=== PATIENT | male | born 1955 | race Two or more races ===

== ENCOUNTER 2016-11-17 23:37 | Inpatient (IN) | payer MEDICAID ==
[~2016-11-17] VITALS: Ht 167.6 cm; Wt 72.6 kg
[~2016-11-17 23:37] MED LIST: ARICEPT23 MG ORAL; ASPIR 8181 MG ORAL; ATORVASTATIN CA20 MG ORAL; ATORVASTATIN CA40 MG ORAL; CALCIUM 600 +1 EAC6 PO; DILANTIN100 MG ORAL; DONEPEZIL HCL5 M2 ORAL; KEPPRA500 M4 ORAL; LEVETIRACETAM500 MG ORAL; Levetiracetam ORAL; MULTIVITAMINS1 EAC2 ORAL; SERTRALINE HCL25 MG ORAL; SERTRALINE20 MG/1 M1 PO
[2016-11-17] MEDS ORDERED: levETIRAcetam 500mg vial IV ONE (23:40)
[2016-11-18] VITALS (10 sets, daily range): BP systolic 109–128; BP diastolic 53–88
[2016-11-18] MEDS ORDERED: levETIRAcetam 500 MG in D5W 110 ML IV ONE ×2
[2016-11-18 00:04] LABS: BASOPHILS % (AUTO) 1.5 % (0.0-2.0); EOSINOPHILS % (AUTO) 3.8 % (0.0-3.0); LYMPHOCYTES % (AUTO) 51.4 % (20.0-45.0); MEAN CORPUSCULAR HEMOGLOBIN 30.7 PG (27.0-31.0); MEAN CORPUSCULAR HGB CONC 34.8 G/DL (32.0-36.0); MEAN CORPUSCULAR VOLUME 88 FL (80-99); MEAN PLATELET VOLUME 6.7 FL (6.5-10.1); MONOCYTES % (AUTO) 11.3 % (1.0-10.0); PLATELET COUNT 286 K/UL (150-450); RED BLOOD COUNT 4.45 M/UL (4.70-6.10); RED CELL DISTRIBUTION WIDTH 12.3 % (11.6-14.8); WHITE BLOOD COUNT 6.2 K/UL (4.8-10.8)
[2016-11-18 00:32] LABS: ANION GAP 19 (5-15); CARBON DIOXIDE 25 mEQ/L (20-30); CHLORIDE 94 mEQ/L (98-107); CREATININE 1.2 mg/dL (0.7-1.2); GLOMERULAR FILTRATION RATE > 60 mL/min (>60); HEMOLYSIS 3; SODIUM 138 mEQ/L (135-145)
[2016-11-18] MEDS ORDERED: Phenytoin 500 MG in NS 110 ML IVPB ONE (00:45)
[2016-11-18] MEDS ORDERED: Phenytoin 250mg/5ml vial ONE (00:50)
--- NOTE | 2016-11-18 02:16 | Emergency Room Report ---
History of Present Illness General Chief Complaint: Seizure Source: Family Member, Medical Record, EMS Present Illness HPI This is a 60-year-old male with a history of seizure, CVA and dementia. Unknown etiology for his CVA. He gets frequent seizure. He is currently taking Dilantin Keppra. Per his son, he is compliant. There is no change in his regimen. No alcohol drugs. No sleep deprivation. He presents with 2 seizure activity tonight. He was tonic-clonic in nature. It lasted about 5 minutes. EMS was called. He had another seizure activity on route. He was given 5 mg of Versed IM. On arrival patient is unresponsive. No other complaint. History is from his son. Allergies: Coded Allergies: No Known Allergies (Unverified , 01/07/16) Patient History Past Medical History: see triage record, old chart reviewed, CVA/TIA, seizures Past Surgical History: other Pertinent Family History: none Social History: Denies: smoking Immunizations: other Reviewed Nursing Documentation: PMH: Agreed, PSxH: Agreed Nursing Documentation-PMH Past Medical History: No History, Except For Hx Cardiac Problems: Yes Hx Hypertension: Yes Hx Diabetes: Yes Hx Cancer: No Hx Gastrointestinal Problems: No Hx Neurological Problems: Yes - Altzhaimers, Dementia Hx Cerebrovascular Accident: Yes Hx Dementia: Yes Hx Alzheimer's Disease: Yes Hx Seizures: Yes Hx Weakness: Yes Review of Systems Eye: Denies: blurred vision, eye pain ENT: Denies: ear pain, nose congestion, throat swelling Respiratory: Denies: cough, shortness of breath Cardiovascular: Denies: chest pain, palpitations Gastrointestinal: Denies: abdominal pain, diarrhea, nausea, vomiting Musculoskeletal: Denies: back pain, joint pain Skin: Denies: rash Neurological: Denies: headache, numbness Endocrine: Denies: increased thirst, increased urine Hematologic/Lymphatic: Denies: easy bruising All Other Systems: negative except mentioned in HPI Physical Exam Vital Signs Date Time Temp Pulse Resp B/P Pulse Ox O2 Delivery O2 Flow Rate FiO2 11/17/16 23:32 100 18 140/78 100 Room Air vitals normal Sp02 EP Interpretation: reviewed, normal General Appearance: well appearing, no apparent distress, Postictal Head: normocephalic, atraumatic Eyes: bilateral eye EOMI, bilateral eye PERRL ENT: hearing grossly normal, normal pharynx Neck: full range of motion, supple, no meningismus Respiratory: chest non-tender, lungs clear, normal breath sounds Cardiovascular #1: regular rate, rhythm, no murmur Gastrointestinal: normal bowel sounds, non tender, no mass, no organomegaly, no bruit, non-distended Musculoskeletal: back normal, normal range of motion Neurologic: grossly normal Skin: warm/dry Medical Decision Making Diagnostic Impression: Primary Impression: Seizure disorder ER Course Patient presents with seizure. No trauma. He becoming more alert but still confused. I gave him extra dose of Keppra and Dilantin. We'll observe him until he is more awake. At that point, we'll discharge home with family. it is now 6:30 AM. On recheck this more awake but still confused. Because of this, I will either place him in telemetry observation versus transfer. No focal deficit to indicate CVA. Lab Results Impression labs normal Last Vital Signs Date Time Temp Pulse Resp B/P Pulse Ox O2 Delivery O2 Flow Rate FiO2 11/18/16 00:01 95 19 114/70 100 Room Air Status: improved Disposition: PLACE IN OBSERVATION Condition: Stable Scripts Diazepam (DIASTAT ACUDIAL) 1 Each Kit 1 EACH RC ONCE, #1 KIT Prov: ENZO DUKE M.D. 11/18/16 Referrals: [facility],REFERRING (PCP) Patient Instructions: Seizure, Adult Additional Instructions: Followup with your DrAlisa in 2-3 days. Return if symptom worsen. ENZO DUKE M.D. Nov 18, 2016 02:16
[2016-11-18] MEDS ORDERED: DIASTAT ACUDIA1 EAC1 RC (02:37)
[2016-11-18] MEDS ORDERED: Miralax 17gm pkt ORAL PRN ×2 (10:00→21:00)
[2016-11-18] MEDS ORDERED: Zolpidem 5mg tab ORAL PRN ×2 (10:00→21:00)
[2016-11-18] MEDS ORDERED: Mylanta II UD 30ml ORAL PRN ×2 (10:00→18:00)
[2016-11-18] MEDS ORDERED: LORazepam Inj 2mg/ml 1ml IV PRN ×2 (10:00→16:00)
[2016-11-18] MEDS ORDERED: Morphine Sulfate 2mg/ml Inj IVP PRN ×2 (10:00→17:00)
--- NOTE | 2016-11-18 12:30 | History and Physical ---
History of Present Illness General Date patient seen: Nov 18, 2016 Reason for Hospitalization: Seizure Present Illness HPI 60-year-old male with a history of seizure, CVA and dementia, compliant with meds, brought in with CC 2 seizure activity within one day. He was tonic- clonic in nature. It lasted about 5 minutes. EMS was called. He had another seizure activity on route. He was given 5 mg of Versed IM. On arrival to ER patient was unresponsive. Pt is admitted to telemetry for further evaluation. Currently pt is awake, looks comfortable but nor responding to any question even in Urdu. Pts underlying mental status is unknown at this time Allergies: Coded Allergies: No Known Allergies (Unverified , 01/07/16) Medication History Scheduled Aspirin* (Aspir 81*), 81 MG ORAL DAILY, (Reported) Atorvastatin Calcium* (Atorvastatin Calcium*), 40 MG ORAL BEDTIME, (Reported) Calcium Carbonate/Vitamin D3 (Calcium 600 + Vit D 400 Tablet), 1 EACH PO DAILY, (Reported) Diazepam (Diastat Acudial), 1 EACH RC ONCE Donepezil Hcl (Aricept), 5 MG ORAL DAILY, (Reported) Levetiracetam (Keppra), 500 MG ORAL EVERY 12 HOURS, (Reported) Levetiracetam* (Levetiracetam*), 500 MG ORAL TWICE A DAY, (Reported) Multivitamins* (Multivitamins*), 1 TAB ORAL DAILY, (Reported) Phenytoin Sodium Extended* (Dilantin*), 300 MG ORAL BEDTIME, (Reported) Sertraline Hcl (Sertraline Hcl), 50 MG PO DAILY, (Reported) [Levetiracetam], 500 MG ORAL Q12HR Patient History Healthcare decision maker Resuscitation status Advanced Directive on File No Past Medical/Surgical History Past Medical/Surgical History: (1) Seizure disorder (2) DM (diabetes mellitus) (3) s/p multiple strokes with dementia, spastic quadriparesis Review of Systems All Other Systems: negative except mentioned in HPI Physical Exam General Appearance: WD/WN Lines, tubes and drains: peripheral, central line HEENT: normocephalic, atraumatic Neck: non-tender, normal alignment Respiratory/Chest: chest wall non-tender, lungs clear Cardiovascular/Chest: normal peripheral pulses, normal rate Abdomen: normal bowel sounds Last 24 Hour Vital Signs Date Time Temp Pulse Resp B/P Pulse Ox O2 Delivery O2 Flow Rate FiO2 11/18/16 11:40 98.1 94 20 123/74 96 Room Air 11/18/16 08:53 98.1 87 20 127/74 97 Room Air 11/18/16 08:24 85 16 109/59 98 Room Air 11/18/16 08:00 85 16 109/59 98 Room Air 11/18/16 05:23 90 18 128/53 97 Room Air 11/18/16 03:54 89 14 126/88 96 Room Air 11/18/16 02:28 87 12 118/68 97 Room Air 11/18/16 00:01 95 19 114/70 100 Room Air 11/18/16 00:01 95 19 Room Air 11/17/16 23:32 100 18 140/78 100 Room Air Intake and Output 11/17/16 11/18/16 19:00 07:00 Intake Total 1235 ml Balance 1235 ml Intake IV Total 1235 ml Laboratory Tests Test 11/17/16 23:50 White Blood Count 6.2 K/UL (4.8-10.8) Red Blood Count 4.45 M/UL (4.70-6.10) L Hemoglobin 13.7 G/DL (14.2-18.0) L Hematocrit 39.2 % (42.0-52.0) L Mean Corpuscular Volume 88 FL (80-99) Mean Corpuscular Hemoglobin 30.7 PG (27.0-31.0) Mean Corpuscular Hemoglobin Concent 34.8 G/DL (32.0-36.0) Red Cell Distribution Width 12.3 % (11.6-14.8) Platelet Count 286 K/UL (150-450) Mean Platelet Volume 6.7 FL (6.5-10.1) Neutrophils (%) (Auto) 32.0 % (45.0-75.0) L Lymphocytes (%) (Auto) 51.4 % (20.0-45.0) H Monocytes (%) (Auto) 11.3 % (1.0-10.0) H Eosinophils (%) (Auto) 3.8 % (0.0-3.0) H Basophils (%) (Auto) 1.5 % (0.0-2.0) Sodium Level 138 mEQ/L (135-145) Potassium Level 4.0 mEQ/L (3.4-4.9) Chloride Level 94 mEQ/L (98-107) L Carbon Dioxide Level 25 mEQ/L (20-30) Anion Gap 19 (5-15) H Blood Urea Nitrogen 16 mg/dL (7-23) Creatinine 1.2 mg/dL (0.7-1.2) Estimat Glomerular Filtration Rate > 60 mL/min (>60) Glucose Level 107 mg/dL (74-106) H Calcium Level 9.0 mg/dL (8.6-10.2) Phenytoin (Dilantin) Level 9.3 ug/mL (10-20) L Height (Feet): 5 Height (Inches): 6.00 Weight (Pounds): 160 Medications Current Medications Medications (Trade) Dose Ordered Sig/Radha Route PRN Reason Start Time Stop Time Status Last Admin Dose Admin Acetaminophen (Tylenol) 650 mg Q4H PRN ORAL fever 11/18/16 10:00 12/18/16 09:59 Al Hydroxide/Mg Hydroxide (Mylanta II) 30 ml Q6H PRN ORAL dyspepsia 11/18/16 10:00 12/18/16 09:59 Aspirin (Ecotrin) 81 mg DAILY ORAL 11/19/16 09:00 12/19/16 08:59 Atorvastatin Calcium (Lipitor) 40 mg BEDTIME ORAL 11/18/16 21:00 12/18/16 20:59 Dextrose (Dextrose 50%) STAT PRN IV Hypoglycemia 11/18/16 10:00 12/18/16 09:59 Heparin Sodium (Porcine) (Heparin 5000 units/ml) 5,000 units EVERY 12 HOURS SUBQ 11/18/16 21:00 12/18/16 20:59 Levetiracetam (Keppra) 500 mg EVERY 12 HOURS ORAL 11/18/16 11:00 12/18/16 10:59 11/18/16 11:08 Lorazepam (Ativan 2mg/ml 1ml) 2 mg EVERY HOUR PRN IV seizures 11/18/16 10:00 11/25/16 09:59 Morphine Sulfate (Morphine Sulfate) 1 mg EVERY 4 HOURS PRN IVP For Pain 11/18/16 10:00 11/25/16 09:59 Ondansetron HCl (Zofran) 4 mg Q6H PRN IVP Nausea & Vomiting 11/18/16 10:00 12/18/16 09:59 Phenytoin (Dilantin) 300 mg BEDTIME ORAL 11/18/16 21:00 12/18/16 20:59 Polyethylene Glycol (Miralax) 17 gm HSPRN PRN ORAL Constipation 11/18/16 10:00 12/18/16 09:59 Zolpidem Tartrate (Ambien) 5 mg HSPRN PRN ORAL Insomnia 11/18/16 10:00 12/18/16 09:59 Assessment/Plan Problem List: (1) Uncontrolled seizures ICD Codes: R56.9 - Unspecified convulsions SNOMED: 86415842 (2) s/p multiple strokes with dementia, spastic quadriparesis (3) Seizure disorder ICD Codes: G40.909 - Epilepsy, unspecified, not intractable, without status epilepticus SNOMED: 944884126 Assessment/Plan neuro evaluation resume seizure meds aspiration precaution pt/ot LUKE ANDINO Nov 18, 2016 12:30
--- NOTE | 2016-11-18 13:08 | Neurology Progress Note ---
Objective Physical Exam Last Vital Signs Date Time Temp Pulse Resp B/P Pulse Ox O2 Delivery O2 Flow Rate FiO2 11/18/16 11:40 98.1 94 20 123/74 96 Room Air Laboratory Tests Test 11/17/16 23:50 White Blood Count 6.2 K/UL (4.8-10.8) Red Blood Count 4.45 M/UL (4.70-6.10) L Hemoglobin 13.7 G/DL (14.2-18.0) L Hematocrit 39.2 % (42.0-52.0) L Mean Corpuscular Volume 88 FL (80-99) Mean Corpuscular Hemoglobin 30.7 PG (27.0-31.0) Mean Corpuscular Hemoglobin Concent 34.8 G/DL (32.0-36.0) Red Cell Distribution Width 12.3 % (11.6-14.8) Platelet Count 286 K/UL (150-450) Mean Platelet Volume 6.7 FL (6.5-10.1) Neutrophils (%) (Auto) 32.0 % (45.0-75.0) L Lymphocytes (%) (Auto) 51.4 % (20.0-45.0) H Monocytes (%) (Auto) 11.3 % (1.0-10.0) H Eosinophils (%) (Auto) 3.8 % (0.0-3.0) H Basophils (%) (Auto) 1.5 % (0.0-2.0) Sodium Level 138 mEQ/L (135-145) Potassium Level 4.0 mEQ/L (3.4-4.9) Chloride Level 94 mEQ/L (98-107) L Carbon Dioxide Level 25 mEQ/L (20-30) Anion Gap 19 (5-15) H Blood Urea Nitrogen 16 mg/dL (7-23) Creatinine 1.2 mg/dL (0.7-1.2) Estimat Glomerular Filtration Rate > 60 mL/min (>60) Glucose Level 107 mg/dL (74-106) H Calcium Level 9.0 mg/dL (8.6-10.2) Phenytoin (Dilantin) Level 9.3 ug/mL (10-20) L Impression/Recommendations Problems: (1) Epileptic seizure, generalized (2) Uncontrolled seizures (3) DM (diabetes mellitus) (4) s/p multiple strokes with dementia, spastic quadriparesis Status: unchanged Recommendations # [id number] RACH IBARRA Nov 18, 2016 13:08
[2016-11-18] MEDS ORDERED: Phenytoin 100mg cap ORAL SCH ×2 (14:00→21:00)
[2016-11-18] MEDS: Phenytoin 100mg cap ORAL SCH (17:44)
--- NOTE | 2016-11-18 19:28 | Consultation ---
DATE OF CONSULTATION: 11/18/2016 NEUROLOGICAL CONSULTATION CONSULTING PHYSICIAN: Nima Mejia M.D. REFERRING PHYSICIAN: Alli Chase M.D. HISTORY OF PRESENT ILLNESS: This is a 60-year-old man, who is seen in neurological consultation to evaluate the exacerbation of seizure activities. The patient has a complex medical history, known to this facility from several admissions in the last year, known for recurrent seizures, maintained on Dilantin and Keppra. Apparently, the patient was admitted after having two generalized seizures at nighttime. Paramedics were called to the scene, and the patient was observed to have another seizure episode en route. This was covered with 5 mg of Versed IM. On arrival, the patient was unresponsive and while on Observation, gradually awakening. His vital signs were stable. Blood pressure 140/78, heart rate of 100. He received extra doses of Keppra and Dilantin. The patient's initial workup included laboratory studies with CBC revealing mild anemia, hemoglobin 13.7 and hematocrit 39.2. His chemistry panel unremarkable. Toxicology panel, phenytoin level 9.3. MEDICATIONS: Treatment list prior to admission included aspirin, atorvastatin, diazepam p.r.n., Aricept, Keppra 500 mg b.i.d., phenytoin 300 mg at bedtime, and sertraline. ALLERGIES: None reported. SOCIAL HISTORY: Lives at home with his and son. No evidence of previous alcohol or drug abuse. PAST MEDICAL HISTORY: The patient has a history of recurrent strokes with initial seizure event in 2011, hypertension, history of depression, and history of hyperlipidemia. Initial assessment in November of last year revealed evidence of multiple strokes with mild right hemiparesis. This had rapidly progressed in January last year, developing quadriparesis more on the right side with recurrent seizures. MRI of the brain revealed the presence of multiple lacunar strokes. The patient was diagnosed with severe dementia. REVIEW OF SYSTEMS: Unable to obtain due to the patient's status. FAMILY HISTORY: Noncontributory with no evidence of multiple strokes. PHYSICAL EXAMINATION: GENERAL: A well-developed, well-nourished man, fully awake, sitting in his bed mumbling. VITAL SIGNS: Now stable. Blood pressure 123/74 and temperature 98.1. HEENT: Head, normocephalic. No evidence of injuries. Eyes, ears, nose, and throat are clear. NECK: Rigid in all directions. MUSCULOSKELETAL: Unremarkable with no deformities. Peripheral pulses 1+ and symmetric. MENTAL STATUS: The patient is awake. He has eye contact. He is mumbling incoherently. He does not follow commands given in his ak[place] language. He does not pronounce any sentences. CRANIAL NERVES: Cranial Nerve II: Pupils both responding to light and accommodation. Extraocular movement full range. CRANIAL NERVE V: Normal corneal responses. CRANIAL NERVE VII: Slight droop of left nasolabial fold. CRANIAL NERVE VIII: Grossly normal hearing. CRANIAL NERVE IX THROUGH XII: Tongue is in midline. The patient is assisted with feeding. Able to swallow. MOTOR EXAMINATION: Spastic right upper and right lower extremity. Increased tone in the left extremities with strength 3/5 in the right upper and right lower extremities. Slightly reduced strength 5-/5 in the left upper and left lower extremities. Deep tendon reflexes very brisk, 4+ on the right and 3+ on the left. Positive Babinski on the right. SENSORY EXAMINATION: Some inconsistent withdrawing to pin in both upper and lower extremities. IMPRESSION: 1. Extensive ischemic cerebrovascular disease with progressive quadriparesis, more on the right, global aphasia, dementia, and chronic seizure activities. 2. Hypertension. 3. Hyperlipidemia. DISCUSSION: 1. The patient has extensive ischemic cerebrovascular disease, multiple strokes of 2, origin which is not clear, although probably contributed by underlying hypertensive angiopathy and hyperlipidemia. 2. In addition, the patient developed breakthrough seizure activities while being covered with two anticonvulsants. 3. We will increase dose of Keppra up to 1500 mg twice a day, maintain on Dilantin 400 mg daily. Hold unessential treatment including. 4. PT/OT for mobility protocol. 5. We will obtain coagulation panel, lipid panel, ZEE, and sedimentation rate. Thank you for allowing me to see this interesting patient in neurological consultation. Nima Mejia M.D. DR: HENRY JOB#: [id number] CC:
[2016-11-18] MEDS: Heparin 5000 units/ml inj SUBQ SCH (20:18)
[2016-11-18] MEDS ORDERED: Heparin 5000 units/ml inj SUBQ SCH (21:00)
[2016-11-19] VITALS: BP 102/64
[2016-11-19 04:00] VITALS: BP 107/61
[2016-11-19 07:19] LABS: BASOPHILS % (AUTO) 1.2 % (0.0-2.0); EOSINOPHILS % (AUTO) 0.1 % (0.0-3.0); MEAN CORPUSCULAR HEMOGLOBIN 29.7 PG (27.0-31.0); MEAN CORPUSCULAR HGB CONC 33.9 G/DL (32.0-36.0); MEAN CORPUSCULAR VOLUME 88 FL (80-99); MEAN PLATELET VOLUME 6.7 FL (6.5-10.1); MONOCYTES % (AUTO) 9.4 % (1.0-10.0); NEUTROPHILS % (AUTO) 61.3 % (45.0-75.0); PLATELET COUNT 294 K/UL (150-450); RED BLOOD COUNT 4.54 M/UL (4.70-6.10); WHITE BLOOD COUNT 7.9 K/UL (4.8-10.8)
[2016-11-19] MEDS: Phenytoin 100mg cap ORAL SCH ×2 (08:26→18:00)
[2016-11-19] MEDS: Aspirin EC 81mg tab ORAL SCH (08:26)
[2016-11-19] MEDS: Heparin 5000 units/ml inj SUBQ SCH ×2 (08:32→21:24)
[2016-11-19 08:34] VITALS: BP 127/67
[2016-11-19] MEDS ORDERED: Aspirin EC 81mg tab ORAL SCH (09:00)
[2016-11-19 09:02] LABS: ALANINE AMINOTRANSFERASE 25 U/L (3-41); ALBUMIN/GLOBULIN RATIO 0.9 (1.0-2.7); ANION GAP 19 (5-15); ASPARTATE AMINO TRANSFERASE 25 U/L (5-40); CALCIUM 8.8 mg/dL (8.6-10.2); CARBON DIOXIDE 23 mEQ/L (20-30); CHLORIDE 93 mEQ/L (98-107); CREATININE 0.8 mg/dL (0.7-1.2); GLOMERULAR FILTRATION RATE > 60 mL/min (>60); HEMOLYSIS 15; POTASSIUM 4.1 mEQ/L (3.4-4.9); SODIUM 135 mEQ/L (135-145); TOTAL PROTEIN 7.3 g/dL (6.6-8.7)
[2016-11-19 11:27] VITALS: BP 127/74
[2016-11-19 16:00] VITALS: BP 123/74
[2016-11-19] MEDS ORDERED: KEPPRA500 M3 ORAL (16:01)
[2016-11-19] MEDS ORDERED: DILANTIN100 MG ORAL (16:01)
[2016-11-19 19:00] VITALS: BP 124/78
--- NOTE | 2016-11-19 23:40 | Pulmonology Progress Note ---
Assessment/Plan Problems: (1) Uncontrolled seizures (2) s/p multiple strokes with dementia, spastic quadriparesis (3) Seizure disorder Assessment/Plan Anti-convulsant therapy Seizure precautions Tight BP BG control Aspiration precautions Tolerating Feeding Shift often to mitigate pressure ulcer PT/OT eval Subjective ROS Limited/Unobtainable: Yes Constitutional: Reports: anorexia, chills, fatigue, fever Respiratory: Reports: dyspnea at rest, productive cough, shortness of breath, sputum Neurologic: Reports: confusion, weakness Skin: Reports: rash, ulcer Allergies: Coded Allergies: No Known Allergies (Unverified , 01/07/16) Objective Last 24 Hour Vital Signs Date Time Temp Pulse Resp B/P Pulse Ox O2 Delivery O2 Flow Rate FiO2 11/19/16 19:00 98.2 100 20 124/78 94 Room Air 11/19/16 16:00 98.2 100 20 123/74 94 Room Air 11/19/16 11:27 99.0 108 20 127/74 95 Room Air 11/19/16 08:34 99.6 109 20 127/67 95 Room Air 11/19/16 04:00 98.4 100 20 107/61 94 Room Air 11/19/16 04:00 98.4 108 107/61 Room Air 11/19/16 00:00 98.6 106 18 102/64 93 Room Air Intake and Output 11/18/16 11/19/16 19:00 07:00 Intake Total 120 ml 400 ml Output Total 200 ml 550 ml Balance -80 ml -150 ml Intake Oral 120 ml 400 ml Output Urine Total 200 ml Other 550 ml # Voids 1 1 General Appearance: no acute distress HEENT: normocephalic, atraumatic, PERRL Respiratory/Chest: chest wall non-tender, decreased breath sounds, accessory muscle use, rhonchi Cardiovascular: normal peripheral pulses, normal rate, regular rhythm Abdomen: normal bowel sounds, soft, non tender, no organomegaly Genitourinary: normal external genitalia Extremities: no cyanosis Skin: rash, lesions, ulcers Neurologic/Psychiatric: unresponsiveness Laboratory Tests 11/19/16 06:20: White Blood Count 7.9, Red Blood Count 4.54L, Hemoglobin 13.5L, Hematocrit 39.8L , Mean Corpuscular Volume 88, Mean Corpuscular Hemoglobin 29.7, Mean Corpuscular Hemoglobin Concent 33.9, Red Cell Distribution Width 12.0, Platelet Count 294, Mean Platelet Volume 6.7, Neutrophils (%) (Auto) 61.3, Lymphocytes (% ) (Auto) 28.0, Monocytes (%) (Auto) 9.4, Eosinophils (%) (Auto) 0.1, Basophils ( %) (Auto) 1.2, Sodium Level 135, Potassium Level 4.1, Chloride Level 93L, Carbon Dioxide Level 23, Anion Gap 19H, Blood Urea Nitrogen 14, Creatinine 0.8, Estimat Glomerular Filtration Rate > 60, Glucose Level 115H, Calcium Level 8.8, Total Bilirubin 0.2, Aspartate Amino Transf (AST/SGOT) 25, Alanine Aminotransferase (ALT/SGPT) 25, Alkaline Phosphatase 169H, Total Protein 7.3, Albumin 3.6, Globulin 3.7, Albumin/Globulin Ratio 0.9L Current Medications Medications (Trade) Dose Ordered Sig/Radha Route PRN Reason Start Time Stop Time Status Last Admin Dose Admin Acetaminophen (Tylenol) 650 mg Q4H PRN ORAL fever 11/18/16 18:00 12/18/16 17:59 Al Hydroxide/Mg Hydroxide (Mylanta II) 30 ml Q6H PRN ORAL dyspepsia 11/18/16 18:00 12/18/16 17:59 Aspirin (Ecotrin) 81 mg DAILY ORAL 11/19/16 09:00 12/19/16 08:59 11/19/16 08:26 Atorvastatin Calcium (Lipitor) 40 mg BEDTIME ORAL 11/18/16 21:00 12/18/16 20:59 11/19/16 21:23 Dextrose (Dextrose 50%) STAT PRN IV Hypoglycemia 11/18/16 16:00 12/18/16 15:59 Heparin Sodium (Porcine) (Heparin 5000 units/ml) 5,000 units EVERY 12 HOURS SUBQ 11/18/16 21:00 12/18/16 20:59 11/19/16 21:24 Levetiracetam (Keppra) 1,000 mg EVERY 12 HOURS ORAL 11/18/16 21:00 12/18/16 20:59 11/19/16 21:22 Lorazepam (Ativan 2mg/ml 1ml) 2 mg EVERY HOUR PRN IV seizures 11/18/16 16:00 11/25/16 15:59 Morphine Sulfate (Morphine Sulfate) 1 mg EVERY 4 HOURS PRN IVP For Pain 11/18/16 17:00 11/25/16 16:59 Ondansetron HCl (Zofran) 4 mg Q6H PRN IVP Nausea & Vomiting 11/18/16 16:00 12/18/16 15:59 Phenytoin (Dilantin) 200 mg BID ORAL 11/18/16 18:00 12/18/16 17:59 11/19/16 18:00 Polyethylene Glycol (Miralax) 17 gm HSPRN PRN ORAL Constipation 11/18/16 21:00 12/18/16 20:59 Zolpidem Tartrate (Ambien) 5 mg HSPRN PRN ORAL Insomnia 11/18/16 21:00 12/18/16 20:59 LUKE ANDINO Nov 19, 2016 23:40
[2016-11-20] VITALS: BP 130/76
[2016-11-20 04:00] VITALS: BP 126/73
[2016-11-20 08:15] VITALS: BP 96/77
[2016-11-20] MEDS: Aspirin EC 81mg tab ORAL SCH (08:39)
[2016-11-20] MEDS: Phenytoin 100mg cap ORAL SCH ×2 (08:39→17:56)
[2016-11-20] MEDS: Heparin 5000 units/ml inj SUBQ SCH (08:40)
[2016-11-20 12:01] VITALS: BP 120/64
--- NOTE | 2016-11-20 15:13 | Neurology Progress Note ---
Interim History Interim History ROS Limited/Unobtainable: Yes Complaints: nonverbal Events: no sz noted Objective Physical Exam Last Vital Signs Date Time Temp Pulse Resp B/P Pulse Ox O2 Delivery O2 Flow Rate FiO2 11/20/16 12:01 98.3 77 21 120/64 95 Room Air General: well developed, well nourished, no acute distress Head: normocophalic, atraumatic Neck: no rigidity Neurologic Exam Mental Status: awake, other - eye contact no comprehension nonverbal Speech: other - mumbling Language: other Cranial Nerve II: fundus normal, visual lambert Cranial Nerves III, IV, : PERRLA Cranial Nerve V: normal facial sensations Cranial Nerve VII: no facial asymmetry Cranial Nerve VIII: normal hearing Cranial Nerve IX: normal palate elevation, gag response Cranial Nerve X: no voice hoarseness Cranial Nerve XI: SCM symmetric, trapezii function normal Cranial Nerve XII: tongue midline, no tongue atrophy/fasciculations Motor System: no involuntary movement, no muscle wasting, other - diffuse rigidity R>L Sensory: other Coordination: other Deep Tendon Reflexes: 0 ankle (L), 0 ankle (R), 0 bicep (L), 0 bicep (R), 0 brachioradialis (L), 0 brachioradialis (R), 0 knee (L), 0 knee (R), 0 tricep (L) , 0 tricep (R) Reflexes: mute plantar (L), mute plantar (R) Impression/Recommendations Problems: (1) Epileptic seizure, generalized (2) Uncontrolled seizures (3) DM (diabetes mellitus) (4) s/p multiple strokes with dementia, spastic quadriparesis Status: stable Recommendations # [id number] cont present rx neuro RACH Barroso Nov 20, 2016 15:13
[2016-11-20 16:00] VITALS: BP 124/68
--- NOTE | 2016-11-20 18:56 | Cardiology Report ---
APPROVED REPORT EKG Measurement Heart [id number] Normal sinus rhythm Cannot rule out Anterior infarct, age undetermined Abnormal ECG
--- NOTE | 2016-11-22 10:07 | Discharge Summary ---
Discharge Summary Hospital Course Date of Admission Nov 18, 2016 at 06:43 Date of Discharge Nov 20, 2016 at 19:40 Admitting Diagnosis Seizure HPI Gavin Kenyon is a 60 year old male who was admitted on Nov 18, 2016 at 06:43 for Seizure Hospital Course [id number] Discharge Discharge Disposition Patient was discharged to Home (01) Discharge Diagnoses: Molly Polo NP Nov 22, 2016 10:07
--- NOTE | 2016-11-22 21:30 | Discharge Summary 2 SIG ---
DATE OF ADMISSION: 11/18/2016 DATE OF DISCHARGE: 11/20/2016 CONSULTANTS: Nima Mejia M.D. BRIEF HOSPITAL COURSE: The patient is a 60-year-old male with history of seizures, CVA, and dementia. He is compliant with medications and was brought in secondary to seizure activity. He was noted to have tonic clonic seizures that lasted about 5 minutes. Paramedics were called in. He had another seizure episode while en route and was given 5 mg of Versed IM. On arrival to ED, the patient was unresponsive, postictal, and was admitted to telemetry for further evaluation. Dr. Mejia was consulted. The patient has a known recurrent seizures, maintained on Dilantin and Keppra. He received extra doses of Keppra and Dilantin at ED. On initial assessment of November of in the last year, revealed evidence of multiple strokes with mild right hemiparesis, which rapidly progressed as quadriparesis more on the right. Keppra was increased to 1500 mg twice a day and maintained on Dilantin 400 mg daily. No breakthrough seizures were noted during the hospital stay. The patient was eventually discharged home. FINAL DIAGNOSES: 1. Uncontrolled seizures with underlying seizure disorder. 2. Multiple strokes with dementia and spastic quadriparesis. 3. Diabetes mellitus. Alli Chase M.D. I have been assigned to dictate discharge summary on this account and I was not involved in the patient's management. Molly Polo N.P. DR: MYNOR JOB#: [id number] CC: REJI
== END 2016-11-20 19:40 | disposition home or self-care (01) | DRG 100 ==
LOC: EDBD 23:37 → EMR 23:40 → 2E 11-18 06:43 → EDBEDREQ 11-18 08:04 → 4E 11-18 14:35
DX: G40.409 Other generalized epilepsy and epileptic syndromes, not intractable, without status epilepticus (principal); G82.50 Quadriplegia, unspecified; I69.351 Hemiplegia and hemiparesis following cerebral infarction affecting right dominant side; E11.9 Type 2 diabetes mellitus without complications; F03.90 Unspecified dementia, unspecified severity, without behavioral disturbance, psychotic disturbance, mood disturbance, and anxiety; I69.365 Other paralytic syndrome following cerebral infarction, bilateral; Z79.82 Long term (current) use of aspirin; Z79.899 Other long term (current) drug therapy; I69.398 Other sequelae of cerebral infarction; I69.320 Aphasia following cerebral infarction
CPT/HCPCS: 36415; 80048; 80053; 80185; 80299; 82962; 85025; 93005; 96360; 96361; J1165

== ENCOUNTER 2016-12-16 03:13 | Inpatient (IN) | payer MEDICAID ==
[2016-12-16] VITALS (7 sets, daily range): BP systolic 16–135; BP diastolic 60–82
[~2016-12-16] VITALS: Ht 165.1 cm; Wt 68.0 kg
[~2016-12-16 03:13] MED LIST changes: +DIASTAT ACUDIA1 EAC1 RC; +KEPPRA500 M3 ORAL
[2016-12-16] MEDS ORDERED: levETIRAcetam 500mg vial IV ONE (03:23)
[2016-12-16 03:28] LABS: BASOPHILS % (AUTO) 1.3 % (0.0-2.0); EOSINOPHILS % (AUTO) 2.2 % (0.0-3.0); LYMPHOCYTES % (AUTO) 36.8 % (20.0-45.0); MEAN CORPUSCULAR HEMOGLOBIN 30.2 PG (27.0-31.0); MEAN CORPUSCULAR HGB CONC 33.5 G/DL (32.0-36.0); MEAN CORPUSCULAR VOLUME 90 FL (80-99); MONOCYTES % (AUTO) 8.3 % (1.0-10.0); NEUTROPHILS % (AUTO) 51.5 % (45.0-75.0); PLATELET COUNT 271 K/UL (150-450); RED BLOOD COUNT 4.67 M/UL (4.70-6.10); RED CELL DISTRIBUTION WIDTH 12.9 % (11.6-14.8); WHITE BLOOD COUNT 10.1 K/UL (4.8-10.8)
[2016-12-16] MEDS ORDERED: levETIRAcetam 500 MG in D5W 110 ML IVPB ONE (03:30)
[2016-12-16 03:47] LABS: ANION GAP 20 (5-15); CALCIUM 9.1 mg/dL (8.6-10.2); CARBON DIOXIDE 23 mEQ/L (20-30); CHLORIDE 95 mEQ/L (98-107); CREATININE 0.8 mg/dL (0.7-1.2); GLOMERULAR FILTRATION RATE > 60 mL/min (>60); HEMOLYSIS 3; POTASSIUM 3.3 mEQ/L (3.4-4.9); SODIUM 138 mEQ/L (135-145)
--- NOTE | 2016-12-16 05:09 | Emergency Room Report ---
History of Present Illness General Chief Complaint: Seizure Source: Family Member, Medical Record, EMS Present Illness HPI This is a 61-year-old gentleman well-known to me. He has a history of early- onset CVA and had resultant seizure from it. He is taking Keppra and Dilantin. He is compliant with his medication. He had a tonic-clonic seizure activity lasting about 5 minutes. EMS witness another one and gave him Versed IM. Right now he is not responsive and is sleeping. He usually get a very a prolonged postictal period. no trauma. Denies any other complaint. No fever or chills but no nausea no vomiting. Allergies: Coded Allergies: No Known Allergies (Unverified , 01/07/16) Patient History Past Medical History: see triage record, old chart reviewed, CVA/TIA, seizures Past Surgical History: other Pertinent Family History: none Social History: Denies: smoking Immunizations: other Reviewed Nursing Documentation: PMH: Agreed, PSxH: Agreed Nursing Documentation-PMH Hx Cardiac Problems: Yes Hx Hypertension: Yes Hx Diabetes: No - patient does NOT have DM Hx Cancer: No Hx Gastrointestinal Problems: No Hx Neurological Problems: Yes - [place]aimers, Dementia Hx Cerebrovascular Accident: Yes Hx Dementia: Yes Hx Alzheimer's Disease: Yes Hx Seizures: Yes Hx Weakness: Yes Review of Systems Eye: Denies: blurred vision, eye pain ENT: Denies: ear pain, nose congestion, throat swelling Respiratory: Denies: cough, shortness of breath Cardiovascular: Denies: chest pain, palpitations Gastrointestinal: Denies: abdominal pain, diarrhea, nausea, vomiting Musculoskeletal: Denies: back pain, joint pain Skin: Denies: rash Neurological: Denies: headache, numbness Endocrine: Denies: increased thirst, increased urine Hematologic/Lymphatic: Denies: easy bruising All Other Systems: negative except mentioned in HPI Physical Exam Vital Signs Date Time Temp Pulse Resp B/P Pulse Ox O2 Delivery O2 Flow Rate FiO2 12/16/16 03:10 97.3 106 20 120/71 98 Non-Rebreather 15.0 vitals normal Sp02 EP Interpretation: reviewed, normal General Appearance: well appearing, no apparent distress, other - Somnolent Head: normocephalic, atraumatic Eyes: bilateral eye EOMI, bilateral eye PERRL ENT: hearing grossly normal, normal pharynx Neck: full range of motion, supple, no meningismus Respiratory: chest non-tender, lungs clear, normal breath sounds Cardiovascular #1: regular rate, rhythm, no murmur Gastrointestinal: normal bowel sounds, non tender, no mass, no organomegaly, no bruit, non-distended Musculoskeletal: back normal, normal range of motion Neurologic: grossly normal Psychiatric: mood/affect normal Skin: warm/dry Medical Decision Making Diagnostic Impression: Primary Impression: Epileptic seizure, generalized Additional Impression: Encephalopathy acute ER Course Patient presents with seizure and has a prolonged postictal period usually take a day or 2. Will make for monitoring. No trauma. See no need for CT scan. Rhythm Strip Diag. Results EP Interpretation: yes Rate: 88 Rhythm: NSR, no PVC's, no ectopy Last Vital Signs Date Time Temp Pulse Resp B/P Pulse Ox O2 Delivery O2 Flow Rate FiO2 12/16/16 03:10 97.3 106 20 120/71 98 Non-Rebreather 15.0 Status: improved Disposition: ADMITTED INPATIENT Condition: Serious ENZO DUKE M.D. Dec 16, 2016 05:09
[2016-12-16] MEDS ORDERED: Miralax 17gm pkt ORAL PRN (08:00)
[2016-12-16] MEDS ORDERED: Morphine Sulfate 2mg/ml Inj IVP PRN (08:00)
[2016-12-16] MEDS ORDERED: LORazepam Inj 2mg/ml 1ml IV PRN (08:00)
[2016-12-16] MEDS ORDERED: Zolpidem 5mg tab ORAL PRN (08:00)
[2016-12-16] MEDS ORDERED: Mylanta II UD 30ml ORAL PRN (08:00)
[2016-12-16] MEDS: Phenytoin 100mg cap ORAL SCH ×2 (08:54→18:14)
[2016-12-16] MEDS: Heparin 5000 units/ml inj SUBQ SCH ×2 (08:55→21:19)
--- NOTE | 2016-12-16 12:24 | History and Physical ---
History of Present Illness General Reason for Hospitalization: Seizure Present Illness HPI 61-year-old male with history of early-onset CVA and seizure from presented to [place] ER with tonic-clonic seizure activity lasting about 5 minutes. He received Versed IM from paramedics. He was obtundent in ER and admitted to [facility] for further evaluation. Allergies: Coded Allergies: No Known Allergies (Unverified , 01/07/16) Medication History Scheduled Aspirin* (Aspir 81*), 81 MG ORAL DAILY, (Reported) Atorvastatin Calcium* (Atorvastatin Calcium*), 40 MG ORAL BEDTIME, (Reported) Calcium Carbonate/Vitamin D3 (Calcium 600 + Vit D 400 Tablet), 1 EACH PO DAILY, (Reported) Diazepam (Diastat Acudial), 1 EACH RC ONCE Donepezil Hcl (Aricept), 5 MG ORAL DAILY, (Reported) Levetiracetam (Keppra), 500 MG ORAL EVERY 12 HOURS, (Reported) Levetiracetam (Levetiracetam), 1,000 MG ORAL EVERY 12 HOURS Levetiracetam* (Levetiracetam*), 500 MG ORAL TWICE A DAY, (Reported) Multivitamins* (Multivitamins*), 1 TAB ORAL DAILY, (Reported) Phenytoin Sodium Extended* (Dilantin*), 300 MG ORAL BEDTIME, (Reported) Phenytoin Sodium Extended* (Dilantin*), 200 MG ORAL BID Sertraline Hcl (Sertraline Hcl), 50 MG PO DAILY, (Reported) [Levetiracetam], 500 MG ORAL Q12HR Patient History Healthcare decision maker Resuscitation status Full Code Advanced Directive on File No Past Medical/Surgical History Past Medical/Surgical History: (1) Epileptic seizure, generalized (2) DM (diabetes mellitus) (3) Syncope due to orthostatic hypotension Review of Systems All Other Systems: negative except mentioned in HPI Physical Exam General Appearance: WD/WN, no apparent distress Lines, tubes and drains: peripheral, central line HEENT: normocephalic, atraumatic Neck: non-tender, normal alignment Respiratory/Chest: chest wall non-tender, lungs clear Breasts: no masses Cardiovascular/Chest: normal peripheral pulses, normal rate Abdomen: normal bowel sounds, non tender Genitourinary/Rectal: normal genital exam Last 24 Hour Vital Signs Date Time Temp Pulse Resp B/P Pulse Ox O2 Delivery O2 Flow Rate FiO2 12/16/16 08:00 97.3 93 22 115/66 95 Room Air 12/16/16 06:19 91 12/16/16 06:15 97.7 95 20 135/82 95 Room Air 12/16/16 05:39 97.3 74 18 104/60 99 Room Air 15.0 12/16/16 05:22 97.3 74 18 104/60 99 Room Air 12/16/16 03:30 97.3 91 20 16/67 99 Room Air 12/16/16 03:30 91 20 Room Air 12/16/16 03:10 97.3 106 20 120/71 98 Non-Rebreather 15.0 Intake and Output 12/15/16 12/16/16 19:00 07:00 Intake Total 0 ml Balance 0 ml Intake Oral 0 ml Laboratory Tests Test 12/16/16 03:10 White Blood Count 10.1 K/UL (4.8-10.8) Red Blood Count 4.67 M/UL (4.70-6.10) L Hemoglobin 14.1 G/DL (14.2-18.0) L Hematocrit 42.2 % (42.0-52.0) Mean Corpuscular Volume 90 FL (80-99) Mean Corpuscular Hemoglobin 30.2 PG (27.0-31.0) Mean Corpuscular Hemoglobin Concent 33.5 G/DL (32.0-36.0) Red Cell Distribution Width 12.9 % (11.6-14.8) Platelet Count 271 K/UL (150-450) Mean Platelet Volume 7.0 FL (6.5-10.1) Neutrophils (%) (Auto) 51.5 % (45.0-75.0) Lymphocytes (%) (Auto) 36.8 % (20.0-45.0) Monocytes (%) (Auto) 8.3 % (1.0-10.0) Eosinophils (%) (Auto) 2.2 % (0.0-3.0) Basophils (%) (Auto) 1.3 % (0.0-2.0) Sodium Level 138 mEQ/L (135-145) Potassium Level 3.3 mEQ/L (3.4-4.9) L Chloride Level 95 mEQ/L (98-107) L Carbon Dioxide Level 23 mEQ/L (20-30) Anion Gap 20 (5-15) H Blood Urea Nitrogen 17 mg/dL (7-23) Creatinine 0.8 mg/dL (0.7-1.2) Estimat Glomerular Filtration Rate > 60 mL/min (>60) Glucose Level 235 mg/dL (74-106) H Calcium Level 9.1 mg/dL (8.6-10.2) Phenytoin (Dilantin) Level 12.9 ug/mL (10-20) Height (Feet): 5 Height (Inches): 5.00 Weight (Pounds): 150 Medications Current Medications Medications (Trade) Dose Ordered Sig/Radha Route PRN Reason Start Time Stop Time Status Last Admin Dose Admin Acetaminophen (Tylenol) 650 mg Q4H PRN ORAL fever 12/16/16 08:00 01/15/17 07:59 Al Hydroxide/Mg Hydroxide (Mylanta II) 30 ml Q6H PRN ORAL dyspepsia 12/16/16 08:00 01/15/17 07:59 Atorvastatin Calcium (Lipitor) 40 mg BEDTIME ORAL 12/16/16 21:00 01/15/17 20:59 Dextrose (Dextrose 50%) STAT PRN IV Hypoglycemia 12/16/16 08:00 01/15/17 07:59 Heparin Sodium (Porcine) (Heparin 5000 units/ml) 5,000 units EVERY 12 HOURS SUBQ 12/16/16 09:00 01/15/17 08:59 12/16/16 08:55 Levetiracetam (Keppra) 1,000 mg EVERY 12 HOURS ORAL 12/16/16 09:00 01/15/17 08:59 12/16/16 08:54 Lorazepam (Ativan 2mg/ml 1ml) 2 mg Q1H PRN IV seizures 12/16/16 08:00 12/23/16 07:59 Morphine Sulfate (Morphine Sulfate) 1 mg Q4H PRN IVP For Pain 12/16/16 08:00 12/23/16 07:59 Ondansetron HCl (Zofran) 4 mg Q6H PRN IVP Nausea & Vomiting 12/16/16 08:00 01/15/17 07:59 Phenytoin (Dilantin) 200 mg BID ORAL 12/16/16 09:00 01/15/17 08:59 12/16/16 08:54 Polyethylene Glycol (Miralax) 17 gm HSPRN PRN ORAL Constipation 12/16/16 08:00 01/15/17 07:59 Zolpidem Tartrate (Ambien) 5 mg HSPRN PRN ORAL Insomnia 12/16/16 08:00 01/15/17 07:59 Assessment/Plan Problem List: (1) Uncontrolled seizures ICD Codes: R56.9 - Unspecified convulsions SNOMED: 70424861 (2) Encephalopathy acute ICD Codes: G93.40 - Encephalopathy, unspecified SNOMED: 4920278 (3) Status post stroke ICD Codes: Z86.73 - Personal history of transient ischemic attack (TIA), and cerebral infarction without residual deficits SNOMED: 874281591 (4) DM (diabetes mellitus) ICD Codes: E11.9 - Type 2 diabetes mellitus without complications SNOMED: 66028427 Assessment/Plan telemetry monitoring Neuro evaluation prn LUKE Arnold Dec 16, 2016 12:24
--- NOTE | 2016-12-16 18:44 | Cardiology Report ---
APPROVED REPORT EKG Measurement Heart [id number] ID [id number] Normal sinus rhythm with sinus arrhythmia Cannot rule out Anterior infarct, age undetermined Abnormal ECG
[2016-12-17] VITALS: BP 120/75
[2016-12-17 04:00] VITALS: BP 118/75
[2016-12-17 04:51] LABS: BASOPHILS % (AUTO) 1.2 % (0.0-2.0); EOSINOPHILS % (AUTO) 7.4 % (0.0-3.0); LYMPHOCYTES % (AUTO) 40.1 % (20.0-45.0); MEAN CORPUSCULAR HEMOGLOBIN 30.4 PG (27.0-31.0); MEAN CORPUSCULAR VOLUME 89 FL (80-99); MEAN PLATELET VOLUME 6.9 FL (6.5-10.1); MONOCYTES % (AUTO) 9.6 % (1.0-10.0); NEUTROPHILS % (AUTO) 41.7 % (45.0-75.0); PLATELET COUNT 243 K/UL (150-450); RED BLOOD COUNT 4.32 M/UL (4.70-6.10); RED CELL DISTRIBUTION WIDTH 12.2 % (11.6-14.8); WHITE BLOOD COUNT 5.9 K/UL (4.8-10.8)
[2016-12-17 05:35] LABS: ALANINE AMINOTRANSFERASE 21 U/L (3-41); ALBUMIN/GLOBULIN RATIO 0.8 (1.0-2.7); ANION GAP 14 (5-15); ASPARTATE AMINO TRANSFERASE 17 U/L (5-40); CALCIUM 9.1 mg/dL (8.6-10.2); CARBON DIOXIDE 26 mEQ/L (20-30); CHLORIDE 99 mEQ/L (98-107); CREATININE 0.7 mg/dL (0.7-1.2); GLOMERULAR FILTRATION RATE > 60 mL/min (>60); HEMOLYSIS 3; SODIUM 139 mEQ/L (135-145)
[2016-12-17 08:00] VITALS: BP 106/73
[2016-12-17] MEDS: Phenytoin 100mg cap ORAL SCH ×2 (09:03→17:51)
[2016-12-17] MEDS: Heparin 5000 units/ml inj SUBQ SCH ×2 (09:07→21:02)
[2016-12-17 12:00] VITALS: BP 119/77
--- NOTE | 2016-12-17 12:07 | Neurology Progress Note ---
Objective Physical Exam Last Vital Signs Date Time Temp Pulse Resp B/P Pulse Ox O2 Delivery O2 Flow Rate FiO2 12/17/16 08:00 80 12/17/16 08:00 97.0 20 106/73 94 Room Air 12/16/16 05:39 15.0 Laboratory Tests Test 12/17/16 03:20 White Blood Count 5.9 K/UL (4.8-10.8) Red Blood Count 4.32 M/UL (4.70-6.10) L Hemoglobin 13.1 G/DL (14.2-18.0) L Hematocrit 38.7 % (42.0-52.0) L Mean Corpuscular Volume 89 FL (80-99) Mean Corpuscular Hemoglobin 30.4 PG (27.0-31.0) Mean Corpuscular Hemoglobin Concent 34.0 G/DL (32.0-36.0) Red Cell Distribution Width 12.2 % (11.6-14.8) Platelet Count 243 K/UL (150-450) Mean Platelet Volume 6.9 FL (6.5-10.1) Neutrophils (%) (Auto) 41.7 % (45.0-75.0) L Lymphocytes (%) (Auto) 40.1 % (20.0-45.0) Monocytes (%) (Auto) 9.6 % (1.0-10.0) Eosinophils (%) (Auto) 7.4 % (0.0-3.0) H Basophils (%) (Auto) 1.2 % (0.0-2.0) Sodium Level 139 mEQ/L (135-145) Potassium Level 4.0 mEQ/L (3.4-4.9) Chloride Level 99 mEQ/L (98-107) Carbon Dioxide Level 26 mEQ/L (20-30) Anion Gap 14 (5-15) Blood Urea Nitrogen 12 mg/dL (7-23) Creatinine 0.7 mg/dL (0.7-1.2) Estimat Glomerular Filtration Rate > 60 mL/min (>60) Glucose Level 95 mg/dL (74-106) # Calcium Level 9.1 mg/dL (8.6-10.2) Total Bilirubin < 0.2 mg/dL (0.0-1.2) Aspartate Amino Transf (AST/SGOT) 17 U/L (5-40) Alanine Aminotransferase (ALT/SGPT) 21 U/L (3-41) Alkaline Phosphatase 168 U/L (40-129) H Total Protein 7.0 g/dL (6.6-8.7) Albumin 3.2 g/dL (3.5-5.2) L Globulin 3.8 g/dL Albumin/Globulin Ratio 0.8 (1.0-2.7) L Impression/Recommendations Problems: (1) chronic seizure disorder. breakthru activity (2) Uncontrolled seizures (3) s/p multiple strokes with dementia, spastic quadriparesis Recommendations #[id number] RACH IBARRA Dec 17, 2016 12:07
--- NOTE | 2016-12-17 12:50 | Pulmonology Progress Note ---
Assessment/Plan Problems: (1) Uncontrolled seizures (2) Encephalopathy acute (3) Status post stroke (4) DM (diabetes mellitus) Assessment/Plan neuro f/u adjust meds med/surg will dc home when pt doens't have seizures for 24 hours. Subjective ROS Limited/Unobtainable: No Constitutional: Reports: no symptoms HEENT: Repors: no symptoms Respiratory: Reports: no symptoms Allergies: Coded Allergies: No Known Allergies (Unverified , 01/07/16) Objective Last 24 Hour Vital Signs Date Time Temp Pulse Resp B/P Pulse Ox O2 Delivery O2 Flow Rate FiO2 12/17/16 08:00 80 12/17/16 08:00 97.0 80 20 106/73 94 Room Air 12/17/16 04:00 98.2 83 18 118/75 98 Room Air 12/17/16 03:48 83 12/17/16 00:00 98.0 95 18 120/75 97 Room Air 12/17/16 00:00 97 12/16/16 20:10 98.0 97 18 124/79 97 Room Air 12/16/16 20:00 100 12/16/16 16:38 100 12/16/16 16:00 98.2 98 18 115/75 95 Room Air Intake and Output 12/16/16 12/17/16 19:00 07:00 Intake Total 120 ml 300 ml Output Total 250 ml 1400 ml Balance -130 ml -1100 ml Intake Oral 120 ml 300 ml Output Urine Total 250 ml 1400 ml # Voids 1 General Appearance: WD/WN HEENT: normocephalic, atraumatic Respiratory/Chest: chest wall non-tender, lungs clear Cardiovascular: normal peripheral pulses, normal rate Abdomen: normal bowel sounds, soft, non tender Extremities: no cyanosis Skin: no lesions Laboratory Tests 12/17/16 03:20: White Blood Count 5.9, Red Blood Count 4.32L, Hemoglobin 13.1L, Hematocrit 38.7L , Mean Corpuscular Volume 89, Mean Corpuscular Hemoglobin 30.4, Mean Corpuscular Hemoglobin Concent 34.0, Red Cell Distribution Width 12.2, Platelet Count 243, Mean Platelet Volume 6.9, Neutrophils (%) (Auto) 41.7L, Lymphocytes ( %) (Auto) 40.1, Monocytes (%) (Auto) 9.6, Eosinophils (%) (Auto) 7.4H, Basophils (%) (Auto) 1.2, Sodium Level 139, Potassium Level 4.0, Chloride Level 99, Carbon Dioxide Level 26, Anion Gap 14, Blood Urea Nitrogen 12, Creatinine 0.7, Estimat Glomerular Filtration Rate > 60, Glucose Level 95#, Calcium Level 9.1, Total Bilirubin < 0.2, Aspartate Amino Transf (AST/SGOT) 17, Alanine Aminotransferase (ALT/SGPT) 21, Alkaline Phosphatase 168H, Total Protein 7.0, Albumin 3.2L, Globulin 3.8, Albumin/Globulin Ratio 0.8L Current Medications Medications (Trade) Dose Ordered Sig/Radha Route PRN Reason Start Time Stop Time Status Last Admin Dose Admin Acetaminophen (Tylenol) 650 mg Q4H PRN ORAL fever 12/16/16 08:00 01/15/17 07:59 Al Hydroxide/Mg Hydroxide (Mylanta II) 30 ml Q6H PRN ORAL dyspepsia 12/16/16 08:00 01/15/17 07:59 Atorvastatin Calcium (Lipitor) 40 mg BEDTIME ORAL 12/16/16 21:00 01/15/17 20:59 12/16/16 21:14 Clopidogrel Bisulfate (Plavix) 75 mg DAILY ORAL 12/17/16 13:00 01/16/17 12:59 12/17/16 12:34 Dextrose (Dextrose 50%) STAT PRN IV Hypoglycemia 12/16/16 08:00 01/15/17 07:59 Divalproex Sodium (Depakote ER) 500 mg EVERY 12 HOURS ORAL 12/17/16 13:00 01/16/17 12:59 12/17/16 12:34 Heparin Sodium (Porcine) (Heparin 5000 units/ml) 5,000 units EVERY 12 HOURS SUBQ 12/16/16 09:00 01/15/17 08:59 12/17/16 09:07 Levetiracetam (Keppra) 1,500 mg EVERY 12 HOURS ORAL 12/17/16 21:00 01/16/17 20:59 Lorazepam (Ativan 2mg/ml 1ml) 2 mg Q1H PRN IV seizures 12/16/16 08:00 12/23/16 07:59 Morphine Sulfate (Morphine Sulfate) 1 mg Q4H PRN IVP For Pain 12/16/16 08:00 12/23/16 07:59 Ondansetron HCl (Zofran) 4 mg Q6H PRN IVP Nausea & Vomiting 12/16/16 08:00 01/15/17 07:59 Phenytoin (Dilantin) 200 mg BID ORAL 12/16/16 09:00 01/15/17 08:59 12/17/16 09:03 Polyethylene Glycol (Miralax) 17 gm HSPRN PRN ORAL Constipation 12/16/16 08:00 01/15/17 07:59 Zolpidem Tartrate (Ambien) 5 mg HSPRN PRN ORAL Insomnia 12/16/16 08:00 01/15/17 07:59 LUKE ANDINO Dec 17, 2016 12:50
[2016-12-17] MEDS ORDERED: Depakote ER 500mg tab ORAL SCH (13:00)
[2016-12-17 16:00] VITALS: BP 111/65
--- NOTE | 2016-12-17 19:59 | Consultation ---
DATE OF CONSULTATION: 12/17/2016 NEUROLOGICAL CONSULTATION REQUESTING PHYSICIAN: Alli Chase M.D. HISTORY OF PRESENT ILLNESS: This is a 61-year-old man with a history of chronic seizure disorder, maintained on Keppra and Dilantin who presented with breakthrough episodes of generalized clonic-tonic seizures initially witnessed at home and then witnessed by paramedics. The patient was treated with Versed and brought to the emergency room. He was obtunded and felt to be in postictal state. His initial vital signs were stable, although pulse was 106 and respiration 20. Laboratory work was obtained revealing normal CBC studies. Chemistry panel unremarkable except potassium 3.3, anion gap of 20 and blood sugar 245. Toxicology panel included phenytoin level at 12.9. The patient had a EKG normal with normal sinus arrhythmia. Following admission until present, there was no further seizure or paroxysmal activities noted. PAST MEDICAL HISTORY: The patient is well known to me from previous assessment, most recently in October 2016. The patient initially presented in November with evidence of multiple strokes and right hemiparesis. In the following, he continued to progress, developed a quadriparesis, continued seizure activities and MRI of the brain was obtained. This revealed the extensive ischemic cerebrovascular disease with multiple old lacunar strokes. The patient presented with evidence of progressive dementia. Difficulty ambulation. The patient's diagnostic studies included coagulation panel, lipid panel, ZEE, and sedimentation rate was reported as unremarkable. The patient has a long history of history of hypertension and history of hyperlipidemia. The patient has no evidence of diabetes. MEDICATIONS: His treatment prior to admission included aspirin, atorvastatin, diazepam, omeprazole, Keppra 1500 mg b.i.d. and phenytoin 200 mg at bedtime. ALLERGIES: No allergies reported. SOCIAL HISTORY: lives with his and children. No evidence of alcohol drug abuse. Nonsmoker. Ambulation with use of walker. PHYSICAL EXAMINATION: GENERAL: The patient is a well-developed and well-nourished man, not in acute distress, lying comfortably in bed. VITAL SIGNS: Stable. Blood pressure 106/73 and temperature 97.0 degrees. HEENT: Head, normocephalic. No evidence of trauma. Eyes, ears, and throat are clear. NECK: Supple. No meningeal signs. MUSCULOSKELETAL: Unremarkable except diffuse rigidity. Peripheral pulses 1+ symmetric. MENTAL STATUS: The patient is alert, has a good eye contact. Very limited verbal output in [place], able to follow few simple commands, unable to give his age, place and time. CRANIAL NERVES II: Pupils, both responding to light and accommodation. Extraocular movement intact. No nystagmus. CRANIAL NERVES V: Normal corneal responses. CRANIAL NERVES VII: Droop right nasolabial fold. CRANIAL NERVES VIII: Grossly normal hearing. CRANIAL NERVES IX THROUGH XII: Tongue is in midline. Symmetric palate elevation. MOTOR EXAMINATION: Revealed a diffuse rigidity to both upper and lower extremities, somewhat more pronounced on the right. Deep tendon reflexes 4+ bilaterally on the right. Positive Babinski on the right. SENSORY EXAMINATION: Withdrawing to pin stimulation both upper and lower extremities. Gait not tested, but reported able to ambulate with a walker. IMPRESSION: 1. Chronic seizure disorder, with breakthrough seizure episode. 2. Extensive ischemic cerebrovascular disease presenting with a spastic quadriparesis, expressive aphasia, abnormal gait, and had vascular dementia. 3. Hypertension. 4. Hyperlipidemia. RECOMMENDATION: The patient continue with aspirin and Plavix. Continue with atorvastatin. Continue with Keppra increased to 1500 mg and phenytoin 200 mg b.i.d. Additional anticonvulsant may be needed for better control of seizure activities. We will start on Depakote 500 mg b.i.d., recheck blood level and liver function. Thank you for allowing me to see this interesting patient in neurological consultation. Nima Mejia M.D. DR: TANG JOB#: [id number] CC:
[2016-12-17 20:00] VITALS: BP 114/71
[2016-12-17] MEDS ORDERED: Mylanta II UD 30ml ORAL PRN (20:00)
[2016-12-17] MEDS ORDERED: Morphine Sulfate 2mg/ml Inj IVP PRN (20:00)
[2016-12-17] MEDS ORDERED: LORazepam Inj 2mg/ml 1ml IV PRN (20:00)
[2016-12-17] MEDS ORDERED: Miralax 17gm pkt ORAL PRN (21:00)
[2016-12-17] MEDS ORDERED: Zolpidem 5mg tab ORAL PRN (21:00)
[2016-12-17] MEDS: Depakote ER 500mg tab ORAL SCH (21:01)
[2016-12-18] VITALS: BP 104/69
[2016-12-18 04:00] VITALS: BP 138/77
[2016-12-18] MEDS: Depakote ER 500mg tab ORAL SCH (07:55)
[2016-12-18] MEDS: Heparin 5000 units/ml inj SUBQ SCH (08:00)
[2016-12-18 08:15] VITALS: BP 124/74
[2016-12-18 11:38] VITALS: BP 112/61
--- NOTE | 2016-12-18 12:09 | Neurology Progress Note ---
Interim History Interim History ROS Limited/Unobtainable: Yes Complaints: none denies sz, CAMERON dizziness. Events: no sz noted more coherent Objective Physical Exam Last Vital Signs Date Time Temp Pulse Resp B/P Pulse Ox O2 Delivery O2 Flow Rate FiO2 12/18/16 11:38 97.9 98 18 112/61 97 Room Air 12/16/16 05:39 15.0 Laboratory Tests Test 12/18/16 06:50 Phenytoin (Dilantin) Level 10.8 ug/mL (10-20) General: well developed, well nourished, no acute distress Head: normocophalic, atraumatic Neck: no rigidity Neurologic Exam Mental Status: awake, alert, other - ox2 limited verbal output Speech: no dysarthia Language: other - expr aphasia Cranial Nerve II: fundus normal, no papilledema Cranial Nerves III, IV, : PERRLA, EOMI, pupils Cranial Nerve V: normal facial sensations, temporales function normal, masseters function normal, pterygoids function normal Cranial Nerve VII: other - mild asymmetry Cranial Nerve VIII: normal hearing, no nystagmus Cranial Nerve IX: normal palate elevation, gag response Cranial Nerve X: no voice hoarseness Cranial Nerve XI: SCM symmetric, trapezii function normal Cranial Nerve XII: tongue midline, no tongue atrophy/fasciculations Motor System: no involuntary movement, no muscle wasting, other - generalised rigidity R>L Sensory: normal pinprick Coordination: other Deep Tendon Reflexes: 0 ankle (L), 0 ankle (R), 0 bicep (L), 0 bicep (R), 0 brachioradialis (L), 0 brachioradialis (R), 0 knee (L), 0 knee (R), 0 tricep (L) , 0 tricep (R) Reflexes: extensor plantar (R), mute plantar (L) Impression/Recommendations Problems: (1) chronic seizure disorder. breakthru activity (2) Uncontrolled seizures (3) s/p multiple strokes with dementia, spastic quadriparesis Status: stable Recommendations #[id number] bid dilantin 200mg bid neuro stable d/w staff RACH IBARRA Dec 18, 2016 12:09
[2016-12-18 16:00] VITALS: BP 107/68
[2016-12-18] MEDS ORDERED: KEPPRA500 M3 ORAL (17:03)
[2016-12-18] MEDS ORDERED: DILANTIN100 MG ORAL (17:03)
[2016-12-18] MEDS ORDERED: DIVALPROEX SOD500 M2 ORAL (17:03)
[2016-12-18] MEDS ORDERED: NS 275ml ONE (18:49)
[2016-12-18] MEDS ORDERED: Phenytoin 100mg cap ORAL SCH (21:00)
--- NOTE | 2016-12-19 20:18 | Discharge Summary ---
Discharge Summary Hospital Course Date of Admission Dec 16, 2016 at 05:07 Date of Discharge Dec 18, 2016 at 20:30 Admitting Diagnosis Seizure HPI Gavin Kenyon is a 61 year old male who was admitted on Dec 16, 2016 at 05:07 for seizure Hospital Course [id number] Discharge Discharge Disposition Patient was discharged to Home (01) Discharge Diagnoses: Molly Polo NP Dec 19, 2016 20:18
--- NOTE | 2016-12-20 02:28 | Discharge Summary 2 SIG ---
DATE OF ADMISSION: 12/16/2016 DATE OF DISCHARGE: 12/18/2016 MSW: Nima Mejia M.D. BRIEF HOSPITAL COURSE: The patient is a 61-year-old male with history of CVA and seizure, presented to ED with tonic-clonic seizure activity lasting for five minutes. He received Versed IM by paramedics. On arrival to ED, he was obtunded and was admitted to [facility] for neurologic monitoring and evaluation. Dr. Mejia was consulted. Toxicology panel showed phenytoin level at 12.9. He was given aspirin and Plavix with atorvastatin. Keppra was increased to 1500 mg, phenytoin 200 mg b.i.d., and Depakote 500 mg twice a day. There has been no seizure activity noted during inpatient stay. He underwent physical therapy and occupational therapy evaluation, and he was eventually discharged home. FINAL DIAGNOSES: 1. Acute metabolic encephalopathy. 2. Chronic seizure disorder with breakthrough activity. 3. Diabetes mellitus. 4. Spastic quadriparesis. 5. Old cerebrovascular accident. 6. Uncontrolled seizures. Alli Chase M.D. I have been assigned to dictate discharge summary on this account and I was not involved in the patient's management. Molly Polo N.P. DR: PETER JOB#: [id number] CC: REJI
== END 2016-12-18 20:30 | disposition home or self-care (01) | DRG 53 ==
LOC: EDBD 03:13 → EMR 05:06 → 2W 05:07 → EDBEDREQ 05:32 → 2W 06:09 → 4E 12-17 17:10
DX: G40.909 Epilepsy, unspecified, not intractable, without status epilepticus (principal); G93.41 Metabolic encephalopathy; G82.50 Quadriplegia, unspecified; E11.8 Type 2 diabetes mellitus with unspecified complications; I10 Essential (primary) hypertension; E78.5 Hyperlipidemia, unspecified; F03.90 Unspecified dementia, unspecified severity, without behavioral disturbance, psychotic disturbance, mood disturbance, and anxiety; I69.361 Other paralytic syndrome following cerebral infarction affecting right dominant side
CPT/HCPCS: 36415; 80048; 80053; 80185; 80299; 85025; 93005

== ENCOUNTER 2016-12-27 19:53 | Inpatient (IN) | payer MEDICAID ==
[~2016-12-27] VITALS: Ht 160 cm; Wt 64.4 kg
[~2016-12-27 19:53] MED LIST changes: +DIVALPROEX SOD500 M2 ORAL
[2016-12-27] MEDS ORDERED: LORazepam Inj 2mg/ml 1ml IV ONE (20:00)
[2016-12-27 20:06] VITALS: BP 138/89
[2016-12-27 21:02] LABS: BASOPHILS % (AUTO) 1.4 % (0.0-2.0); EOSINOPHILS % (AUTO) 3.1 % (0.0-3.0); LYMPHOCYTES % (AUTO) 31.6 % (20.0-45.0); MEAN CORPUSCULAR HEMOGLOBIN 31.3 PG (27.0-31.0); MEAN CORPUSCULAR HGB CONC 34.7 G/DL (32.0-36.0); MEAN CORPUSCULAR VOLUME 90 FL (80-99); MEAN PLATELET VOLUME 6.6 FL (6.5-10.1); MONOCYTES % (AUTO) 11.1 % (1.0-10.0); NEUTROPHILS % (AUTO) 52.7 % (45.0-75.0); PLATELET COUNT 249 K/UL (150-450); RED BLOOD COUNT 4.31 M/UL (4.70-6.10); RED CELL DISTRIBUTION WIDTH 12.6 % (11.6-14.8); WHITE BLOOD COUNT 8.5 K/UL (4.8-10.8)
[2016-12-27 21:22] LABS: ALANINE AMINOTRANSFERASE 31 U/L (3-41); ALBUMIN/GLOBULIN RATIO 0.9 (1.0-2.7); ANION GAP 15 (5-15); ASPARTATE AMINO TRANSFERASE 17 U/L (5-40); CALCIUM 9.3 mg/dL (8.6-10.2); CARBON DIOXIDE 26 mEQ/L (20-30); CHLORIDE 94 mEQ/L (98-107); CREATININE 0.9 mg/dL (0.7-1.2); GLOMERULAR FILTRATION RATE > 60 mL/min (>60); HEMOLYSIS 3; SODIUM 135 mEQ/L (135-145); TOTAL PROTEIN 7.9 g/dL (6.6-8.7)
[2016-12-27] MEDS ORDERED: Phenytoin 500 MG in NS 110 ML IVPB ONE (22:00)
[2016-12-27] MEDS ORDERED: levETIRAcetam 500 MG in D5W 110 ML IVPB ONE (22:00)
[2016-12-27] MEDS ORDERED: levETIRAcetam 500mg vial IV ONE (22:09)
[2016-12-27 22:20] VITALS: BP 116/69
[2016-12-27] MEDS ORDERED: Phenytoin 250mg/5ml vial ONE (22:36)
[2016-12-27] MEDS ORDERED: NAPROXEN375 M2 ORAL (23:18)
[2016-12-27] MEDS ORDERED: LIPITOR40 MG ORAL (23:18)
--- NOTE | 2016-12-27 23:29 | Emergency Room Report ---
History of Present Illness General Chief Complaint: Seizure Source: EMS Present Illness HPI 61-year-old male presents ED for evaluation. Son at bedside states that patient had a seizure today at home. Patient has history of seizures-takes Keppra and Dilantin. States he is compliant with his medications. Questionable fall and head trauma. Upon arrival patient has dementia and is unable to provide any additional history at this time. No reported fevers or chills. No signs of distress. Patient son at bedside states that patient has been admitted recently for uncontrollable seizures. No other aggravating relieving factors. Denies any other associated symptoms Allergies: Coded Allergies: No Known Allergies (Unverified , 01/07/16) Patient History Past Medical History: HTN, dementia, seizures Past Surgical History: none Pertinent Family History: none Social History: Denies: alcohol use, drug use, smoking Immunizations: UTD Reviewed Nursing Documentation: PMH: Agreed, PSxH: Agreed Nursing Documentation-PMH Past Medical History: No History, Except For Hx Cardiac Problems: Yes Hx Hypertension: Yes Hx Diabetes: No - patient does NOT have DM Hx Cancer: No Hx Gastrointestinal Problems: No Hx Neurological Problems: Yes - Altzhaimers, Dementia Hx Cerebrovascular Accident: Yes Hx Dementia: Yes Hx Alzheimer's Disease: Yes Hx Seizures: Yes Hx Weakness: Yes Review of Systems All Other Systems: negative except mentioned in HPI Physical Exam Vital Signs Date Time Temp Pulse Resp B/P Pulse Ox O2 Delivery O2 Flow Rate FiO2 12/27/16 19:53 98.1 112 18 138/89 98 Room Air Sp02 EP Interpretation: reviewed, normal General Appearance: no apparent distress, non-toxic, other - dementia Head: normocephalic, atraumatic Eyes: bilateral eye PERRL, bilateral eye normal inspection ENT: hearing grossly normal, normal pharynx, no angioedema, normal voice Neck: full range of motion, supple/symm/no masses Respiratory: chest non-tender, lungs clear, normal breath sounds, speaking full sentences Cardiovascular #1: regular rate, rhythm, no edema Cardiovascular #2: 2+ carotid (R), 2+ carotid (L), 2+ radial (R), 2+ radial (L) , 2+ dorsalis pedis (R), 2+ dorsalis pedis (L) Gastrointestinal: normal bowel sounds, non tender, soft, non-distended, no guarding, no rebound Rectal: deferred Genitourinary: normal inspection, no CVA tenderness Musculoskeletal: back normal, gait/station normal, normal range of motion, non- tender Neurologic: other - dementia Psychiatric: other - dementiia Reflexes: 3+ bicep (R), 3+ bicep (L), 3+ tricep (R), 3+ tricep (L), 3+ knee (R) , 3+ knee (L) Skin: normal color, no rash, warm/dry, well hydrated Lymphatic: no adenopathy Medical Decision Making Diagnostic Impression: Primary Impression: chronic seizure disorder. breakthru activity ER Course Hospital Course 61-year-old M presents to ED status post seizure. Differential diagnosis includes- breakthrough seizure, alcohol abuse, noncompliance with medication Clinical course Patient placed on stretcher. Patient having seizure in ED. Given Ativan IV. Initial history and physical I ordered labs, IV fluids, CT brain Labs-electrolytes okay, leukocytosis noted, hemoglobin/hematocrit stable. dilantin level slightly low EKG - NSR CT Brain ok Given loading dose of Dilantin. given keppra IV. Given that patient is still altered I believe she should be admitted. Case discussed with Dr. Chase and he agreed to accept the patient to his service for further care and support. i. I feel this is a highly complex case requiring extensive working including EKG/Rhythm strip, Xray/CT/US, Blood/urine lab work, repeat exams while in ED, and administration of strong opiates/narcotics for pain control, admission to hospital or close patient follow up. Diagnosis - chronic seizure disorder, breakthrough activity admitted to telemetry in serious condition Labs Test 12/27/16 20:48 White Blood Count 8.5 K/UL (4.8-10.8) Red Blood Count 4.31 M/UL (4.70-6.10) Hemoglobin 13.5 G/DL (14.2-18.0) Hematocrit 38.9 % (42.0-52.0) Mean Corpuscular Volume 90 FL (80-99) Mean Corpuscular Hemoglobin 31.3 PG (27.0-31.0) Mean Corpuscular Hemoglobin Concent 34.7 G/DL (32.0-36.0) Red Cell Distribution Width 12.6 % (11.6-14.8) Platelet Count 249 K/UL (150-450) Mean Platelet Volume 6.6 FL (6.5-10.1) Neutrophils (%) (Auto) 52.7 % (45.0-75.0) Lymphocytes (%) (Auto) 31.6 % (20.0-45.0) Monocytes (%) (Auto) 11.1 % (1.0-10.0) Eosinophils (%) (Auto) 3.1 % (0.0-3.0) Basophils (%) (Auto) 1.4 % (0.0-2.0) Sodium Level 135 mEQ/L (135-145) Potassium Level 4.0 mEQ/L (3.4-4.9) Chloride Level 94 mEQ/L (98-107) Carbon Dioxide Level 26 mEQ/L (20-30) Anion Gap 15 (5-15) Blood Urea Nitrogen 17 mg/dL (7-23) Creatinine 0.9 mg/dL (0.7-1.2) Estimat Glomerular Filtration Rate > 60 mL/min (>60) Glucose Level 121 mg/dL (74-106) Calcium Level 9.3 mg/dL (8.6-10.2) Total Bilirubin < 0.2 mg/dL (0.0-1.2) Aspartate Amino Transf (AST/SGOT) 17 U/L (5-40) Alanine Aminotransferase (ALT/SGPT) 31 U/L (3-41) Alkaline Phosphatase 190 U/L (40-129) Total Protein 7.9 g/dL (6.6-8.7) Albumin 3.9 g/dL (3.5-5.2) Globulin 4.0 g/dL Albumin/Globulin Ratio 0.9 (1.0-2.7) Phenytoin (Dilantin) Level 7.9 ug/mL (10-20) EKG Diagnostic Results Rate: normal Rhythm: NSR ST Segments: no acute changes ASA given to the pt in ED: No Rhythm Strip Diag. Results EP Interpretation: yes Rhythm: NSR, no PVC's, no ectopy CT/MRI/US Diagnostic Results CT/MRI/US Diagnostic Results : Imaging Test Ordered: CT head Impression no acute process Last Vital Signs Date Time Temp Pulse Resp B/P Pulse Ox O2 Delivery O2 Flow Rate FiO2 12/27/16 22:20 98.1 86 18 116/69 98 Room Air Status: improved Disposition: ADMITTED INPATIENT Condition: Serious Referrals: [facility],REFERRING (PCP) OZ DOMINGUEZ M.D. Dec 27, 2016 23:29
[2016-12-27] MEDS ORDERED: Mylanta II UD 30ml ORAL PRN (23:30)
[2016-12-27] MEDS ORDERED: Morphine Sulfate 2mg/ml Inj IVP PRN (23:30)
[2016-12-27] MEDS ORDERED: Zolpidem 5mg tab ORAL PRN (23:30)
[2016-12-27] MEDS ORDERED: Miralax 17gm pkt ORAL PRN (23:30)
[2016-12-27] MEDS ORDERED: LORazepam Inj 2mg/ml 1ml IV PRN (23:30)
[2016-12-28] VITALS (7 sets, daily range): BP systolic 105–121; BP diastolic 63–84
--- NOTE | 2016-12-28 08:47 | Diagnostic Imaging Report ---
Indications: Seizure Technique: Spiral acquisitions obtained through the brain. Angled axial and coronal 5 x 5 mm slices were reconstructed. Total dose length product 1376 mGycm. CTDI vol(s) 7 mGy Comparison: 03/20/2016 Findings: Again demonstrated is age-related enlargement of ventricles and extra-axial CSF spaces and fairly extensive periventricular deep white matter chronic ischemic change. There is a calcification in the right parietal cortex. Old lacunar infarcts are seen in the left basal ganglia as well as within the allyn to the right of midline. Previously demonstrated right maxillary sinus opacification is not are evident, there is residual periosteal thickening. The calvarium is intact. There is minimal ethmoid sinus disease currently evident. No acute hemorrhage or edema. No mass effect or midline shift Impression: Chronic and age-related changes, as described Old lacunar infarcts Evidence of old neurocysticercosis Negative for acute intracranial bleed, mass effect, or significant or change since 03/20/2016 Minimal sinus disease, improved since 03/20/2016 This agrees with the preliminary interpretation provided overnight by Dr. Sanchez The CT scanner at [facility] is accredited by the [employer] and the scans are performed using protocols designed to limit radiation exposure to as low as reasonably achievable to attain images of sufficient resolution adequate for diagnostic evaluation.
[2016-12-28] MEDS ORDERED: Phenytoin 100mg cap ORAL SCH ×2 (09:00→18:00)
[2016-12-28] MEDS ORDERED: Aspirin EC 81mg tab ORAL SCH (09:00)
[2016-12-28] MEDS ORDERED: Heparin 5000 units/ml inj SUBQ SCH (09:00)
[2016-12-28] MEDS ORDERED: Depakote ER 500mg tab ORAL SCH ×3 (09:00→21:00)
[2016-12-28 09:53] LABS: BASOPHILS % (AUTO) 1.4 % (0.0-2.0); EOSINOPHILS % (AUTO) 1.6 % (0.0-3.0); MEAN CORPUSCULAR HEMOGLOBIN 30.3 PG (27.0-31.0); MEAN CORPUSCULAR HGB CONC 33.7 G/DL (32.0-36.0); MEAN CORPUSCULAR VOLUME 90 FL (80-99); MEAN PLATELET VOLUME 6.9 FL (6.5-10.1); MONOCYTES % (AUTO) 7.6 % (1.0-10.0); NEUTROPHILS % (AUTO) 67.3 % (45.0-75.0); PLATELET COUNT 267 K/UL (150-450); RED BLOOD COUNT 4.56 M/UL (4.70-6.10); RED CELL DISTRIBUTION WIDTH 12.5 % (11.6-14.8); WHITE BLOOD COUNT 7.2 K/UL (4.8-10.8)
[2016-12-28 12:00] LABS: ALANINE AMINOTRANSFERASE 29 U/L (3-41); ALBUMIN/GLOBULIN RATIO 1.1 (1.0-2.7); ANION GAP 19 (5-15); ASPARTATE AMINO TRANSFERASE 22 U/L (5-40); CALCIUM 9.2 mg/dL (8.6-10.2); CARBON DIOXIDE 24 mEQ/L (20-30); CHLORIDE 95 mEQ/L (98-107); CREATININE 0.7 mg/dL (0.7-1.2); GLOMERULAR FILTRATION RATE > 60 mL/min (>60); HEMOLYSIS 153; POTASSIUM 4.8 mEQ/L (3.4-4.9); SODIUM 138 mEQ/L (135-145); TOTAL PROTEIN 7.6 g/dL (6.6-8.7)
--- NOTE | 2016-12-28 12:34 | Diagnostic Imaging Report ---
Indication: Status post nasogastric tube placement Technique: Supine view of the abdomen Comparison: none Findings: Bowel gas pattern is unremarkable. No unusual masses or calcifications. Is a nasogastric tube, tip projected at the level gastric antrum. Impression: Satisfactory nasogastric intubation No acute process
--- NOTE | 2016-12-28 12:58 | History and Physical ---
History of Present Illness General Date patient seen: Dec 28, 2016 Reason for Hospitalization: Seizure Present Illness HPI 61-year-old male with PMHx of seizures multi-infarct CVA,presented to [facility] with CC of seizures today at home. Pt is unable to provide any additional history. He has multiple admissions in the past for the same reason. Allergies: Coded Allergies: No Known Allergies (Unverified , 01/07/16) Medication History Scheduled Aspirin* (Aspir 81*), 81 MG ORAL DAILY, (Reported) Atorvastatin Calcium* (Atorvastatin Calcium*), 40 MG ORAL BEDTIME, (Reported) Atorvastatin Calcium* (Lipitor*), 40 MG ORAL BEDTIME, (Reported) Calcium Carbonate/Vitamin D3 (Calcium 600 + Vit D 400 Tablet), 1 EACH PO DAILY, (Reported) Diazepam (Diastat Acudial), 1 EACH RC ONCE Divalproex Sodium (Divalproex Sodium Er), 500 MG ORAL EVERY 12 HOURS Donepezil Hcl (Aricept), 5 MG ORAL DAILY, (Reported) Levetiracetam (Keppra), 500 MG ORAL EVERY 12 HOURS, (Reported) Levetiracetam (Levetiracetam), 1,000 MG ORAL EVERY 12 HOURS Levetiracetam (Levetiracetam), 1,500 MG ORAL EVERY 12 HOURS Levetiracetam* (Levetiracetam*), 500 MG ORAL TWICE A DAY, (Reported) Multivitamins* (Multivitamins*), 1 TAB ORAL DAILY, (Reported) Naproxen* (Naproxen*), 220 MG ORAL TWICE A DAY, (Reported) Phenytoin Sodium Extended* (Dilantin*), 300 MG ORAL BEDTIME, (Reported) Phenytoin Sodium Extended* (Dilantin*), 200 MG ORAL BID Phenytoin Sodium Extended* (Dilantin*), 200 MG ORAL Q12H Sertraline Hcl (Sertraline Hcl), 50 MG PO DAILY, (Reported) [Levetiracetam], 500 MG ORAL Q12HR Patient History Healthcare decision maker Resuscitation status Full Code Advanced Directive on File No Past Medical/Surgical History Past Medical/Surgical History: (1) Uncontrolled seizures (2) s/p multiple strokes with dementia, spastic quadriparesis (3) Status post stroke Review of Systems All Other Systems: negative except mentioned in HPI Physical Exam General Appearance: WD/WN Lines, tubes and drains: peripheral, central line HEENT: normocephalic, atraumatic Neck: non-tender, normal alignment Respiratory/Chest: chest wall non-tender, lungs clear Cardiovascular/Chest: normal peripheral pulses, normal rate Last 24 Hour Vital Signs Date Time Temp Pulse Resp B/P Pulse Ox O2 Delivery O2 Flow Rate FiO2 12/28/16 08:00 97.7 94 20 119/63 Room Air 12/28/16 04:00 97.0 85 18 121/75 97 Room Air 12/28/16 04:00 90 12/28/16 02:15 96.8 87 18 119/77 97 Room Air 12/28/16 02:13 98.1 81 16 118/67 95 Room Air 12/28/16 01:46 81 16 118/67 95 Room Air 12/28/16 00:03 88 18 105/73 98 Room Air 12/27/16 22:20 98.1 86 18 116/69 98 Room Air 12/27/16 20:06 112 18 Room Air 12/27/16 20:06 98.1 100 18 138/89 98 Room Air 12/27/16 19:53 98.1 112 18 138/89 98 Room Air Intake and Output 12/27/16 12/28/16 19:00 07:00 Intake Total 735 ml Balance 735 ml Intake IV Total 735 ml # Voids 1 Laboratory Tests Test 12/27/16 20:48 12/28/16 08:55 12/28/16 11:00 White Blood Count 8.5 K/UL (4.8-10.8) 7.2 K/UL (4.8-10.8) Red Blood Count 4.31 M/UL (4.70-6.10) L 4.56 M/UL (4.70-6.10) L Hemoglobin 13.5 G/DL (14.2-18.0) L 13.8 G/DL (14.2-18.0) L Hematocrit 38.9 % (42.0-52.0) L 41.0 % (42.0-52.0) L Mean Corpuscular Volume 90 FL (80-99) 90 FL (80-99) Mean Corpuscular Hemoglobin 31.3 PG (27.0-31.0) H 30.3 PG (27.0-31.0) Mean Corpuscular Hemoglobin Concent 34.7 G/DL (32.0-36.0) 33.7 G/DL (32.0-36.0) Red Cell Distribution Width 12.6 % (11.6-14.8) 12.5 % (11.6-14.8) Platelet Count 249 K/UL (150-450) 267 K/UL (150-450) Mean Platelet Volume 6.6 FL (6.5-10.1) 6.9 FL (6.5-10.1) Neutrophils (%) (Auto) 52.7 % (45.0-75.0) 67.3 % (45.0-75.0) Lymphocytes (%) (Auto) 31.6 % (20.0-45.0) 22.0 % (20.0-45.0) Monocytes (%) (Auto) 11.1 % (1.0-10.0) H 7.6 % (1.0-10.0) Eosinophils (%) (Auto) 3.1 % (0.0-3.0) H 1.6 % (0.0-3.0) Basophils (%) (Auto) 1.4 % (0.0-2.0) 1.4 % (0.0-2.0) Sodium Level 135 mEQ/L (135-145) 138 mEQ/L (135-145) Potassium Level 4.0 mEQ/L (3.4-4.9) 4.8 mEQ/L (3.4-4.9) Chloride Level 94 mEQ/L (98-107) L 95 mEQ/L (98-107) L Carbon Dioxide Level 26 mEQ/L (20-30) 24 mEQ/L (20-30) Anion Gap 15 (5-15) 19 (5-15) H Blood Urea Nitrogen 17 mg/dL (7-23) 12 mg/dL (7-23) Creatinine 0.9 mg/dL (0.7-1.2) 0.7 mg/dL (0.7-1.2) Estimat Glomerular Filtration Rate > 60 mL/min (>60) > 60 mL/min (>60) Glucose Level 121 mg/dL (74-106) H 101 mg/dL (74-106) Calcium Level 9.3 mg/dL (8.6-10.2) 9.2 mg/dL (8.6-10.2) Total Bilirubin < 0.2 mg/dL (0.0-1.2) < 0.2 mg/dL (0.0-1.2) Aspartate Amino Transf (AST/SGOT) 17 U/L (5-40) 22 U/L (5-40) Alanine Aminotransferase (ALT/SGPT) 31 U/L (3-41) 29 U/L (3-41) Alkaline Phosphatase 190 U/L (40-129) H 196 U/L (40-129) H Total Protein 7.9 g/dL (6.6-8.7) 7.6 g/dL (6.6-8.7) Albumin 3.9 g/dL (3.5-5.2) 4.0 g/dL (3.5-5.2) Globulin 4.0 g/dL 3.6 g/dL Albumin/Globulin Ratio 0.9 (1.0-2.7) L 1.1 (1.0-2.7) Phenytoin (Dilantin) Level 7.9 ug/mL (10-20) L Pending Height (Feet): 5 Height (Inches): 4.00 Weight (Pounds): 142 Medications Current Medications Medications (Trade) Dose Ordered Sig/Radha Route PRN Reason Start Time Stop Time Status Last Admin Dose Admin Acetaminophen (Tylenol) 650 mg Q4H PRN ORAL fever 12/27/16 23:30 01/26/17 23:29 Al Hydroxide/Mg Hydroxide (Mylanta II) 30 ml Q6H PRN ORAL dyspepsia 12/27/16 23:30 01/26/17 23:29 Aspirin (Ecotrin) 81 mg DAILY ORAL 12/28/16 09:00 01/27/17 08:59 12/28/16 09:18 Atorvastatin Calcium (Lipitor) 40 mg BEDTIME ORAL 12/28/16 21:00 01/27/17 20:59 Dextrose (Dextrose 50%) STAT PRN IV Hypoglycemia 12/27/16 23:30 01/26/17 23:29 Divalproex Sodium (Depakote ER) 1,000 mg EVERY 12 HOURS ORAL 12/28/16 21:00 01/27/17 20:59 Heparin Sodium (Porcine) (Heparin 5000 units/ml) 5,000 units EVERY 12 HOURS SUBQ 12/28/16 09:00 01/27/17 08:59 12/28/16 09:22 Levetiracetam (Keppra) 1,500 mg EVERY 12 HOURS ORAL 12/28/16 21:00 01/27/17 20:59 Lorazepam (Ativan 2mg/ml 1ml) 2 mg EVERY HOUR PRN IV seizures 12/27/16 23:30 01/03/17 23:29 Morphine Sulfate (Morphine Sulfate) 1 mg Q4H PRN IVP For Pain 12/27/16 23:30 01/03/17 23:29 Ondansetron HCl (Zofran) 4 mg Q6H PRN IVP Nausea & Vomiting 12/27/16 23:30 01/26/17 23:29 Phenytoin (Dilantin) 200 mg BID ORAL 12/28/16 09:00 01/27/17 08:59 12/28/16 09:18 Polyethylene Glycol (Miralax) 17 gm HSPRN PRN ORAL Constipation 12/27/16 23:30 01/26/17 23:29 Zolpidem Tartrate (Ambien) 5 mg HSPRN PRN ORAL Insomnia 12/27/16 23:30 01/26/17 23:29 Assessment/Plan Problem List: (1) Uncontrolled seizures ICD Codes: R56.9 - Unspecified convulsions SNOMED: 61653508 (2) Status post stroke ICD Codes: Z86.73 - Personal history of transient ischemic attack (TIA), and cerebral infarction without residual deficits SNOMED: 674660275 (3) DM (diabetes mellitus) ICD Codes: E11.9 - Type 2 diabetes mellitus without complications SNOMED: 33021907 Assessment/Plan neuro evaluation Ativan prn dvt prophylaxis sliding scale LUKE ANDINO Dec 28, 2016 12:58
[2016-12-28] MEDS ORDERED: Mylanta II UD 30ml ORAL PRN (14:30)
[2016-12-28] MEDS ORDERED: LORazepam Inj 2mg/ml 1ml IV PRN (15:00)
[2016-12-28] MEDS ORDERED: Morphine Sulfate 2mg/ml Inj IVP PRN (15:30)
[2016-12-28] MEDS: D5 1/2NS 1,000 ML IV SCH (17:09)
[2016-12-28] MEDS ORDERED: Zolpidem 5mg tab ORAL PRN (21:00)
[2016-12-28] MEDS ORDERED: Miralax 17gm pkt ORAL PRN (21:00)
[2016-12-28] MEDS ORDERED: Depakote 500mg tab ORAL SCH (21:00)
[2016-12-28] MEDS: Valproic Acid 250mg/5ml Liquid ORAL SCH (21:29)
[2016-12-28] MEDS: levETIRAcetam 500mg/5ml Liquid ORAL SCH (21:31)
[2016-12-28] MEDS: Phenytoin Susp 100mg/4ml ORAL SCH (21:32)
[2016-12-28] MEDS: Heparin 5000 units/ml inj SUBQ SCH (21:33)
--- NOTE | 2016-12-28 21:48 | Consultation ---
DATE OF CONSULTATION: 12/28/2016 NEUROLOGICAL CONSULTATION CONSULTING PHYSICIAN: Nima Mejia M.D. REQUESTING PHYSICIAN: Alli Chase M.D. HISTORY OF PRESENT ILLNESS: The patient is a 61-year-old gentleman, well known to this facility for multiple admissions related to chronic seizure disorder, poorly controlled. Currently admitted after having a generalized seizure witnessed at home. The patient is reportedly compliant with his medication. The patient's vital signs on admission were stable, blood pressure 138/89 and temperature 98.1 degrees. While in the emergency department, the patient had another generalized seizure for which he was given Ativan. EKG, normal sinus rhythm. Got a CT scan of the brain, this revealed no change from previous study from 03/12/2016, with age-related enlargement of ventricles, extensive periventricular deep white matter chronic ischemic changes, calcification of right parietal cortex, old lacunar infarct, left basal ganglia and allyn. There was no evidence of acute abnormalities. No midline shift. Since admission to present, remained stable Laboratory work included mild anemia, hemoglobin 13.5, and hematocrit 38.9. His chemistry panel with blood sugar 121 and alkaline phosphatase 190. Toxicology panel with phenytoin level 7.9. The patient is known to have history of multiple strokes, chronic seizure disorder, and developing an upper motor neuron deficit bilaterally. His previous diagnostic studies included coagulation panel, lipid panel, ZEE, and sedimentation rate, which were reportedly negative. MRI of the brain confirmed presence of old lacunar strokes. He has a history of hypertension and hyperlipidemia. During previous hospitalization, 12/17/2016, his medications were adjusted, Keppra up to 1500 b.i.d., phenytoin 200 mg b.i.d., and additional Depakote 500 mg twice a day was initiated. During current admission, apparently, the patient had the reduced doses of Dilantin and Keppra. SOCIAL HISTORY: Lives with his family. No evidence of alcohol or drug abuse. FAMILY HISTORY: Noncontributory. REVIEW OF SYSTEM: Unable to obtain due to the patient's status. PHYSICAL EXAMINATION: GENERAL: He is a well-developed and well-nourished man, found to be asleep. VITAL SIGNS: Stable. Blood pressure 119/63 and afebrile. HEENT: Head, normocephalic. There is no evidence of trauma. On stimulation, open eyes. He has a left gaze preference. MUSCULOSKELETAL EXAMINATION: Unremarkable. MENTAL STATUS: The patient is arousable. He has no eye contact. He does not follow commands. Nonverbal, at times appears mumbling. CRANIAL NERVE II: Pupils both responding to light and accommodation. There is a left gaze preference, but has a full range of motion. Fundi poorly visualized. CRANIAL NERVE V: Normal corneal responses. CRANIAL NERVE VII: Minor facial asymmetry. CRANIAL NERVE VIII: Normal hearing. CRANIAL NERVES IX THROUGH XII: Reduced gag response. Now, NG-tube in place. MOTOR EXAMINATION: There is a generalized rigidity predominantly on the left side. He has spontaneous movements in all extremities, but does maintain against the gravity Right arm, more active, 4/5. Deep tendon reflexes, brisk, 3+, higher on the right. Plantar response is mute bilaterally. SENSORY EXAMINATION: Withdrawing to pin stimulation in all limbs. GAIT: Not tested. IMPRESSION: 1. Chronic generalized seizure disorder, poorly controlled refractory breakthrough episode. 2. Extensive ischemic cerebrovascular disease with multiple lacunar strokes 3. Hypertension. 4. Hyperlipidemia. RECOMMENDATIONS: Upgrade doses of Dilantin up mg b.i.d., Keppra 1500 mg b.i.d., and start Depakote 1000 b.i.d. Blood levels to be obtained to readjust the doses further. We will recheck EEG, to rule out ongoing seizure event. Continue with supportive care including statins and aspirin. Maintain fall precautions. Thank you for allowing me to see this interesting patient in neurological consultation. Nima Mejia M.D. DR: TRACY JOB#: [id number] CC:
[2016-12-29] VITALS: BP 116/74
[2016-12-29 04:38] VITALS: BP 133/48
[2016-12-29] MEDS: D5 1/2NS 1,000 ML IV SCH ×2 (06:29→18:27)
[2016-12-29 08:24] VITALS: BP 125/72
[2016-12-29] MEDS: Aspirin EC 81mg tab ORAL SCH (09:39)
[2016-12-29] MEDS: Phenytoin Susp 100mg/4ml ORAL SCH ×2 (09:39→20:51)
[2016-12-29] MEDS: levETIRAcetam 500mg/5ml Liquid ORAL SCH ×2 (09:39→20:50)
[2016-12-29] MEDS: Valproic Acid 250mg/5ml Liquid ORAL SCH ×2 (09:39→20:51)
[2016-12-29] MEDS: Heparin 5000 units/ml inj SUBQ SCH ×2 (09:45→21:00)
[2016-12-29 12:26] VITALS: BP 123/77
[2016-12-29 16:00] VITALS: BP 135/56
[2016-12-29 20:00] VITALS: BP_SYST 141; BP_SYST 90; BP_DIAS 56; BP_DIAS 75
--- NOTE | 2016-12-29 23:28 | Pulmonology Progress Note ---
Assessment/Plan Problems: (1) Uncontrolled seizures (2) Status post stroke (3) DM (diabetes mellitus) Assessment/Plan Neuro f/u adjust seizure meds pt/ot swallow study Subjective ROS Limited/Unobtainable: Yes Allergies: Coded Allergies: No Known Allergies (Unverified , 01/07/16) Objective Last 24 Hour Vital Signs Date Time Temp Pulse Resp B/P Pulse Ox O2 Delivery O2 Flow Rate FiO2 12/29/16 20:00 97.9 85 22 141/75 97 Room Air 12/29/16 18:58 98.1 12/29/16 16:00 98.1 91 20 135/56 96 Room Air 12/29/16 12:26 98.1 95 20 123/77 96 Room Air 12/29/16 08:24 98.2 95 20 125/72 96 Room Air 12/29/16 04:38 97.8 96 22 133/48 92 Room Air Intake and Output 12/28/16 12/29/16 19:00 07:00 Intake Total 75 ml 975 ml Balance 75 ml 975 ml Intake IV Total 75 ml 975 ml # Voids 1 4 Objective General Appearance: WD/WN Lines, tubes and drains: peripheral, HEENT: normocephalic, atraumatic Neck: non-tender, normal alignment Respiratory/Chest: chest wall non-tender, lungs clear Heart: regular Ext: nos C/C/E Laboratory Tests 12/29/16 04:35: Valproic Acid (Depakene) Level 11L Current Medications Medications (Trade) Dose Ordered Sig/Radha Route PRN Reason Start Time Stop Time Status Last Admin Dose Admin Acetaminophen (Tylenol) 650 mg Q4H PRN ORAL fever 12/28/16 14:30 01/27/17 14:29 Al Hydroxide/Mg Hydroxide (Mylanta II) 30 ml Q6H PRN ORAL dyspepsia 12/28/16 14:30 01/27/17 14:29 Aspirin (Ecotrin) 81 mg DAILY ORAL 12/29/16 09:00 01/28/17 08:59 12/29/16 09:39 Atorvastatin Calcium (Lipitor) 40 mg BEDTIME ORAL 12/28/16 21:00 01/27/17 20:59 12/29/16 21:01 Dextrose (Dextrose 50%) STAT PRN IV Hypoglycemia 12/28/16 14:45 01/27/17 14:44 Dextrose/Sodium Chloride (D5 0.45% NS) 1,000 ml @ 75 mls/hr [id number] IV 12/28/16 17:00 01/27/17 16:59 12/29/16 18:27 Heparin Sodium (Porcine) (Heparin 5000 units/ml) 5,000 units EVERY 12 HOURS SUBQ 12/28/16 21:00 01/27/17 20:59 12/29/16 21:00 Levetiracetam 1500 mg 1,500 mg Q12HR ORAL 12/28/16 21:00 01/27/17 20:59 12/29/16 20:50 Lorazepam (Ativan 2mg/ml 1ml) 2 mg Q1H PRN IV seizures 12/28/16 15:00 01/04/17 14:59 Morphine Sulfate (Morphine Sulfate) 1 mg Q4H PRN IVP For Pain 4-12/28/16 15:30 01/04/17 15:29 12/29/16 18:28 Ondansetron HCl (Zofran) 4 mg Q6H PRN IVP Nausea & Vomiting 12/28/16 15:30 01/27/17 15:29 Phenytoin (Dilantin) 200 mg EVERY 12 HOURS ORAL 12/28/16 21:00 01/27/17 20:59 12/29/16 20:51 Polyethylene Glycol (Miralax) 17 gm HSPRN PRN ORAL Constipation 12/28/16 21:00 01/27/17 20:59 Valproic Acid (Depakene) 1,000 mg EVERY 12 HOURS ORAL 12/28/16 21:30 01/27/17 21:29 12/29/16 20:51 Zolpidem Tartrate (Ambien) 5 mg HSPRN PRN ORAL Insomnia 12/28/16 21:00 01/27/17 20:59 LUKE ANDINO Dec 29, 2016 23:28
[2016-12-30] VITALS: BP 116/74
[2016-12-30 04:00] VITALS: BP 129/70
[2016-12-30] MEDS: D5 1/2NS 1,000 ML IV SCH ×2 (07:00→17:47)
[2016-12-30 07:49] VITALS: BP 100/60
[2016-12-30] MEDS: Phenytoin Susp 100mg/4ml ORAL SCH ×2 (08:27→20:40)
[2016-12-30] MEDS: levETIRAcetam 500mg/5ml Liquid ORAL SCH ×2 (08:27→20:41)
[2016-12-30] MEDS: Heparin 5000 units/ml inj SUBQ SCH ×2 (08:28→20:46)
[2016-12-30] MEDS: Aspirin EC 81mg tab ORAL SCH (08:28)
[2016-12-30] MEDS: Valproic Acid 250mg/5ml Liquid ORAL SCH ×2 (08:28→20:40)
[2016-12-30] MEDS ORDERED: D5 1/2NS 1000ml IV ONE ×2 (08:38)
[2016-12-30 12:00] VITALS: BP 107/67
[2016-12-30 16:11] VITALS: BP 112/84
--- NOTE | 2016-12-30 19:15 | Pulmonology Progress Note ---
Assessment/Plan Problems: (1) Uncontrolled seizures (2) Status post stroke (3) DM (diabetes mellitus) Assessment/Plan d/w window caser of the [place] pt needs placement swallow study f/u by neuro seizures are controlled Subjective ROS Limited/Unobtainable: Yes Allergies: Coded Allergies: No Known Allergies (Unverified , 01/07/16) Objective Last 24 Hour Vital Signs Date Time Temp Pulse Resp B/P Pulse Ox O2 Delivery O2 Flow Rate FiO2 12/30/16 16:11 98.4 85 18 112/84 97 Room Air 12/30/16 12:00 97.2 77 18 107/67 98 Room Air 12/30/16 07:49 98.2 83 20 100/60 97 12/30/16 04:00 98.4 85 22 129/70 91 Room Air 12/30/16 00:00 98.8 90 20 116/74 95 Room Air 12/29/16 20:00 97.9 85 22 141/75 97 Room Air Intake and Output 12/29/16 12/30/16 19:00 07:00 Intake Total 900 ml 825 ml Balance 900 ml 825 ml Intake IV Total 900 ml 825 ml # Voids 6 Objective General Appearance: WD/WN Lines, tubes and drains: peripheral, HEENT: normocephalic, atraumatic Neck: non-tender, normal alignment Respiratory/Chest: chest wall non-tender, lungs clear Heart: regular Ext: nos C/C/E Current Medications Medications (Trade) Dose Ordered Sig/Radha Route PRN Reason Start Time Stop Time Status Last Admin Dose Admin Acetaminophen (Tylenol) 650 mg Q4H PRN ORAL fever 12/28/16 14:30 01/27/17 14:29 Al Hydroxide/Mg Hydroxide (Mylanta II) 30 ml Q6H PRN ORAL dyspepsia 12/28/16 14:30 01/27/17 14:29 Aspirin (Ecotrin) 81 mg DAILY ORAL 12/29/16 09:00 01/28/17 08:59 12/30/16 08:28 Atorvastatin Calcium (Lipitor) 40 mg BEDTIME ORAL 12/28/16 21:00 01/27/17 20:59 12/29/16 21:01 Dextrose (Dextrose 50%) STAT PRN IV Hypoglycemia 12/28/16 14:45 01/27/17 14:44 Dextrose/Sodium Chloride (D5 0.45% NS) 1,000 ml @ 75 mls/hr [id number] IV 12/28/16 17:00 01/27/17 16:59 12/30/16 17:47 Heparin Sodium (Porcine) (Heparin 5000 units/ml) 5,000 units EVERY 12 HOURS SUBQ 12/28/16 21:00 01/27/17 20:59 12/30/16 08:28 Levetiracetam 1500 mg 1,500 mg Q12HR ORAL 12/28/16 21:00 01/27/17 20:59 12/30/16 08:27 Lorazepam (Ativan 2mg/ml 1ml) 2 mg Q1H PRN IV seizures 12/28/16 15:00 01/04/17 14:59 Morphine Sulfate (Morphine Sulfate) 1 mg Q4H PRN IVP For Pain 4-12/28/16 15:30 01/04/17 15:29 12/29/16 18:28 Ondansetron HCl (Zofran) 4 mg Q6H PRN IVP Nausea & Vomiting 12/28/16 15:30 01/27/17 15:29 Phenytoin (Dilantin) 200 mg EVERY 12 HOURS ORAL 12/28/16 21:00 01/27/17 20:59 12/30/16 08:27 Polyethylene Glycol (Miralax) 17 gm HSPRN PRN ORAL Constipation 12/28/16 21:00 01/27/17 20:59 Valproic Acid (Depakene) 1,000 mg EVERY 12 HOURS ORAL 12/28/16 21:30 01/27/17 21:29 12/30/16 08:28 Zolpidem Tartrate (Ambien) 5 mg HSPRN PRN ORAL Insomnia 12/28/16 21:00 01/27/17 20:59 LUKE ANDINO Dec 30, 2016 19:15
[2016-12-30 20:00] VITALS: BP 122/69
[2016-12-31] VITALS: BP 124/71
[2016-12-31 03:39] VITALS: BP 123/76
[2016-12-31 08:00] VITALS: BP 104/64
[2016-12-31] MEDS: Valproic Acid 250mg/5ml Liquid ORAL SCH ×2 (09:26→21:02)
[2016-12-31] MEDS: Phenytoin Susp 100mg/4ml ORAL SCH ×2 (09:26→21:03)
[2016-12-31] MEDS: Heparin 5000 units/ml inj SUBQ SCH ×2 (09:31→21:39)
[2016-12-31] MEDS: Aspirin EC 81mg tab ORAL SCH (09:32)
[2016-12-31] MEDS: levETIRAcetam 500mg/5ml Liquid ORAL SCH ×2 (09:32→21:04)
[2016-12-31] MEDS: D5 1/2NS 1,000 ML IV SCH ×2 (09:46→21:56)
[2016-12-31 12:00] VITALS: BP 118/75
--- NOTE | 2016-12-31 12:38 | Neurology Progress Note ---
Interim History Interim History ROS Limited/Unobtainable: Yes Complaints: mute Events: no sz noted Objective Physical Exam Last Vital Signs Date Time Temp Pulse Resp B/P Pulse Ox O2 Delivery O2 Flow Rate FiO2 12/31/16 08:00 97.8 79 18 104/64 97 Room Air General: well developed, well nourished, no acute distress Head: normocophalic, atraumatic Neurologic Exam Mental Status: awake, alert, other - mute not following command Speech: other Language: other Cranial Nerve II: fundus normal, visual lambert, no papilledema Cranial Nerves III, IV, : PERRLA, EOMI, pupils Cranial Nerve V: normal facial sensations, temporales function normal, masseters function normal, pterygoids function normal Cranial Nerve VII: normal facial expressions Cranial Nerve VIII: normal hearing, no nystagmus Cranial Nerve IX: normal palate elevation, gag response Cranial Nerve X: no voice hoarseness Cranial Nerve XI: SCM symmetric, trapezii function normal Cranial Nerve XII: tongue midline, no tongue atrophy/fasciculations Motor System: no involuntary movement, no muscle wasting, other - diffuse rigidity R>L Sensory: other Coordination: other Deep Tendon Reflexes: 0 ankle (L), 0 ankle (R), 0 bicep (L), 0 bicep (R), 0 brachioradialis (L), 0 brachioradialis (R), 0 knee (L), 0 knee (R), 0 tricep (L) , 0 tricep (R) Reflexes: mute plantar (L), mute plantar (R) Impression/Recommendations Problems: (1) chronic seizure disorder. breakthru activity (2) s/p multiple strokes with dementia, spastic quadriparesis (3) DM (diabetes mellitus) Status: stable Recommendations cont present rx speech eval pt/ot RACH IBARRA Dec 31, 2016 12:38
[2016-12-31] MEDS ORDERED: D5 1/2NS 1000ml IV ONE (15:11)
[2016-12-31 16:00] VITALS: BP 116/65
--- NOTE | 2016-12-31 16:59 | Cardiology Report ---
APPROVED REPORT EKG Measurement Heart [id number] Sinus tachycardia Otherwise normal ECG
--- NOTE | 2016-12-31 19:46 | Pulmonology Progress Note ---
Assessment/Plan Problems: (1) Uncontrolled seizures (2) Status post stroke (3) DM (diabetes mellitus) Assessment/Plan d/w [employer] of the [employer] pt needs placement swallow study no more seizures Subjective ROS Limited/Unobtainable: Yes Allergies: Coded Allergies: No Known Allergies (Unverified , 01/07/16) Objective Last 24 Hour Vital Signs Date Time Temp Pulse Resp B/P Pulse Ox O2 Delivery O2 Flow Rate FiO2 12/31/16 16:00 97.7 84 20 116/65 96 Room Air 12/31/16 12:00 97.7 88 20 118/75 Room Air 12/31/16 08:00 97.8 79 18 104/64 97 Room Air 12/31/16 03:39 97.7 88 18 123/76 95 Room Air 12/31/16 00:00 97.2 94 19 124/71 98 Room Air 12/30/16 20:00 97.9 89 19 122/69 98 Room Air Intake and Output 12/30/16 12/31/16 19:00 07:00 Intake Total 900 ml 825 ml Balance 900 ml 825 ml Intake IV Total 900 ml 825 ml # Voids 1 3 Objective General Appearance: WD/WN Lines, tubes and drains: peripheral, HEENT: normocephalic, atraumatic Neck: non-tender, normal alignment Respiratory/Chest: chest wall non-tender, lungs clear Heart: regular Ext: nos C/C/E Current Medications Medications (Trade) Dose Ordered Sig/Radha Route PRN Reason Start Time Stop Time Status Last Admin Dose Admin Acetaminophen (Tylenol) 650 mg Q4H PRN ORAL fever 12/28/16 14:30 01/27/17 14:29 Al Hydroxide/Mg Hydroxide (Mylanta II) 30 ml Q6H PRN ORAL dyspepsia 12/28/16 14:30 01/27/17 14:29 Aspirin (Ecotrin) 81 mg DAILY ORAL 12/29/16 09:00 01/28/17 08:59 12/31/16 09:32 Atorvastatin Calcium (Lipitor) 40 mg BEDTIME ORAL 12/28/16 21:00 01/27/17 20:59 12/30/16 20:39 Dextrose (Dextrose 50%) STAT PRN IV Hypoglycemia 12/28/16 14:45 01/27/17 14:44 Dextrose/Sodium Chloride (D5 0.45% NS) 1,000 ml @ 75 mls/hr [id number] IV 12/28/16 17:00 01/27/17 16:59 12/31/16 09:46 Heparin Sodium (Porcine) (Heparin 5000 units/ml) 5,000 units EVERY 12 HOURS SUBQ 12/28/16 21:00 01/27/17 20:59 12/31/16 09:31 Levetiracetam 1500 mg 1,500 mg Q12HR ORAL 12/28/16 21:00 01/27/17 20:59 12/31/16 09:32 Lorazepam (Ativan 2mg/ml 1ml) 2 mg Q1H PRN IV seizures 12/28/16 15:00 01/04/17 14:59 Morphine Sulfate (Morphine Sulfate) 1 mg Q4H PRN IVP For Pain 12-3112/28/16 15:30 01/04/17 15:29 12/29/16 18:28 Ondansetron HCl (Zofran) 4 mg Q6H PRN IVP Nausea & Vomiting 12/28/16 15:30 01/27/17 15:29 Phenytoin (Dilantin) 200 mg EVERY 12 HOURS ORAL 12/28/16 21:00 01/27/17 20:59 12/31/16 09:26 Polyethylene Glycol (Miralax) 17 gm HSPRN PRN ORAL Constipation 12/28/16 21:00 01/27/17 20:59 Valproic Acid (Depakene) 1,000 mg EVERY 12 HOURS ORAL 12/28/16 21:30 01/27/17 21:29 12/31/16 09:26 Zolpidem Tartrate (Ambien) 5 mg HSPRN PRN ORAL Insomnia 12/28/16 21:00 01/27/17 20:59 LUKE ANDINO Dec 31, 2016 19:46
[2016-12-31 20:00] VITALS: BP 110/67
[2017-01-01] VITALS: BP 127/76
[2017-01-01 04:00] VITALS: BP 113/76
[2017-01-01 08:00] VITALS: BP 119/78
[2017-01-01] MEDS: Heparin 5000 units/ml inj SUBQ SCH ×2 (09:13→23:07)
[2017-01-01] MEDS: Valproic Acid 250mg/5ml Liquid ORAL SCH ×2 (09:14→23:03)
[2017-01-01] MEDS: Aspirin EC 81mg tab ORAL SCH (09:15)
[2017-01-01] MEDS: levETIRAcetam 500mg/5ml Liquid ORAL SCH ×2 (09:15→23:04)
[2017-01-01] MEDS: Phenytoin Susp 100mg/4ml ORAL SCH ×2 (09:15→23:04)
[2017-01-01] MEDS: D5 1/2NS 1,000 ML IV SCH (11:00)
[2017-01-01 12:00] VITALS: BP 109/76
[2017-01-01 16:00] VITALS: BP 116/74
[2017-01-01 20:00] VITALS: BP 111/68
--- NOTE | 2017-01-01 22:29 | Pulmonology Progress Note ---
Assessment/Plan Problems: (1) Uncontrolled seizures (2) Status post stroke (3) DM (diabetes mellitus) Assessment/Plan d/w disability case manager of the [employer] pt needs placement swallow study Subjective Allergies: Coded Allergies: No Known Allergies (Unverified , 01/07/16) Objective Last 24 Hour Vital Signs Date Time Temp Pulse Resp B/P Pulse Ox O2 Delivery O2 Flow Rate FiO2 01/01/17 20:00 97.9 83 20 111/68 98 Room Air 01/01/17 16:00 97.7 82 18 116/74 98 01/01/17 12:00 97.7 75 18 109/76 97 Room Air 01/01/17 08:00 98.6 77 18 119/78 97 Room Air 01/01/17 04:00 99.0 88 18 113/76 96 Room Air 01/01/17 00:00 98.2 87 18 127/76 96 Room Air Intake and Output 12/31/16 01/01/17 19:00 07:00 Intake Total 675 ml 750 ml Balance 675 ml 750 ml Intake IV Total 675 ml 750 ml # Voids 5 Objective General Appearance: WD/WN Lines, tubes and drains: peripheral, HEENT: normocephalic, atraumatic Neck: non-tender, normal alignment Respiratory/Chest: chest wall non-tender, lungs clear Heart: regular Ext: nos C/C/E Laboratory Tests 01/01/17 04:50: Phenytoin (Dilantin) Level 6.8L, Valproic Acid (Depakene) Level 54 Current Medications Medications (Trade) Dose Ordered Sig/Radha Route PRN Reason Start Time Stop Time Status Last Admin Dose Admin Acetaminophen (Tylenol) 650 mg Q4H PRN ORAL fever 12/28/16 14:30 01/27/17 14:29 Al Hydroxide/Mg Hydroxide (Mylanta II) 30 ml Q6H PRN ORAL dyspepsia 12/28/16 14:30 01/27/17 14:29 Aspirin (Ecotrin) 81 mg DAILY ORAL 12/29/16 09:00 01/28/17 08:59 01/01/17 09:15 Atorvastatin Calcium (Lipitor) 40 mg BEDTIME ORAL 12/28/16 21:00 01/27/17 20:59 12/31/16 21:03 Dextrose (Dextrose 50%) STAT PRN IV Hypoglycemia 12/28/16 14:45 01/27/17 14:44 Dextrose/Sodium Chloride (D5 0.45% NS) 1,000 ml @ 75 mls/hr [id number] IV 12/28/16 17:00 01/27/17 16:59 01/01/17 11:00 Heparin Sodium (Porcine) (Heparin 5000 units/ml) 5,000 units EVERY 12 HOURS SUBQ 12/28/16 21:00 01/27/17 20:59 01/01/17 09:13 Levetiracetam 1500 mg 1,500 mg Q12HR ORAL 12/28/16 21:00 01/27/17 20:59 01/01/17 09:15 Lorazepam (Ativan 2mg/ml 1ml) 2 mg Q1H PRN IV seizures 12/28/16 15:00 01/04/17 14:59 Morphine Sulfate (Morphine Sulfate) 1 mg Q4H PRN IVP For Pain 4-12/28/16 15:30 01/04/17 15:29 12/29/16 18:28 Ondansetron HCl (Zofran) 4 mg Q6H PRN IVP Nausea & Vomiting 12/28/16 15:30 01/27/17 15:29 01/01/17 03:38 Phenytoin (Dilantin) 200 mg EVERY 12 HOURS ORAL 12/28/16 21:00 01/27/17 20:59 01/01/17 09:15 Polyethylene Glycol (Miralax) 17 gm HSPRN PRN ORAL Constipation 12/28/16 21:00 01/27/17 20:59 Valproic Acid (Depakene) 1,000 mg EVERY 12 HOURS ORAL 12/28/16 21:30 01/27/17 21:29 01/01/17 09:14 Zolpidem Tartrate (Ambien) 5 mg HSPRN PRN ORAL Insomnia 12/28/16 21:00 01/27/17 20:59 LUKE ANDINO Jan 01, 2017 22:29
[2017-01-02 00:15] VITALS: BP 126/75
[2017-01-02] MEDS: D5 1/2NS 1,000 ML IV SCH ×2 (03:40→17:00)
[2017-01-02 04:00] VITALS: BP 129/66
[2017-01-02 08:35] VITALS: BP 110/70
[2017-01-02] MEDS: Valproic Acid 250mg/5ml Liquid ORAL SCH ×2 (08:40→20:56)
[2017-01-02] MEDS: Phenytoin Susp 100mg/4ml ORAL SCH ×2 (08:40→20:55)
[2017-01-02] MEDS: Aspirin EC 81mg tab ORAL SCH (08:41)
[2017-01-02] MEDS: levETIRAcetam 500mg/5ml Liquid ORAL SCH ×2 (08:41→20:56)
[2017-01-02] MEDS: Heparin 5000 units/ml inj SUBQ SCH ×2 (08:43→20:59)
[2017-01-02 12:20] VITALS: BP 115/66
--- NOTE | 2017-01-02 14:35 | Diagnostic Imaging Report ---
Indication: Altered mental status, uncontrolled seizures, recent CVA Technique: spiral acquisitions obtained through the brain. Angled axial and coronal 5 x 5 mm slices were reconstructed. No IV contrast utilized. Radiation dose was minimized using automated exposure control Total dose length product 1357 mGycm. CTDIvol(s) 70 mGy Comparison: 12/27/2016 FINDINGS: No acute hemorrhage or edema. No mass effect or midline shift. There is age-related enlargement of the ventricles and extra axial CSF spaces. There is periventricular deep white matter ischemic change. Normal vaughn-white differentiation. There is a cortical calcification in the right parietal region again demonstrated. There are old lacunar infarcts in the bilateral basal ganglia, more numerous on the left. There is also a lacunar infarct in the allyn to the right of midline. Visualized orbits are unremarkable. There is minimal ethmoid sinus disease. Intact calvarium. IMPRESSION: Chronic and age-related changes. Negative for acute intracranial bleed or mass effect Multiple old infarcts, unchanged Minimal ethmoid sinus disease The CT scanner at [facility] is accredited by the [employer] and the scans are performed using protocols designed to limit radiation exposure to as low as reasonably achievable to attain images of sufficient resolution adequate for diagnostic evaluation
[2017-01-02] MEDS ORDERED: D5 1/2NS 1000ml IV ONE (15:43)
[2017-01-02 16:20] VITALS: BP 116/66
[2017-01-02 20:00] VITALS: BP 119/76
--- NOTE | 2017-01-02 21:36 | Pulmonology Progress Note ---
Assessment/Plan Problems: (1) Multi-infarct dementia (2) Uncontrolled seizures (3) Status post stroke (4) DM (diabetes mellitus) Assessment/Plan CT head ordered swallow study check electrolytes family meeting Subjective Interval Events: no new complains Allergies: Coded Allergies: No Known Allergies (Unverified , 01/07/16) Objective Last 24 Hour Vital Signs Date Time Temp Pulse Resp B/P Pulse Ox O2 Delivery O2 Flow Rate FiO2 01/02/17 16:20 97.7 92 19 116/66 95 Room Air 01/02/17 12:20 98.2 82 17 115/66 93 Room Air 01/02/17 08:35 97.8 76 24 110/70 94 Room Air 01/02/17 04:00 98.1 83 20 129/66 95 Room Air 01/02/17 00:15 97.9 94 20 126/75 93 Room Air Intake and Output 01/01/17 01/02/17 19:00 07:00 Intake Total 450 ml 75 ml Balance 450 ml 75 ml Intake IV Total 450 ml 75 ml # Voids 2 3 Objective General Appearance: WD/WN Lines, tubes and drains: peripheral, HEENT: normocephalic, atraumatic Neck: non-tender, normal alignment Respiratory/Chest: chest wall non-tender, lungs clear Heart: regular Ext: nos C/C/E Current Medications Medications (Trade) Dose Ordered Sig/Radha Route PRN Reason Start Time Stop Time Status Last Admin Dose Admin Acetaminophen (Tylenol) 650 mg Q4H PRN ORAL fever 12/28/16 14:30 01/27/17 14:29 Al Hydroxide/Mg Hydroxide (Mylanta II) 30 ml Q6H PRN ORAL dyspepsia 12/28/16 14:30 01/27/17 14:29 Aspirin (Ecotrin) 81 mg DAILY ORAL 12/29/16 09:00 01/28/17 08:59 01/02/17 08:41 Atorvastatin Calcium (Lipitor) 40 mg BEDTIME ORAL 12/28/16 21:00 01/27/17 20:59 01/02/17 20:57 Dextrose (Dextrose 50%) STAT PRN IV Hypoglycemia 12/28/16 14:45 01/27/17 14:44 Dextrose/Sodium Chloride (D5 0.45% NS) 1,000 ml @ 75 mls/hr [id number] IV 12/28/16:00 01/27/17 16:59 01/02/17 17:00 Heparin Sodium (Porcine) (Heparin 5000 units/ml) 5,000 units EVERY 12 HOURS SUBQ 12/28/16 21:00 01/27/17 20:59 01/02/17 20:59 Levetiracetam 1500 mg 1,500 mg Q12HR ORAL 12/28/16 21:00 01/27/17 20:59 01/02/17 20:56 Lorazepam (Ativan 2mg/ml 1ml) 2 mg Q1H PRN IV seizures 12/28/16 15:00 01/04/17 14:59 Morphine Sulfate (Morphine Sulfate) 1 mg Q4H PRN IVP For Pain 12-3112/28/16 15:30 01/04/17 15:29 12/29/16 18:28 Ondansetron HCl (Zofran) 4 mg Q6H PRN IVP Nausea & Vomiting 12/28/16 15:30 01/27/17 15:29 01/01/17 03:38 Phenytoin (Dilantin) 200 mg EVERY 12 HOURS ORAL 12/28/16 21:00 01/27/17 20:59 01/02/17 20:55 Polyethylene Glycol (Miralax) 17 gm HSPRN PRN ORAL Constipation 12/28/16 21:00 01/27/17 20:59 Valproic Acid (Depakene) 1,000 mg EVERY 12 HOURS ORAL 12/28/16 21:30 01/27/17 21:29 01/02/17 20:56 Zolpidem Tartrate (Ambien) 5 mg HSPRN PRN ORAL Insomnia 12/28/16 21:00 01/27/17 20:59 LUKE ANDINO Jan 02, 2017 21:36
[2017-01-03] VITALS: BP 126/73
[2017-01-03 04:00] VITALS: BP 116/71
[2017-01-03] MEDS: D5 1/2NS 1,000 ML IV SCH ×2 (06:42→21:50)
[2017-01-03 08:00] VITALS: BP 116/69
[2017-01-03] MEDS: levETIRAcetam 500mg/5ml Liquid ORAL SCH ×2 (09:24→21:48)
[2017-01-03] MEDS: Valproic Acid 250mg/5ml Liquid ORAL SCH ×2 (09:24→21:49)
[2017-01-03] MEDS: Phenytoin Susp 100mg/4ml ORAL SCH ×2 (09:24→21:48)
[2017-01-03] MEDS: Aspirin EC 81mg tab ORAL SCH (09:24)
[2017-01-03] MEDS: Heparin 5000 units/ml inj SUBQ SCH ×2 (09:26→21:50)
[2017-01-03] MEDS ORDERED: D5 1/2NS 1000ml IV ONE (09:41)
[2017-01-03 12:00] VITALS: BP 127/75
[2017-01-03 16:00] VITALS: BP 133/69
--- NOTE | 2017-01-03 16:20 | Pulmonology Progress Note ---
Assessment/Plan Problems: (1) Uncontrolled seizures (2) Multi-infarct dementia (3) Status post stroke (4) DM (diabetes mellitus) Assessment/Plan family meeting to discuss plan of care might need PEG seizures are controlled Subjective ROS Limited/Unobtainable: No Allergies: Coded Allergies: No Known Allergies (Unverified , 01/07/16) Objective Last 24 Hour Vital Signs Date Time Temp Pulse Resp B/P Pulse Ox O2 Delivery O2 Flow Rate FiO2 01/03/17 12:00 98.2 94 18 127/75 96 Room Air 01/03/17 08:00 97.2 75 18 116/69 97 Room Air 01/03/17 04:00 97.9 89 20 116/71 96 Room Air 01/03/17 00:00 98.1 81 20 126/73 94 Room Air 01/02/17 20:00 98.1 79 20 119/76 95 Room Air 01/02/17 16:20 97.7 92 19 116/66 95 Room Air Intake and Output 01/02/17 01/03/17 19:00 07:00 Intake Total 825 ml 735 ml Balance 825 ml 735 ml Intake Oral 60 ml IV Total 825 ml 675 ml # Voids 6 Objective General Appearance: WD/WN Lines, tubes and drains: peripheral, HEENT: normocephalic, atraumatic Neck: non-tender, normal alignment Respiratory/Chest: chest wall non-tender, lungs clear Heart: regular Ext: nos C/C/E Current Medications Medications (Trade) Dose Ordered Sig/Radha Route PRN Reason Start Time Stop Time Status Last Admin Dose Admin Acetaminophen (Tylenol) 650 mg Q4H PRN ORAL fever 12/28/16 14:30 01/27/17 14:29 Al Hydroxide/Mg Hydroxide (Mylanta II) 30 ml Q6H PRN ORAL dyspepsia 12/28/16 14:30 01/27/17 14:29 Aspirin (Ecotrin) 81 mg DAILY ORAL 12/29/16 09:00 01/28/17 08:59 01/03/17 09:24 Atorvastatin Calcium (Lipitor) 40 mg BEDTIME ORAL 12/28/16 21:00 01/27/17 20:59 01/02/17 20:57 Dextrose (Dextrose 50%) STAT PRN IV Hypoglycemia 12/28/16 14:45 01/27/17 14:44 Dextrose/Sodium Chloride (D5 0.45% NS) 1,000 ml @ 75 mls/hr [id number] IV 12/28/16 17:00 01/27/17 16:59 01/03/17 06:42 Heparin Sodium (Porcine) (Heparin 5000 units/ml) 5,000 units EVERY 12 HOURS SUBQ 12/28/16 21:00 01/27/17 20:59 01/03/17 09:26 Levetiracetam 1500 mg 1,500 mg Q12HR ORAL 12/28/16 21:00 01/27/17 20:59 01/03/17 09:24 Lorazepam (Ativan 2mg/ml 1ml) 2 mg Q1H PRN IV seizures 12/28/16 15:00 01/04/17 14:59 Morphine Sulfate (Morphine Sulfate) 1 mg Q4H PRN IVP For Pain 4-12/28/16 15:30 01/04/17 15:29 12/29/16 18:28 Ondansetron HCl (Zofran) 4 mg Q6H PRN IVP Nausea & Vomiting 12/28/16 15:30 01/27/17 15:29 01/01/17 03:38 Phenytoin (Dilantin) 200 mg EVERY 12 HOURS ORAL 12/28/16 21:00 01/27/17 20:59 01/03/17 09:24 Polyethylene Glycol (Miralax) 17 gm HSPRN PRN ORAL Constipation 12/28/16 21:00 01/27/17 20:59 Valproic Acid (Depakene) 1,000 mg EVERY 12 HOURS ORAL 12/28/16 21:30 01/27/17 21:29 01/03/17 09:24 Zolpidem Tartrate (Ambien) 5 mg HSPRN PRN ORAL Insomnia 12/28/16 21:00 01/27/17 20:59 LUKE ANDINO Jan 03, 2017 16:20
[2017-01-03 20:00] VITALS: BP 127/76
--- NOTE | 2017-01-03 22:22 | General Progress Note ---
Assessment/Plan Assessment/Plan GI consult full note to follow. Family decline PEG at this time Will follow. Galen Oden MD Subjective Allergies: Coded Allergies: No Known Allergies (Unverified , 01/07/16) Objective Last 24 Hour Vital Signs Date Time Temp Pulse Resp B/P Pulse Ox O2 Delivery O2 Flow Rate FiO2 01/03/17 20:00 98.1 98 22 127/76 95 Room Air 01/03/17 16:00 97.2 85 18 133/69 96 Room Air 01/03/17 12:00 98.2 94 18 127/75 96 Room Air 01/03/17 08:00 97.2 75 18 116/69 97 Room Air 01/03/17 04:00 97.9 89 20 116/71 96 Room Air 01/03/17 00:00 98.1 81 20 126/73 94 Room Air Intake and Output 01/02/17 01/03/17 19:00 07:00 Intake Total 825 ml 735 ml Balance 825 ml 735 ml Intake Oral 60 ml IV Total 825 ml 675 ml # Voids 6 Height (Feet): 5 Height (Inches): 4.00 Weight (Pounds): 142 GALEN ODEN Jan 03, 2017 22:22
[2017-01-04] VITALS: BP 125/70
[2017-01-04 04:45] VITALS: BP 120/70
[2017-01-04 07:08] LABS: BASOPHILS % (AUTO) 0.8 % (0.0-2.0); EOSINOPHILS % (AUTO) 1.6 % (0.0-3.0); MEAN CORPUSCULAR HEMOGLOBIN 29.9 PG (27.0-31.0); MEAN CORPUSCULAR HGB CONC 32.8 G/DL (32.0-36.0); MEAN CORPUSCULAR VOLUME 91 FL (80-99); MEAN PLATELET VOLUME 6.7 FL (6.5-10.1); MONOCYTES % (AUTO) 9.6 % (1.0-10.0); NEUTROPHILS % (AUTO) 59.1 % (45.0-75.0); PLATELET COUNT 277 K/UL (150-450); RED BLOOD COUNT 4.32 M/UL (4.70-6.10); RED CELL DISTRIBUTION WIDTH 12.5 % (11.6-14.8); WHITE BLOOD COUNT 7.5 K/UL (4.8-10.8)
[2017-01-04 07:17] LABS: INR 1.1 (0.9-1.1); PROTHROMBIN TIME 11.4 SEC (9.30-11.50)
[2017-01-04 08:00] VITALS: BP 120/79
--- NOTE | 2017-01-04 08:27 | Diagnostic Imaging Report ---
Indications: Nasogastric tube placement. Technique: AP view of the abdomen Findings: Comparison: 12/28/2016. Nasogastric tube remains in place, tip in proximal port overlying and presumably within the proximal aspect of the stomach. Bowel gas pattern remains unremarkable. Pelvic vascular versus as reference calcifications again noted.. Degenerative changes again suggested in lower lumbar spine.. IMPRESSION: Nasogastric tube in stomach No evidence of acute abdominopelvic disease, unchanged.
--- NOTE | 2017-01-04 08:58 | Consultation ---
DATE OF CONSULTATION: 01/03/2017 NOTE: "VERY POOR AUDIO QUALITY" GASTROENTEROLOGY CONSULTATION CONSULTING PHYSICIAN: Galen Oden M.D. ATTENDING PHYSICIAN: Alli Chase M.D. REFERRING PHYSICIAN: Alli Chase M.D. CHIEF COMPLAINT: I was asked to see this patient by Dr. Alli Chase for evaluation of gastrostomy tube placement. HISTORY OF PRESENT ILLNESS: The patient is a debilitated 61-year-old man who was brought in due to seizure disorder. The patient also has poor oral intake and after failing swallow test, the patient has been evaluated for gastrostomy tube. The patient is also complaining of possible complications of to his family, but at this point, family wants to wait for a few days to see how the patient making decision of gastrostomy tube. The patient also has seizure disorder and has been seen separately by neurologist for this condition. PAST MEDICAL HISTORY: History of seizure disorder, history of hypertension, history of hyperlipidemia, history of multiple strokes. FAMILY HISTORY: Noncontributory. SOCIAL HISTORY: The patient lives with family. No recent history of smoking or drinking. REVIEW OF SYSTEMS: Otherwise unobtainable. PHYSICAL EXAMINATION: GENERAL: A debilitated man, seen in his room. HEENT: Normocephalic and atraumatic. NECK: Supple. CHEST: Clear to auscultation. CARDIOVASCULAR: Regular rate. ABDOMEN: Soft with good bowel sounds. EXTREMITIES: No edema. NEUROLOGIC: Noted for hemiparesis. LABORATORY DATA: Noted. ASSESSMENT: This patient presents with multiple strokes on imaging studies and also inability to eat p.o. The patient will require permanent gastrostomy tube for long-term enteral feeding, but the family at this time are not ready to accept this and want to wait for a few more days. I will therefore put in a nasogastric tube to see the patient gets fed in the interim until the family makes decision regarding the feeding. RECOMMENDATIONS: 1. Keep the head of bed elevated. 2. Nasogastric tube feeding. 3. Await family decision regarding PEG. Thank you for asking me to participate in the care of this patient. Galen Oden M.D. DR: JOCE JOB#: [id number] CC:
[2017-01-04] MEDS: Valproic Acid 250mg/5ml Liquid ORAL SCH ×2 (09:16→21:34)
[2017-01-04] MEDS: Aspirin EC 81mg tab ORAL SCH (09:16)
[2017-01-04] MEDS: Phenytoin Susp 100mg/4ml ORAL SCH ×2 (09:16→21:33)
[2017-01-04] MEDS: levETIRAcetam 500mg/5ml Liquid ORAL SCH ×2 (09:17→21:34)
[2017-01-04] MEDS: D5 1/2NS 1,000 ML IV SCH ×2 (09:18→21:37)
[2017-01-04] MEDS: Heparin 5000 units/ml inj SUBQ SCH ×2 (09:20→21:36)
[2017-01-04] MEDS ORDERED: D5 1/2NS 1000ml IV ONE (09:58)
[2017-01-04 10:20] LABS: ALANINE AMINOTRANSFERASE 18 U/L (3-41); ALBUMIN/GLOBULIN RATIO 0.6 (1.0-2.7); ANION GAP 14 (5-15); ASPARTATE AMINO TRANSFERASE 17 U/L (5-40); CALCIUM 8.5 mg/dL (8.6-10.2); CARBON DIOXIDE 27 mEQ/L (20-30); CHLORIDE 98 mEQ/L (98-107); CHOLESTEROL 132 mg/dL (< 200); CHOLESTEROL/HDL RATIO 3.8 (3.3-4.4); CREATININE 0.6 mg/dL (0.7-1.2); GLOMERULAR FILTRATION RATE > 60 mL/min (>60); HEMOLYSIS 3; LDL CHOLESTEROL (CALC.) 76 mg/dL (60-99); POTASSIUM 3.3 mEQ/L (3.4-4.9); SODIUM 139 mEQ/L (135-145); TOTAL PROTEIN 7.7 g/dL (6.6-8.7)
--- NOTE | 2017-01-04 10:49 | Pulmonology Progress Note ---
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 HTN prediabetes hyperlipidemia multiinfarct dementia/vascular dementia dysphagia protein calorie malnutrition hypokalemia PLAN OF CARE [place] floor neuro follows CT head on 12/27 with evidence of old lacunar infarcts, but no evidence of acute intracranial pathology repeated CT head 01/02 - again rafy cute intracranial pathology seizure precautions, increased doses of Dilantin and Keppra, started on Depakote hyperglycemia, [id number] qualified for prediabetes, close monitoring, TF formula recommended diabetic fall precautions PT/OT/ST - not able to participate in PT/OT/ST activities swallow eval failed recommended NPO and non-oral feeding, on NGT feeding strict aspiration precautions IVF ASA statin GI consult re GT placement appreciated family declined GT placement DVT prophylaxis replace K check prealbumin case discussed and evaluated by supervising physician Subjective Allergies: Coded Allergies: No Known Allergies (Unverified , 01/07/16) Subjective afebrile, no leukocytosis no signs of respiratory distress family declined GT placement Objective Last 24 Hour Vital Signs Date Time Temp Pulse Resp B/P Pulse Ox O2 Delivery O2 Flow Rate FiO2 01/04/17 08:00 98.1 78 20 120/79 100 01/04/17 04:45 98.1 80 22 120/70 96 Room Air 01/04/17 00:00 98.0 95 22 125/70 95 Room Air 01/03/17 20:00 98.1 98 22 127/76 95 Room Air 01/03/17 16:00 97.2 85 18 133/69 96 Room Air 01/03/17 12:00 98.2 94 18 127/75 96 Room Air Intake and Output 01/03/17 01/04/17 19:00 07:00 Intake Total 900 ml 810 ml Balance 900 ml 810 ml Intake Oral 60 ml IV Total 900 ml 750 ml # Voids 2 General Appearance: no acute distress, other - arousable, poorly responsive HEENT: normocephalic, atraumatic, anicteric, other - NGT Respiratory/Chest: lungs clear, no accessory muscle use Cardiovascular: normal peripheral pulses, normal rate, regular rhythm Abdomen: soft, non tender, non distended Extremities: no edema Neurologic/Psychiatric: abnormal gait, other - poorly responsive, bedridden, Musculoskeletal: atrophy - BLE Laboratory Tests 01/04/17 05:00: White Blood Count 7.5, Red Blood Count 4.32L, Hemoglobin 12.9L, Hematocrit 39.4L , Mean Corpuscular Volume 91, Mean Corpuscular Hemoglobin 29.9, Mean Corpuscular Hemoglobin Concent 32.8, Red Cell Distribution Width 12.5, Platelet Count 277, Mean Platelet Volume 6.7, Neutrophils (%) (Auto) 59.1, Lymphocytes (% ) (Auto) 29.0, Monocytes (%) (Auto) 9.6, Eosinophils (%) (Auto) 1.6, Basophils ( %) (Auto) 0.8, Prothrombin Time 11.4, Prothromb Time International Ratio 1.1, Activated Partial Thromboplast Time 28, Sodium Level 139, Potassium Level 3.3L, Chloride Level 98, Carbon Dioxide Level 27, Anion Gap 14, Blood Urea Nitrogen 11 , Creatinine 0.6L, Estimat Glomerular Filtration Rate > 60, Glucose Level 111H, Calcium Level 8.5L, Phosphorus Level 3.0, Magnesium Level 2.0, Total Bilirubin < 0.2, Aspartate Amino Transf (AST/SGOT) 17, Alanine Aminotransferase (ALT/SGPT ) 18, Alkaline Phosphatase 144H, Total Protein 7.7, Albumin 2.9L, Globulin 4.8, Albumin/Globulin Ratio 0.6L, Triglycerides Level 107, Cholesterol Level 132, LDL Cholesterol 76, HDL Cholesterol 35, Cholesterol/HDL Ratio 3.8 Current Medications Medications (Trade) Dose Ordered Sig/Radha Route PRN Reason Start Time Stop Time Status Last Admin Dose Admin Acetaminophen (Tylenol) 650 mg Q4H PRN ORAL fever 12/28/16 14:30 01/27/17 14:29 Al Hydroxide/Mg Hydroxide (Mylanta II) 30 ml Q6H PRN ORAL dyspepsia 12/28/16 14:30 01/27/17 14:29 Aspirin (Ecotrin) 81 mg DAILY ORAL 12/29/16 09:00 01/28/17 08:59 01/04/17 09:16 Atorvastatin Calcium (Lipitor) 40 mg BEDTIME ORAL 12/28/16 21:00 01/27/17 20:59 01/03/17 21:49 Dextrose (Dextrose 50%) STAT PRN IV Hypoglycemia 12/28/16 14:45 01/27/17 14:44 Dextrose/Sodium Chloride (D5 0.45% NS) 1,000 ml @ 75 mls/hr [id number] IV 12/28/16 17:00 01/27/17 16:59 01/04/17 09:18 Heparin Sodium (Porcine) (Heparin 5000 units/ml) 5,000 units EVERY 12 HOURS SUBQ 12/28/16 21:00 01/27/17 20:59 01/04/17 09:20 Levetiracetam 1500 mg 1,500 mg Q12HR ORAL 12/28/16 21:00 01/27/17 20:59 01/04/17 09:17 Lorazepam (Ativan 2mg/ml 1ml) 2 mg Q1H PRN IV seizures 12/28/16 15:00 01/04/17 14:59 Morphine Sulfate (Morphine Sulfate) 1 mg Q4H PRN IVP For Pain 4-12/28/16 15:30 01/04/17 15:29 12/29/16 18:28 Ondansetron HCl (Zofran) 4 mg Q6H PRN IVP Nausea & Vomiting 12/28/16 15:30 01/27/17 15:29 01/01/17 03:38 Phenytoin (Dilantin) 200 mg EVERY 12 HOURS ORAL 12/28/16 21:00 01/27/17 20:59 01/04/17 09:16 Polyethylene Glycol (Miralax) 17 gm HSPRN PRN ORAL Constipation 12/28/16 21:00 01/27/17 20:59 Valproic Acid (Depakene) 1,000 mg EVERY 12 HOURS ORAL 12/28/16 21:30 01/27/17 21:29 01/04/17 09:16 Zolpidem Tartrate (Ambien) 5 mg HSPRN PRN ORAL Insomnia 12/28/16 21:00 01/27/17 20:59 Edel Uriarte NP ([facility]anchtein) Jan 04, 2017 10:49
[2017-01-04] MEDS ORDERED: LORazepam Inj 2mg/ml 1ml IV PRN (11:00)
[2017-01-04] MEDS ORDERED: KCl 10% 40mEq/30ml liquid NG ONE (11:30)
[2017-01-04] MEDS ORDERED: Morphine Sulfate 2mg/ml Inj IVP PRN (11:30)
[2017-01-04 12:00] VITALS: BP 112/72
[2017-01-04 16:00] VITALS: BP 117/76
--- NOTE | 2017-01-04 19:56 | General Progress Note ---
Assessment/Plan Assessment/Plan Assessment - CVA - Dysphagia - Family declined PEG yesterday Recommendations - Continue TF - Await family decision re PEG Subjective Allergies: Coded Allergies: No Known Allergies (Unverified , 01/07/16) Subjective non verbal (+) NGT tolerating TF Objective Last 24 Hour Vital Signs Date Time Temp Pulse Resp B/P Pulse Ox O2 Delivery O2 Flow Rate FiO2 01/04/17 16:00 98.1 90 20 117/76 95 Room Air 01/04/17 12:00 97.4 72 19 112/72 94 Room Air 01/04/17 08:00 98.1 78 20 120/79 100 01/04/17 04:45 98.1 80 22 120/70 96 Room Air 01/04/17 00:00 98.0 95 22 125/70 95 Room Air 01/03/17 20:00 98.1 98 22 127/76 95 Room Air Intake and Output 01/03/17 01/04/17 19:00 07:00 Intake Total 900 ml 810 ml Balance 900 ml 810 ml Intake Oral 60 ml IV Total 900 ml 750 ml # Voids 2 Laboratory Tests 01/04/17 05:00: White Blood Count 7.5, Red Blood Count 4.32L, Hemoglobin 12.9L, Hematocrit 39.4L , Mean Corpuscular Volume 91, Mean Corpuscular Hemoglobin 29.9, Mean Corpuscular Hemoglobin Concent 32.8, Red Cell Distribution Width 12.5, Platelet Count 277, Mean Platelet Volume 6.7, Neutrophils (%) (Auto) 59.1, Lymphocytes (% ) (Auto) 29.0, Monocytes (%) (Auto) 9.6, Eosinophils (%) (Auto) 1.6, Basophils ( %) (Auto) 0.8, Prothrombin Time 11.4, Prothromb Time International Ratio 1.1, Activated Partial Thromboplast Time 28, Sodium Level 139, Potassium Level 3.3L, Chloride Level 98, Carbon Dioxide Level 27, Anion Gap 14, Blood Urea Nitrogen 11 , Creatinine 0.6L, Estimat Glomerular Filtration Rate > 60, Glucose Level 111H, Calcium Level 8.5L, Phosphorus Level 3.0, Magnesium Level 2.0, Total Bilirubin < 0.2, Aspartate Amino Transf (AST/SGOT) 17, Alanine Aminotransferase (ALT/SGPT ) 18, Alkaline Phosphatase 144H, Total Protein 7.7, Albumin 2.9L, Globulin 4.8, Albumin/Globulin Ratio 0.6L, Triglycerides Level 107, Cholesterol Level 132, LDL Cholesterol 76, HDL Cholesterol 35, Cholesterol/HDL Ratio 3.8 Height (Feet): 5 Height (Inches): 4.00 Weight (Pounds): 142 Objective Debilitated NCAT supple CTA RRR Soft ND NT no edema CVA NINA VASQUEZ Jan 04, 2017 19:56
[2017-01-04 20:35] VITALS: BP 128/77
[2017-01-05 00:11] VITALS: BP 113/78
[2017-01-05 04:25] VITALS: BP 139/67
[2017-01-05 07:18] LABS: EOSINOPHILS % (AUTO) 2.2 % (0.0-3.0); LYMPHOCYTES % (AUTO) 22.7 % (20.0-45.0); MEAN CORPUSCULAR HEMOGLOBIN 30.7 PG (27.0-31.0); MEAN CORPUSCULAR VOLUME 90 FL (80-99); MEAN PLATELET VOLUME 6.8 FL (6.5-10.1); MONOCYTES % (AUTO) 9.3 % (1.0-10.0); NEUTROPHILS % (AUTO) 64.8 % (45.0-75.0); PLATELET COUNT 268 K/UL (150-450); RED CELL DISTRIBUTION WIDTH 12.5 % (11.6-14.8); WHITE BLOOD COUNT 7.9 K/UL (4.8-10.8)
[2017-01-05 07:22] LABS: ANION GAP 13 (5-15); CALCIUM 8.4 mg/dL (8.6-10.2); CARBON DIOXIDE 28 mEQ/L (20-30); CHLORIDE 98 mEQ/L (98-107); CREATININE 0.6 mg/dL (0.7-1.2); GLOMERULAR FILTRATION RATE > 60 mL/min (>60); HEMOLYSIS 2; MAGNESIUM 1.9 mg/dL (1.7-2.5); POTASSIUM 3.7 mEQ/L (3.4-4.9); SODIUM 139 mEQ/L (135-145)
[2017-01-05 07:57] VITALS: BP 126/79
[2017-01-05] MEDS: Aspirin EC 81mg tab ORAL SCH (08:12)
[2017-01-05] MEDS: Heparin 5000 units/ml inj SUBQ SCH ×2 (08:12→22:59)
[2017-01-05] MEDS: Phenytoin Susp 100mg/4ml ORAL SCH (08:17)
[2017-01-05] MEDS: Valproic Acid 250mg/5ml Liquid ORAL SCH (08:17)
[2017-01-05] MEDS: levETIRAcetam 500mg/5ml Liquid ORAL SCH (08:18)
[2017-01-05] MEDS: Pantoprazole Inj IVP SCH ×2 (08:18→22:58)
[2017-01-05] MEDS ORDERED: D5 1/2NS 1000ml IV ONE (09:16)
[2017-01-05] MEDS: Sorbitol Solution UD 30ml NG PRN (09:45)
[2017-01-05] MEDS ORDERED: Sorbitol Solution UD 30ml ORAL ONE (10:00)
[2017-01-05] MEDS ORDERED: Tubing IV Secondary IV ONE (10:04)
[2017-01-05] MEDS: D5 1/2NS 1,000 ML IV SCH (11:54)
[2017-01-05 12:00] VITALS: BP 124/76
--- NOTE | 2017-01-05 13:46 | Pulmonology Progress Note ---
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 HTN hyperlipidemia multiinfarct dementia/vascular dementia dysphagia protein calorie malnutrition hypokalemia PLAN OF CARE [place] floor neuro follows CT head on 12/27 with evidence of old lacunar infarcts, but no evidence of acute intracranial pathology repeated CT head 01/02 - again rafy cute intracranial pathology seizure precautions, increased doses of Dilantin and Keppra, started on Depakote EEG fall precautions PT/OT/ST - not able to participate in PT/OT/ST activities swallow eval failed recommended NPO and non-oral feeding, on NGT feeding strict aspiration precautions IVF ASA statin GI consult re GT placement appreciated family declined GT placement at the moment, need to think for few days DVT prophylaxis replace K check prealbumin dc plan fro Saturday if family not changing decision case discussed and evaluated by supervising physician Subjective Allergies: Coded Allergies: No Known Allergies (Unverified , 01/07/16) Subjective afebrile, no leukocytosis no signs of respiratory distress family declined GT placement for a moment Objective Last 24 Hour Vital Signs Date Time Temp Pulse Resp B/P Pulse Ox O2 Delivery O2 Flow Rate FiO2 01/05/17 12:00 97.0 91 18 124/76 95 Room Air 01/05/17 07:57 97.2 97 20 126/79 95 Room Air 01/05/17 04:25 98.1 91 19 139/67 97 Room Air 01/05/17 00:11 97.9 98 18 113/78 95 Room Air 01/04/17 20:35 98.1 95 19 128/77 94 Room Air 01/04/17 16:00 98.1 90 20 117/76 95 Room Air Intake and Output 01/04/17 01/05/17 19:00 07:00 Intake Total 815 ml 995 ml Balance 815 ml 995 ml Free Water 20 ml IV Total 675 ml 975 ml Tube Feeding 140 ml # Voids 2 1 Objective General Appearance: no acute distress, arousable, poorly responsive HEENT: normocephalic, atraumatic, anicteric, other - NGT Respiratory/Chest: lungs clear, no accessory muscle use Cardiovascular: normal peripheral pulses, normal rate, regular rhythm Abdomen: soft, non tender, non distended Extremities: no edema Neurologic/Psychiatric: abnormal gait, other - poorly responsive, bedridden, Musculoskeletal: atrophy BLE Laboratory Tests 01/05/17 04:50: White Blood Count 7.9, Red Blood Count 4.20L, Hemoglobin 12.9L, Hematocrit 37.9L , Mean Corpuscular Volume 90, Mean Corpuscular Hemoglobin 30.7, Mean Corpuscular Hemoglobin Concent 34.0, Red Cell Distribution Width 12.5, Platelet Count 268, Mean Platelet Volume 6.8, Neutrophils (%) (Auto) 64.8, Lymphocytes (% ) (Auto) 22.7, Monocytes (%) (Auto) 9.3, Eosinophils (%) (Auto) 2.2, Basophils ( %) (Auto) 1.0, Sodium Level 139, Potassium Level 3.7, Chloride Level 98, Carbon Dioxide Level 28, Anion Gap 13, Blood Urea Nitrogen 11, Creatinine 0.6L, Estimat Glomerular Filtration Rate > 60, Glucose Level 134H, Calcium Level 8.4L , Magnesium Level 1.9, Prealbumin [Pending] Current Medications Medications (Trade) Dose Ordered Sig/Radha Route PRN Reason Start Time Stop Time Status Last Admin Dose Admin Acetaminophen (Tylenol) 650 mg Q4H PRN ORAL fever 12/28/16 14:30 01/27/17 14:29 Al Hydroxide/Mg Hydroxide (Mylanta II) 30 ml Q6H PRN ORAL dyspepsia 12/28/16 14:30 01/27/17 14:29 Aspirin (Ecotrin) 81 mg DAILY ORAL 12/29/16 09:00 01/28/17 08:59 01/04/17 09:16 Atorvastatin Calcium (Lipitor) 40 mg BEDTIME ORAL 12/28/16 21:00 01/27/17 20:59 01/04/17 21:34 Dextrose (Dextrose 50%) STAT PRN IV Hypoglycemia 12/28/16 14:45 01/27/17 14:44 Dextrose/Sodium Chloride (D5 0.45% NS) 1,000 ml @ 75 mls/hr [id number] IV 12/28/16 17:00 01/27/17 16:59 01/05/17 11:54 Heparin Sodium (Porcine) (Heparin 5000 units/ml) 5,000 units EVERY 12 HOURS SUBQ 12/28/16 21:00 01/27/17 20:59 01/04/17 21:36 Levetiracetam 1500 mg 1,500 mg Q12HR ORAL 12/28/16 21:00 01/27/17 20:59 01/05/17 08:18 Lorazepam (Ativan 2mg/ml 1ml) 2 mg Q1H PRN IV seizures 01/04/17 11:00 01/11/17 10:59 Morphine Sulfate (Morphine Sulfate) 1 mg Q4H PRN IVP For Pain 4-01/04/17 11:30 01/11/17 11:29 Ondansetron HCl (Zofran) 4 mg Q6H PRN IVP Nausea & Vomiting 12/28/16 15:30 01/27/17 15:29 01/01/17 03:38 Pantoprazole (Protonix) 40 mg EVERY 12 HOURS IVP 01/05/17 09:00 02/04/17 08:59 01/05/17 08:18 Phenytoin (Dilantin) 200 mg EVERY 12 HOURS ORAL 12/28/16 21:00 01/27/17 20:59 01/05/17 08:17 Polyethylene Glycol (Miralax) 17 gm HSPRN PRN ORAL Constipation 12/28/16 21:00 01/27/17 20:59 Sorbitol (Sorbitol) 30 ml Q8H PRN NG constipation 01/05/17 09:45 02/04/17 09:44 Valproic Acid (Depakene) 1,000 mg EVERY 12 HOURS ORAL 12/28/16 21:30 01/27/17 21:29 01/05/17 08:17 Zolpidem Tartrate (Ambien) 5 mg HSPRN PRN ORAL Insomnia 12/28/16 21:00 01/27/17 20:59 [facility]Edel NP Jan 05, 2017 13:46
[2017-01-05 16:00] VITALS: BP 131/83
[2017-01-05 20:00] VITALS: BP 134/76
--- NOTE | 2017-01-05 20:32 | General Progress Note ---
Assessment/Plan Assessment/Plan Assessment - CVA - Dysphagia - Family declined PEG yesterday - ? coffee ground NGT aspirate Recommendations - TF on hold - PPI - check stool OB - watch for ? melena - monitor CBC - Await family decision re PEG Subjective Allergies: Coded Allergies: No Known Allergies (Unverified , 01/07/16) Subjective non verbal (+) NGT RN reported dark NGT aspirate earlier currently appears dark brown no melena TF held Objective Last 24 Hour Vital Signs Date Time Temp Pulse Resp B/P Pulse Ox O2 Delivery O2 Flow Rate FiO2 01/05/17 16:00 97.0 107 18 131/83 97 Room Air 01/05/17 12:00 97.0 91 18 124/76 95 Room Air 01/05/17 07:57 97.2 97 20 126/79 95 Room Air 01/05/17 04:25 98.1 91 19 139/67 97 Room Air 01/05/17 00:11 97.9 98 18 113/78 95 Room Air 01/04/17 20:35 98.1 95 19 128/77 94 Room Air Intake and Output 01/04/17 01/05/17 19:00 07:00 Intake Total 815 ml 995 ml Balance 815 ml 995 ml Free Water 20 ml IV Total 675 ml 975 ml Tube Feeding 140 ml # Voids 2 1 Laboratory Tests 01/05/17 04:50: White Blood Count 7.9, Red Blood Count 4.20L, Hemoglobin 12.9L, Hematocrit 37.9L , Mean Corpuscular Volume 90, Mean Corpuscular Hemoglobin 30.7, Mean Corpuscular Hemoglobin Concent 34.0, Red Cell Distribution Width 12.5, Platelet Count 268, Mean Platelet Volume 6.8, Neutrophils (%) (Auto) 64.8, Lymphocytes (% ) (Auto) 22.7, Monocytes (%) (Auto) 9.3, Eosinophils (%) (Auto) 2.2, Basophils ( %) (Auto) 1.0, Sodium Level 139, Potassium Level 3.7, Chloride Level 98, Carbon Dioxide Level 28, Anion Gap 13, Blood Urea Nitrogen 11, Creatinine 0.6L, Estimat Glomerular Filtration Rate > 60, Glucose Level 134H, Calcium Level 8.4L , Magnesium Level 1.9, Prealbumin [Pending] Height (Feet): 5 Height (Inches): 4.00 Weight (Pounds): 142 Objective Debilitated NCAT supple CTA RRR Soft ND NT no edema CVA NINA VASQUEZ Jan 05, 2017 20:32
[2017-01-06] VITALS (7 sets, daily range): BP systolic 122–135; BP diastolic 73–80
[2017-01-06] MEDS: Phenytoin Susp 100mg/4ml ORAL SCH ×3 (00:27→21:49)
[2017-01-06] MEDS: Valproic Acid 250mg/5ml Liquid ORAL SCH ×3 (00:28→21:48)
[2017-01-06] MEDS: levETIRAcetam 500mg/5ml Liquid ORAL SCH ×3 (00:28→21:49)
[2017-01-06] MEDS: D5 1/2NS 1,000 ML IV SCH ×2 (00:29→14:49)
[2017-01-06 07:14] LABS: LYMPHOCYTES % (AUTO) 25.7 % (20.0-45.0); MEAN CORPUSCULAR HEMOGLOBIN 30.2 PG (27.0-31.0); MEAN CORPUSCULAR VOLUME 91 FL (80-99); MEAN PLATELET VOLUME 6.4 FL (6.5-10.1); MONOCYTES % (AUTO) 10.4 % (1.0-10.0); NEUTROPHILS % (AUTO) 60.4 % (45.0-75.0); PLATELET COUNT 203 K/UL (150-450); RED BLOOD COUNT 4.56 M/UL (4.70-6.10); RED CELL DISTRIBUTION WIDTH 12.7 % (11.6-14.8); WHITE BLOOD COUNT 8.2 K/UL (4.8-10.8)
[2017-01-06 07:15] LABS: BASOPHILS % (AUTO) 1.2 % (0.0-2.0); EOSINOPHILS % (AUTO) 2.4 % (0.0-3.0)
[2017-01-06 07:39] LABS: HEMOLYSIS 14; IRON 54 ug/dL (59-158); TOTAL IRON BINDING CAPACITY 257 ug/dL (250-400)
[2017-01-06] MEDS: Heparin 5000 units/ml inj SUBQ SCH ×2 (08:17→20:27)
[2017-01-06] MEDS: Sorbitol Solution UD 30ml NG PRN (08:18)
[2017-01-06] MEDS: Aspirin EC 81mg tab ORAL SCH (08:18)
[2017-01-06] MEDS: Pantoprazole Inj IVP SCH ×2 (08:21→21:49)
--- NOTE | 2017-01-06 09:24 | Diagnostic Imaging Report ---
Indication: NG tube placement Technique: XRAY ABDOMEN 1VIEW/KUB Comparison: 01/04/2017. Findings: Again seen is a nasogastric tube in the stomach. Bowel gas pattern is nonobstructive. There is no change from previous exam. Impression: NG tube in the stomach. No acute abnormality.
[2017-01-06] MEDS ORDERED: Fleet's Enema 133ml RECTAL PRN (09:45)
--- NOTE | 2017-01-06 12:38 | Pulmonology Progress Note ---
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 melena stool OB+ PLAN OF CARE [place] floor neuro follows CT head on 12/27 with evidence of old lacunar infarcts, but no evidence of acute intracranial pathology repeated CT head 01/02 - again rafy cute intracranial pathology seizure precautions, increased doses of Dilantin and Keppra, continue Depakote EEG per neuro discretion fall precautions PT/OT/ST - not able to participate in PT/OT/ST activities swallow eval failed recommended NPO and non-oral feeding, on NGT feeding strict aspiration precautions IVF ASA , statin GI consult re GT placement appreciated family agreed today to GT placement plan placement as per GI DVT prophylaxis episode of ? coffee ground aspirate from NGT , HH stable, GI put NG TF on hold, no further episodes of melena, restarted TF stool OB + HH remains stable case discussed and evaluated by supervising physician Subjective Allergies: Coded Allergies: No Known Allergies (Unverified , 01/07/16) Subjective afebrile, no leukocytosis no signs of respiratory distress family decided today on GT placement Objective Last 24 Hour Vital Signs Date Time Temp Pulse Resp B/P Pulse Ox O2 Delivery O2 Flow Rate FiO2 01/06/17 07:46 97.5 107 18 122/73 94 Room Air 01/06/17 04:00 97.9 105 20 131/77 Room Air 01/06/17 00:00 97.9 102 18 135/78 96 Room Air 01/05/17 20:00 98.1 104 20 134/76 94 Room Air 01/05/17 16:00 97.0 107 18 131/83 97 Room Air Intake and Output 01/05/17 01/06/17 19:00 07:00 Intake Total 870 ml 1105 ml Balance 870 ml 1105 ml Free Water 20 ml IV Total 750 ml 825 ml Tube Feeding 120 ml 260 ml # Voids 3 3 # Bowel Movements 2 Objective General Appearance: no acute distress, arousable, poorly responsive HEENT: normocephalic, atraumatic, anicteric, other - NGT Respiratory/Chest: lungs clear, no accessory muscle use Cardiovascular: normal peripheral pulses, normal rate, regular rhythm Abdomen: soft, non tender, non distended Extremities: no edema Neurologic/Psychiatric: abnormal gait, other - poorly responsive, bedridden, Musculoskeletal: atrophy BLE Laboratory Tests 01/06/17 04:50: White Blood Count 8.2, Red Blood Count 4.56L, Hemoglobin 13.8L, Hematocrit 41.6L , Mean Corpuscular Volume 91, Mean Corpuscular Hemoglobin 30.2, Mean Corpuscular Hemoglobin Concent 33.0, Red Cell Distribution Width 12.7, Platelet Count 203, Mean Platelet Volume 6.4L, Neutrophils (%) (Auto) 60.4, Lymphocytes ( %) (Auto) 25.7, Monocytes (%) (Auto) 10.4H, Eosinophils (%) (Auto) 2.4, Basophils (%) (Auto) 1.2, Iron Level 54L, Total Iron Binding Capacity 257, Percent Iron Saturation 21, Unsaturated Iron Binding 203 01/06/17 08:50: Stool Occult Blood Positive Current Medications Medications (Trade) Dose Ordered Sig/Radha Route PRN Reason Start Time Stop Time Status Last Admin Dose Admin Acetaminophen (Tylenol) 650 mg Q4H PRN ORAL fever 12/28/16 14:30 01/27/17 14:29 Al Hydroxide/Mg Hydroxide (Mylanta II) 30 ml Q6H PRN ORAL dyspepsia 12/28/16 14:30 01/27/17 14:29 Aspirin (Ecotrin) 81 mg DAILY ORAL 12/29/16 09:00 01/28/17 08:59 01/06/17 08:18 Atorvastatin Calcium (Lipitor) 40 mg BEDTIME ORAL 12/28/16 21:00 01/27/17 20:59 01/06/17 00:28 Dextrose (Dextrose 50%) STAT PRN IV Hypoglycemia 12/28/16 14:45 01/27/17 14:44 Dextrose/Sodium Chloride (D5 0.45% NS) 1,000 ml @ 75 mls/hr [id number] IV 12/28/16 17:00 01/27/17 16:59 01/06/17 00:29 Heparin Sodium (Porcine) (Heparin 5000 units/ml) 5,000 units EVERY 12 HOURS SUBQ 12/28/16 21:00 01/27/17 20:59 01/06/17 08:17 Levetiracetam 1500 mg 1,500 mg Q12HR ORAL 12/28/16 21:00 01/27/17 20:59 01/06/17 08:17 Lorazepam (Ativan 2mg/ml 1ml) 2 mg Q1H PRN IV seizures 01/04/17 11:00 01/11/17 10:59 Morphine Sulfate (Morphine Sulfate) 1 mg Q4H PRN IVP For Pain 4-01/04/17 11:30 01/11/17 11:29 Ondansetron HCl (Zofran) 4 mg Q6H PRN IVP Nausea & Vomiting 12/28/16 15:30 01/27/17 15:29 01/01/17 03:38 Pantoprazole (Protonix) 40 mg EVERY 12 HOURS IVP 01/05/17 09:00 02/04/17 08:59 01/06/17 08:21 Phenytoin (Dilantin) 200 mg EVERY 12 HOURS ORAL 12/28/16 21:00 01/27/17 20:59 01/06/17 08:17 Polyethylene Glycol (Miralax) 17 gm HSPRN PRN ORAL Constipation 12/28/16 21:00 01/27/17 20:59 Sodium Phosphate (Fleet's Sodium Phosl Enema) 133 ml DAILYPRN PRN RECTAL constipation 01/06/17 09:45 02/05/17 09:44 Sorbitol (Sorbitol) 30 ml Q8H PRN NG constipation 01/05/17 09:45 02/04/17 09:44 01/06/17 08:18 Valproic Acid (Depakene) 1,000 mg EVERY 12 HOURS ORAL 12/28/16 21:30 01/27/17 21:29 01/06/17 08:17 Zolpidem Tartrate (Ambien) 5 mg HSPRN PRN ORAL Insomnia 12/28/16 21:00 01/27/17 20:59 Edel Uriarte NP ([facility]) Jan 06, 2017 12:38
--- NOTE | 2017-01-06 21:09 | General Progress Note ---
Assessment/Plan Assessment/Plan Assessment - CVA - Dysphagia - OB (+) stools - Anemia Recommendations - PPI - monitor CBC - EGD/PEG in am Subjective Allergies: Coded Allergies: No Known Allergies (Unverified , 01/07/16) Subjective non verbal (+) NGT (+) OB no melena Objective Last 24 Hour Vital Signs Date Time Temp Pulse Resp B/P Pulse Ox O2 Delivery O2 Flow Rate FiO2 01/06/17 16:00 98.0 110 19 130/75 97 Room Air 01/06/17 12:00 98.2 108 19 127/76 97 Room Air 01/06/17 07:46 97.5 107 18 122/73 94 Room Air 01/06/17 04:00 97.9 105 20 131/77 Room Air 01/06/17 00:00 97.9 102 18 135/78 96 Room Air Intake and Output 01/05/17 01/06/17 19:00 07:00 Intake Total 870 ml 1055 ml Balance 870 ml 1055 ml Free Water 20 ml IV Total 750 ml 825 ml Tube Feeding 120 ml 210 ml # Voids 3 3 # Bowel Movements 2 Laboratory Tests 01/06/17 04:50: White Blood Count 8.2, Red Blood Count 4.56L, Hemoglobin 13.8L, Hematocrit 41.6L , Mean Corpuscular Volume 91, Mean Corpuscular Hemoglobin 30.2, Mean Corpuscular Hemoglobin Concent 33.0, Red Cell Distribution Width 12.7, Platelet Count 203, Mean Platelet Volume 6.4L, Neutrophils (%) (Auto) 60.4, Lymphocytes ( %) (Auto) 25.7, Monocytes (%) (Auto) 10.4H, Eosinophils (%) (Auto) 2.4, Basophils (%) (Auto) 1.2, Iron Level 54L, Total Iron Binding Capacity 257, Percent Iron Saturation 21, Unsaturated Iron Binding 203 01/06/17 08:50: Stool Occult Blood Positive Height (Feet): 5 Height (Inches): 4.00 Weight (Pounds): 142 Objective Debilitated NCAT supple CTA RRR Soft ND NT no edema CVA NINA VASQUEZ Jan 06, 2017 21:09
[2017-01-07] VITALS (10 sets, daily range): BP systolic 104–141; BP diastolic 63–84
[2017-01-07] MEDS: D5 1/2NS 1,000 ML IV SCH ×3 (03:40→21:00)
[2017-01-07 06:30] LABS: BASOPHILS % (AUTO) 1.4 % (0.0-2.0); EOSINOPHILS % (AUTO) 4.3 % (0.0-3.0); LYMPHOCYTES % (AUTO) 25.1 % (20.0-45.0); MEAN CORPUSCULAR HEMOGLOBIN 30.5 PG (27.0-31.0); MEAN CORPUSCULAR HGB CONC 33.6 G/DL (32.0-36.0); MEAN CORPUSCULAR VOLUME 91 FL (80-99); MEAN PLATELET VOLUME 7.1 FL (6.5-10.1); MONOCYTES % (AUTO) 10.2 % (1.0-10.0); NEUTROPHILS % (AUTO) 59.1 % (45.0-75.0); PLATELET COUNT 272 K/UL (150-450); RED BLOOD COUNT 4.11 M/UL (4.70-6.10); RED CELL DISTRIBUTION WIDTH 12.5 % (11.6-14.8); WHITE BLOOD COUNT 7.9 K/UL (4.8-10.8)
[2017-01-07 07:18] LABS: ANION GAP 12 (5-15); CALCIUM 8.4 mg/dL (8.6-10.2); CARBON DIOXIDE 29 mEQ/L (20-30); CHLORIDE 100 mEQ/L (98-107); CREATININE 0.6 mg/dL (0.7-1.2); GLOMERULAR FILTRATION RATE > 60 mL/min (>60); HEMOLYSIS 0; POTASSIUM 3.4 mEQ/L (3.4-4.9); SODIUM 141 mEQ/L (135-145)
[2017-01-07] MEDS: Aspirin EC 81mg tab ORAL SCH (09:00)
[2017-01-07] MEDS: Heparin 5000 units/ml inj SUBQ SCH ×2 (09:00→21:00)
[2017-01-07] MEDS: Valproic Acid 250mg/5ml Liquid ORAL SCH ×2 (09:22→21:33)
[2017-01-07] MEDS: Phenytoin Susp 100mg/4ml ORAL SCH ×2 (09:22→21:33)
[2017-01-07] MEDS: levETIRAcetam 500mg/5ml Liquid ORAL SCH ×2 (09:22→21:34)
[2017-01-07] MEDS: Pantoprazole Inj IVP SCH ×2 (09:59→21:32)
--- NOTE | 2017-01-07 11:55 | Pre-Procedure Note/Attestation ---
Pre-Procedure Note/Attestation Complete Prior to Procedure Planned Procedure: not applicable Procedure Narrative: egd/peg Indications for Procedure Pre-Operative Diagnosis: dysphagia Attestation I attest that I discussed the nature of the procedure; its benefits; risks and complications; and alternatives (and the risks and benefits of such alternatives ), prior to the procedure, with the patient (or the patient's legal sales representative wire rope). I attest that, if there was a reasonable possibility of needing a blood transfusion, the patient (or the patient's legal sales representative wire rope) was given the [facility] standardized written summary, pursuant to the [place] Blood Safety Act ([place] Health and Safety Code # 1645, as amended). I attest that I re-evaluated the patient just prior to the surgery and that there has been no change in the patient's H&P, except as documented below: MIKE BORREGO Jan 07, 2017 11:55
[2017-01-07] MEDS ORDERED: fentaNYL 100 mcg/2 mL IV ONE (12:00)
[2017-01-07] MEDS ORDERED: Midazolam 2mg/2ml Inj ONE (12:00)
[2017-01-07] MEDS ORDERED: Propofol 10mg/ml 20ml IV ONE (12:00)
[2017-01-07] MEDS ORDERED: NS 550ML IV ONE (12:13)
[2017-01-07] MEDS ORDERED: cefOXitin 1gm Inj IM ONE (12:17)
--- NOTE | 2017-01-07 12:45 | Immediate Post-Op Evaluation ---
Immediate Post-Op Evalulation Immediate Post-Op Evalulation Procedure: EGD PEG tube placement Date of Evaluation: Jan 07, 2017 Time of Evaluation: 12:43 IV Fluids: 500 Blood Products: none Estimated Blood Loss: min Urinary Output: none Blood Pressure Systolic: 122 Blood Pressure Diastolic: 78 Pulse Rate: 91 Respiratory Rate: 20 O2 Sat by Pulse Oximetry: 99 Temperature (Fahrenheit): 98.4 Pain Score (1-10): 1 Nausea: No Vomiting: No Complications none Patient Status: reacts, patent, none Hydration Status: adequate TIKA MIR M.D. Jan 07, 2017 12:45
--- NOTE | 2017-01-07 13:16 | Endoscopy Procedure Note ---
Endoscopy Procedure Note Indication for Procedure: dysphagia Procedures Performed: EGD, PEG Operative Findings/Diagnosis: same Specimen: none Pt Tolerated Procedure Well: Yes Estimated Blood Loss: none Anesthesiologist: leida Anesthesia: MAC Implant(s) used?: No 50 yrs or older w/o bx or poly: Not Applicable 10yrs. F/U not recommended: Not Applicable MIKE BORREGO Jan 07, 2017 13:16
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
--- NOTE | 2017-01-07 13:47 | 48 Hour Post Anesthesia Eval ---
Post Anesthesia Evaluation Procedure: EGD PEG tube placement Date of Evaluation: Jan 07, 2017 Time of Evaluation: 13:46 Blood Pressure Systolic: 143 0: 74 Pulse Rate: 86 Respiratory Rate: 24 Temperature (Fahrenheit): 97.6 O2 Sat by Pulse Oximetry: 98 Airway: patent Nausea: No Vomiting: No Pain Intensity: 1 Hydration Status: adequate Cardiopulmonary Status: stable Mental Status/LOC: patient returned to baseline Follow-up Care/Observations: n/a Post-Anesthesia Complications: none Follow-up care needed: N/A TIKA MIR M.D. Jan 07, 2017 13:47
--- NOTE | 2017-01-07 22:07 | Procedure Note ---
DATE OF PROCEDURE: 01/07/2017 SURGEON: Wilian Campoverde M.D. PROCEDURE: Upper endoscopy with PEG placement. ANESTHESIOLOGIST: Prieto Moreno M.D. INSTRUMENT: Olympus adult flexible upper endoscope. INDICATION: Dysphagia. REASON FOR PROCEDURE: The procedure, risks, benefits, and possible consequences, including hemorrhage, aspiration, perforation and infection, and alternative treatments, were explained to the patient/legal guardian by Dr. Wilian Campoverde and the patient/legal guardian understood and accepted these risks. DESCRIPTION OF PROCEDURE: After informed consent was obtained and the patient was adequately sedated, the Olympus upper endoscope was advanced from mouth into the second portion of the duodenum and retroflexion was performed in the stomach. Then under endoscopic guidance and under sterile condition, a 20-Macedonian pull type of G-tube was successfully placed in the epigastric area. The distance from the tip of the tube to skin was 3 cm in size. The patient tolerated the procedure very well without any complication. SUMMARY OF FINDINGS: Status post successful percutaneous endoscopic gastrostomy placement. RECOMMENDATIONS: 1. Abdominal binder. 2. Elevate the head of the bed at all times. 3. G-tube flush. 4. G-tube care. 5. Start tube feeding later today. 6. The patient received a dose of antibiotics prior to this procedure. I want to thank, Dr. Chase, for this kind referral. Wilian Campoverde M.D. DR: SERINA JOB#: [id number] CC: Alli Chase M.D.
--- NOTE | 2017-01-07 22:24 | Pulmonology Progress Note ---
Assessment/Plan Problems: (1) Multi-infarct dementia (2) Uncontrolled seizures (3) Status post stroke (4) DM (diabetes mellitus) Assessment/Plan Neuro f/u adjust seizure meds pt/ot family refusing feeding tube and correction placement Subjective ROS Limited/Unobtainable: Yes Allergies: Coded Allergies: No Known Allergies (Unverified , 01/07/16) Objective Last 24 Hour Vital Signs Date Time Temp Pulse Resp B/P Pulse Ox O2 Delivery O2 Flow Rate FiO2 01/07/17 20:00 102.2 123 18 141/80 96 Room Air 01/07/17 16:00 98.4 90 18 104/63 94 Room Air 01/07/17 13:49 98.0 98 20 132/77 94 Room Air 01/07/17 13:47 86 24 98 01/07/17 13:15 87 20 135/80 98 Nasal Cannula 2.0 01/07/17 13:00 89 20 128/80 98 Nasal Cannula 2.0 01/07/17 12:48 89 20 120/77 98 Nasal Cannula 2.0 01/07/17 12:45 91 20 99 01/07/17 12:43 90 20 118/75 98 Nasal Cannula 2.0 01/07/17 12:38 98.4 91 20 119/75 99 Nasal Cannula 2.0 01/07/17 08:57 97.2 82 18 112/77 95 Room Air 01/07/17 04:00 98.2 102 18 129/84 94 Room Air 01/07/17 00:09 104 01/06/17 23:42 99.7 109 19 122/80 93 Room Air Intake and Output 01/06/17 01/07/17 19:00 07:00 Intake Total 1170 ml 675 ml Balance 1170 ml 675 ml IV Total 750 ml 675 ml Tube Feeding 420 ml # Voids 2 # Bowel Movements 2 Objective General Appearance: WD/WN Lines, tubes and drains: peripheral, HEENT: normocephalic, atraumatic Neck: non-tender, normal alignment Respiratory/Chest: chest wall non-tender, lungs clear Heart: regular Ext: nos C/C/E Laboratory Tests 01/07/17 05:15: White Blood Count 7.9, Red Blood Count 4.11L, Hemoglobin 12.5L, Hematocrit 37.3L , Mean Corpuscular Volume 91, Mean Corpuscular Hemoglobin 30.5, Mean Corpuscular Hemoglobin Concent 33.6, Red Cell Distribution Width 12.5, Platelet Count 272, Mean Platelet Volume 7.1, Neutrophils (%) (Auto) 59.1, Lymphocytes (% ) (Auto) 25.1, Monocytes (%) (Auto) 10.2H, Eosinophils (%) (Auto) 4.3H, Basophils (%) (Auto) 1.4, Sodium Level 141, Potassium Level 3.4, Chloride Level 100, Carbon Dioxide Level 29, Anion Gap 12, Blood Urea Nitrogen 9, Creatinine 0.6L, Estimat Glomerular Filtration Rate > 60, Glucose Level 122H, Calcium Level 8.4L Current Medications Medications (Trade) Dose Ordered Sig/Radha Route PRN Reason Start Time Stop Time Status Last Admin Dose Admin Acetaminophen (Tylenol) 650 mg Q4H PRN ORAL fever 12/28/16 14:30 01/27/17 14:29 01/07/17 19:35 Al Hydroxide/Mg Hydroxide (Mylanta II) 30 ml Q6H PRN ORAL dyspepsia 12/28/16 14:30 01/27/17 14:29 Aspirin (Ecotrin) 81 mg DAILY ORAL 12/29/16 09:00 01/28/17 08:59 01/06/17 08:18 Atorvastatin Calcium (Lipitor) 40 mg BEDTIME ORAL 12/28/16 21:00 01/27/17 20:59 01/07/17 21:35 Dextrose (Dextrose 50%) STAT PRN IV Hypoglycemia 12/28/16 14:45 01/27/17 14:44 Dextrose/Sodium Chloride (D5 0.45% NS) 1,000 ml @ 75 mls/hr [id number] IV 12/28/16 17:00 01/27/17 16:59 01/07/17 06:54 Heparin Sodium (Porcine) (Heparin 5000 units/ml) 5,000 units EVERY 12 HOURS SUBQ 12/28/16 21:00 01/27/17 20:59 01/06/17 08:17 Levetiracetam 1500 mg 1,500 mg Q12HR ORAL 12/28/16 21:00 01/27/17 20:59 01/07/17 21:34 Lorazepam (Ativan 2mg/ml 1ml) 2 mg Q1H PRN IV seizures 01/04/17 11:00 01/11/17 10:59 Morphine Sulfate (Morphine Sulfate) 1 mg Q4H PRN IVP For Pain 4-01/04/17 11:30 01/11/17 11:29 Ondansetron HCl (Zofran) 4 mg Q6H PRN IVP Nausea & Vomiting 12/28/16 15:30 01/27/17 15:29 01/01/17 03:38 Pantoprazole (Protonix) 40 mg EVERY 12 HOURS IVP 01/05/17 09:00 02/04/17 08:59 01/07/17 21:32 Phenytoin (Dilantin) 200 mg EVERY 12 HOURS ORAL 12/28/16 21:00 01/27/17 20:59 01/07/17 21:33 Polyethylene Glycol (Miralax) 17 gm HSPRN PRN ORAL Constipation 12/28/16 21:00 01/27/17 20:59 Sodium Phosphate (Fleet's Sodium Phosl Enema) 133 ml DAILYPRN PRN RECTAL constipation 01/06/17 09:45 02/05/17 09:44 Sorbitol (Sorbitol) 30 ml Q8H PRN NG constipation 01/05/17 09:45 02/04/17 09:44 01/06/17 08:18 Valproic Acid (Depakene) 1,000 mg EVERY 12 HOURS ORAL 12/28/16 21:30 01/27/17 21:29 01/07/17 21:33 Zolpidem Tartrate (Ambien) 5 mg HSPRN PRN ORAL Insomnia 12/28/16 21:00 01/27/17 20:59 LUKE ANDINO Jan 07, 2017 22:24
[2017-01-08] VITALS: BP 123/67
[2017-01-08 04:00] VITALS: BP 119/75
[2017-01-08 06:53] LABS: BASOPHILS % (AUTO) 1.1 % (0.0-2.0); EOSINOPHILS % (AUTO) 0.4 % (0.0-3.0); LYMPHOCYTES % (AUTO) 12.3 % (20.0-45.0); MEAN CORPUSCULAR HEMOGLOBIN 30.5 PG (27.0-31.0); MEAN CORPUSCULAR HGB CONC 33.6 G/DL (32.0-36.0); MEAN CORPUSCULAR VOLUME 91 FL (80-99); MEAN PLATELET VOLUME 6.9 FL (6.5-10.1); MONOCYTES % (AUTO) 7.3 % (1.0-10.0); NEUTROPHILS % (AUTO) 78.9 % (45.0-75.0); PLATELET COUNT 275 K/UL (150-450); RED CELL DISTRIBUTION WIDTH 12.6 % (11.6-14.8); WHITE BLOOD COUNT 13.8 K/UL (4.8-10.8)
[2017-01-08 07:09] LABS: ANION GAP 11 (5-15); CALCIUM 8.7 mg/dL (8.6-10.2); CARBON DIOXIDE 28 mEQ/L (20-30); CHLORIDE 97 mEQ/L (98-107); CREATININE 0.7 mg/dL (0.7-1.2); GLOMERULAR FILTRATION RATE > 60 mL/min (>60); HEMOLYSIS 2; POTASSIUM 3.8 mEQ/L (3.4-4.9); SODIUM 136 mEQ/L (135-145)
[2017-01-08 08:00] VITALS: BP 125/72
[2017-01-08] MEDS: Valproic Acid 250mg/5ml Liquid ORAL SCH ×2 (08:34→20:46)
[2017-01-08] MEDS: Phenytoin Susp 100mg/4ml ORAL SCH ×2 (08:35→20:52)
[2017-01-08] MEDS: Aspirin EC 81mg tab ORAL SCH (08:35)
[2017-01-08] MEDS: levETIRAcetam 500mg/5ml Liquid ORAL SCH ×2 (08:35→20:45)
[2017-01-08] MEDS: Heparin 5000 units/ml inj SUBQ SCH ×2 (08:36→21:08)
[2017-01-08] MEDS: Pantoprazole Inj IVP SCH ×2 (10:02→20:44)
--- NOTE | 2017-01-08 10:59 | GI Progress Note ---
Assessment/Plan Problems: (1) Encounter for PEG (percutaneous endoscopic gastrostomy) ICD Codes: Z43.1 - Encounter for attention to gastrostomy SNOMED: 367836608, 608095467 (2) DM (diabetes mellitus) ICD Codes: E11.9 - Type 2 diabetes mellitus without complications SNOMED: 80412734 (3) Anemia ICD Codes: D64.9 - Anemia, unspecified SNOMED: 247933696 (4) Uncontrolled seizures ICD Codes: R56.9 - Unspecified convulsions SNOMED: 73622519 (5) Seizure disorder ICD Codes: G40.909 - Epilepsy, unspecified, not intractable, without status epilepticus SNOMED: 744747430 Status: stable Status Narrative Discussed with Dr. Campoverde. Assessment/Plan Status post successful percutaneous endoscopic gastrostomy placement. RECOMMENDATIONS: ok for DC per GI standpoint 1. Abdominal binder. 2. Elevate the head of the bed at all times. 3. G-tube flush. 4. G-tube care. 5. GTFs, tolerating 6. The patient received a dose of antibiotics prior to this procedure. Subjective Subjective limited Objective Last 24 Hour Vital Signs Date Time Temp Pulse Resp B/P Pulse Ox O2 Delivery O2 Flow Rate FiO2 01/08/17 08:00 98.8 110 18 125/72 92 Room Air 01/08/17 04:00 99.4 111 18 119/75 91 Room Air 01/08/17 00:00 99.9 112 18 123/67 94 Room Air 01/07/17 20:34 99.0 01/07/17 20:00 102.2 123 18 141/80 96 Room Air 01/07/17 16:00 98.4 90 18 104/63 94 Room Air 01/07/17 13:49 98.0 98 20 132/77 94 Room Air 01/07/17 13:47 86 24 98 01/07/17 13:15 87 20 135/80 98 Nasal Cannula 2.0 01/07/17 13:00 89 20 128/80 98 Nasal Cannula 2.0 01/07/17 12:48 89 20 120/77 98 Nasal Cannula 2.0 01/07/17 12:45 91 20 99 01/07/17 12:43 90 20 118/75 98 Nasal Cannula 2.0 01/07/17 12:38 98.4 91 20 119/75 99 Nasal Cannula 2.0 Intake and Output 01/07/17 01/08/17 19:00 07:00 Intake Total 1065 ml 750 ml Balance 1065 ml 750 ml Free Water 90 ml IV Total 825 ml 750 ml Tube Feeding 150 ml # Voids 2 4 Laboratory Tests Test 01/08/17 05:20 White Blood Count 13.8 K/UL (4.8-10.8) #H Red Blood Count 4.00 M/UL (4.70-6.10) L Hemoglobin 12.2 G/DL (14.2-18.0) L Hematocrit 36.3 % (42.0-52.0) L Mean Corpuscular Volume 91 FL (80-99) Mean Corpuscular Hemoglobin 30.5 PG (27.0-31.0) Mean Corpuscular Hemoglobin Concent 33.6 G/DL (32.0-36.0) Red Cell Distribution Width 12.6 % (11.6-14.8) Platelet Count 275 K/UL (150-450) Mean Platelet Volume 6.9 FL (6.5-10.1) Neutrophils (%) (Auto) 78.9 % (45.0-75.0) H Lymphocytes (%) (Auto) 12.3 % (20.0-45.0) L Monocytes (%) (Auto) 7.3 % (1.0-10.0) Eosinophils (%) (Auto) 0.4 % (0.0-3.0) Basophils (%) (Auto) 1.1 % (0.0-2.0) Sodium Level 136 mEQ/L (135-145) Potassium Level 3.8 mEQ/L (3.4-4.9) Chloride Level 97 mEQ/L (98-107) L Carbon Dioxide Level 28 mEQ/L (20-30) Anion Gap 11 (5-15) Blood Urea Nitrogen 12 mg/dL (7-23) Creatinine 0.7 mg/dL (0.7-1.2) Estimat Glomerular Filtration Rate > 60 mL/min (>60) Glucose Level 145 mg/dL (74-106) H Calcium Level 8.7 mg/dL (8.6-10.2) Height (Feet): 5 Height (Inches): 3.00 Weight (Pounds): 142 General Appearance: no apparent distress, alert Cardiovascular: normal rate Respiratory/Chest: no respiratory distress Abdominal Exam: non tender, soft, GT site - c/d/i Fe Rao N.P. Jan 08, 2017 10:59
[2017-01-08 11:57] VITALS: BP 124/76
[2017-01-08 16:00] VITALS: BP 140/85
--- NOTE | 2017-01-08 18:42 | Pulmonology Progress Note ---
Assessment/Plan Problems: (1) Multi-infarct dementia (2) Uncontrolled seizures (3) Status post stroke (4) DM (diabetes mellitus) Assessment/Plan Neuro f/u adjust seizure meds pt/ot Gtube placed yesterday tolerating diet Subjective ROS Limited/Unobtainable: No Constitutional: Reports: no symptoms Allergies: Coded Allergies: No Known Allergies (Unverified , 01/07/16) Objective Last 24 Hour Vital Signs Date Time Temp Pulse Resp B/P Pulse Ox O2 Delivery O2 Flow Rate FiO2 01/08/17 16:00 98.2 105 18 140/85 94 Nasal Cannula 01/08/17 11:57 98.4 105 18 124/76 92 Room Air 01/08/17 08:00 98.8 110 18 125/72 92 Room Air 01/08/17 04:00 99.4 111 18 119/75 91 Room Air 01/08/17 00:00 99.9 112 18 123/67 94 Room Air 01/07/17 20:34 99.0 01/07/17 20:00 102.2 123 18 141/80 96 Room Air Intake and Output 01/07/17 01/08/17 19:00 07:00 Intake Total 1065 ml 885 ml Balance 1065 ml 885 ml Free Water 90 ml IV Total 825 ml 825 ml Tube Feeding 150 ml 60 ml # Voids 2 4 Objective General Appearance: WD/WN Lines, tubes and drains: peripheral, HEENT: normocephalic, atraumatic Neck: non-tender, normal alignment Respiratory/Chest: chest wall non-tender, lungs clear Heart: regular Ext: nos C/C/E Laboratory Tests 01/08/17 05:20: White Blood Count 13.8#H, Red Blood Count 4.00L, Hemoglobin 12.2L, Hematocrit 36.3L, Mean Corpuscular Volume 91, Mean Corpuscular Hemoglobin 30.5, Mean Corpuscular Hemoglobin Concent 33.6, Red Cell Distribution Width 12.6, Platelet Count 275, Mean Platelet Volume 6.9, Neutrophils (%) (Auto) 78.9H, Lymphocytes ( %) (Auto) 12.3L, Monocytes (%) (Auto) 7.3, Eosinophils (%) (Auto) 0.4, Basophils (%) (Auto) 1.1, Sodium Level 136, Potassium Level 3.8, Chloride Level 97L, Carbon Dioxide Level 28, Anion Gap 11, Blood Urea Nitrogen 12, Creatinine 0.7, Estimat Glomerular Filtration Rate > 60, Glucose Level 145H, Calcium Level 8.7 Current Medications Medications (Trade) Dose Ordered Sig/Radha Route PRN Reason Start Time Stop Time Status Last Admin Dose Admin Acetaminophen (Tylenol) 650 mg Q4H PRN ORAL fever 12/28/16 14:30 01/27/17 14:29 01/07/17 19:35 Al Hydroxide/Mg Hydroxide (Mylanta II) 30 ml Q6H PRN ORAL dyspepsia 12/28/16 14:30 01/27/17 14:29 Aspirin (Ecotrin) 81 mg DAILY ORAL 12/29/16 09:00 01/28/17 08:59 01/08/17 08:35 Atorvastatin Calcium (Lipitor) 40 mg BEDTIME ORAL 12/28/16 21:00 01/27/17 20:59 01/07/17 21:35 Dextrose (Dextrose 50%) STAT PRN IV Hypoglycemia 12/28/16 14:45 01/27/17 14:44 Dextrose/Sodium Chloride (D5 0.45% NS) 1,000 ml @ 75 mls/hr [id number] IV 12/28/16 17:00 01/27/17 16:59 01/07/17 21:00 Heparin Sodium (Porcine) (Heparin 5000 units/ml) 5,000 units EVERY 12 HOURS SUBQ 12/28/16 21:00 01/27/17 20:59 01/08/17 08:36 Levetiracetam 1500 mg 1,500 mg Q12HR ORAL 12/28/16 21:00 01/27/17 20:59 01/08/17 08:35 Lorazepam (Ativan 2mg/ml 1ml) 2 mg Q1H PRN IV seizures 01/04/17 11:00 01/11/17 10:59 Morphine Sulfate (Morphine Sulfate) 1 mg Q4H PRN IVP For Pain 4-10 01/04/17 11:30 01/11/17 11:29 Ondansetron HCl (Zofran) 4 mg Q6H PRN IVP Nausea & Vomiting 12/28/16 15:30 01/27/17 15:29 01/01/17 03:38 Pantoprazole (Protonix) 40 mg EVERY 12 HOURS IVP 01/05/17 09:00 02/04/17 08:59 01/08/17 10:02 Phenytoin (Dilantin) 200 mg EVERY 12 HOURS ORAL 12/28/16 21:00 01/27/17 20:59 01/08/17 08:35 Polyethylene Glycol (Miralax) 17 gm HSPRN PRN ORAL Constipation 12/28/16 21:00 01/27/17 20:59 Sodium Phosphate (Fleet's Sodium Phosl Enema) 133 ml DAILYPRN PRN RECTAL constipation 01/06/17 09:45 02/05/17 09:44 Sorbitol (Sorbitol) 30 ml Q8H PRN NG constipation 01/05/17 09:45 02/04/17 09:44 01/06/17 08:18 Valproic Acid (Depakene) 1,000 mg EVERY 12 HOURS ORAL 12/28/16 21:30 01/27/17 21:29 01/08/17 08:34 Zolpidem Tartrate (Ambien) 5 mg HSPRN PRN ORAL Insomnia 12/28/16 21:00 01/27/17 20:59 LUKE ANDINO Jan 08, 2017 18:42
[2017-01-08] MEDS: D5 1/2NS 1,000 ML IV SCH (19:40)
[2017-01-08 20:00] VITALS: BP 127/80
[2017-01-09] VITALS (7 sets, daily range): BP systolic 132–158; BP diastolic 71–89
[2017-01-09 07:01] LABS: BASOPHILS % (AUTO) 1.1 % (0.0-2.0); EOSINOPHILS % (AUTO) 1.1 % (0.0-3.0); LYMPHOCYTES % (AUTO) 17.4 % (20.0-45.0); MEAN CORPUSCULAR HGB CONC 33.8 G/DL (32.0-36.0); MEAN CORPUSCULAR VOLUME 92 FL (80-99); MEAN PLATELET VOLUME 7.3 FL (6.5-10.1); MONOCYTES % (AUTO) 9.8 % (1.0-10.0); NEUTROPHILS % (AUTO) 70.6 % (45.0-75.0); PLATELET COUNT 306 K/UL (150-450); RED BLOOD COUNT 4.24 M/UL (4.70-6.10); WHITE BLOOD COUNT 11.1 K/UL (4.8-10.8)
[2017-01-09 07:34] LABS: ANION GAP 15 (5-15); CALCIUM 9.1 mg/dL (8.6-10.2); CARBON DIOXIDE 27 mEQ/L (20-30); CHLORIDE 97 mEQ/L (98-107); CREATININE 0.6 mg/dL (0.7-1.2); GLOMERULAR FILTRATION RATE > 60 mL/min (>60); HEMOLYSIS 3; SODIUM 139 mEQ/L (135-145)
[2017-01-09] MEDS: Aspirin EC 81mg tab ORAL SCH (08:30)
[2017-01-09] MEDS: Phenytoin Susp 100mg/4ml ORAL SCH ×2 (08:30→20:30)
[2017-01-09] MEDS: levETIRAcetam 500mg/5ml Liquid ORAL SCH ×2 (08:30→20:31)
[2017-01-09] MEDS: Valproic Acid 250mg/5ml Liquid ORAL SCH ×2 (08:30→20:30)
[2017-01-09] MEDS: Heparin 5000 units/ml inj SUBQ SCH ×2 (08:31→20:32)
[2017-01-09] MEDS: D5 1/2NS 1,000 ML IV SCH ×2 (08:33→22:14)
[2017-01-09] MEDS: Pantoprazole Inj IVP SCH ×2 (10:10→20:31)
--- NOTE | 2017-01-09 11:40 | GI Progress Note ---
Assessment/Plan Problems: (1) Encounter for PEG (percutaneous endoscopic gastrostomy) ICD Codes: Z43.1 - Encounter for attention to gastrostomy SNOMED: 659257150, 945246243 (2) DM (diabetes mellitus) ICD Codes: E11.9 - Type 2 diabetes mellitus without complications SNOMED: 11005555 (3) Anemia ICD Codes: D64.9 - Anemia, unspecified SNOMED: 286532542 (4) Uncontrolled seizures ICD Codes: R56.9 - Unspecified convulsions SNOMED: 58826179 (5) Seizure disorder ICD Codes: G40.909 - Epilepsy, unspecified, not intractable, without status epilepticus SNOMED: 229528412 Status: stable Status Narrative Discussed with Dr. Campoverde. Assessment/Plan Status post successful percutaneous endoscopic gastrostomy placement. RECOMMENDATIONS: ok for DC per GI standpoint 1. Abdominal binder. 2. Elevate the head of the bed at all times. 3. G-tube flush. 4. G-tube care. 5. GTFs, tolerating 6. The patient received a dose of antibiotics prior to this procedure. Subjective Subjective limited Objective Last 24 Hour Vital Signs Date Time Temp Pulse Resp B/P Pulse Ox O2 Delivery O2 Flow Rate FiO2 01/09/17 08:00 97.0 18 18 142/83 94 Room Air 01/09/17 04:00 98.6 116 18 141/87 93 Room Air 01/09/17 00:00 99.1 114 18 132/71 92 Room Air 01/08/17 20:00 99.5 104 18 127/80 95 Room Air 01/08/17 16:00 98.2 105 18 140/85 94 Nasal Cannula 01/08/17 11:57 98.4 105 18 124/76 92 Room Air Intake and Output 01/08/17 01/09/17 19:00 07:00 Intake Total 1150 ml 1730 ml Output Total 450 ml Balance 1150 ml 1280 ml Free Water 190 ml 200 ml IV Total 300 ml 750 ml Tube Feeding 660 ml 120 ml Other 660 ml Output Urine Total 450 ml # Voids 1 3 Laboratory Tests Test 01/09/17 04:50 White Blood Count 11.1 K/UL (4.8-10.8) H Red Blood Count 4.24 M/UL (4.70-6.10) L Hemoglobin 13.1 G/DL (14.2-18.0) L Hematocrit 38.9 % (42.0-52.0) L Mean Corpuscular Volume 92 FL (80-99) Mean Corpuscular Hemoglobin 31.0 PG (27.0-31.0) Mean Corpuscular Hemoglobin Concent 33.8 G/DL (32.0-36.0) Red Cell Distribution Width 13.0 % (11.6-14.8) Platelet Count 306 K/UL (150-450) Mean Platelet Volume 7.3 FL (6.5-10.1) Neutrophils (%) (Auto) 70.6 % (45.0-75.0) Lymphocytes (%) (Auto) 17.4 % (20.0-45.0) L Monocytes (%) (Auto) 9.8 % (1.0-10.0) Eosinophils (%) (Auto) 1.1 % (0.0-3.0) Basophils (%) (Auto) 1.1 % (0.0-2.0) Sodium Level 139 mEQ/L (135-145) Potassium Level 4.0 mEQ/L (3.4-4.9) Chloride Level 97 mEQ/L (98-107) L Carbon Dioxide Level 27 mEQ/L (20-30) Anion Gap 15 (5-15) Blood Urea Nitrogen 16 mg/dL (7-23) Creatinine 0.6 mg/dL (0.7-1.2) L Estimat Glomerular Filtration Rate > 60 mL/min (>60) Glucose Level 140 mg/dL (74-106) H Calcium Level 9.1 mg/dL (8.6-10.2) Height (Feet): 5 Height (Inches): 3.00 Weight (Pounds): 142 General Appearance: no apparent distress, alert Cardiovascular: normal rate Respiratory/Chest: normal breath sounds, no respiratory distress Abdominal Exam: site - c/argenis/Fe Ga N.P. Jan 09, 2017 11:40
[2017-01-09] MEDS: Sorbitol Solution UD 30ml NG PRN (12:30)
--- NOTE | 2017-01-09 18:21 | Pulmonology Progress Note ---
Assessment/Plan Problems: (1) Multi-infarct dementia (2) Uncontrolled seizures (3) Status post stroke (4) DM (diabetes mellitus) Assessment/Plan Neuro f/u adjust seizure meds pt/ot Gtube placed yesterday tolerating diet Subjective ROS Limited/Unobtainable: No Interval Events: more awake Allergies: Coded Allergies: No Known Allergies (Unverified , 01/07/16) Objective Last 24 Hour Vital Signs Date Time Temp Pulse Resp B/P Pulse Ox O2 Delivery O2 Flow Rate FiO2 01/09/17 16:15 112 01/09/17 16:00 98.1 120 20 150/89 92 Room Air 01/09/17 13:30 101.5 01/09/17 12:00 101.5 115 20 144/84 94 Room Air 01/09/17 08:00 97.0 118 18 142/83 94 Room Air 01/09/17 04:00 98.6 116 18 141/87 93 Room Air 01/09/17 00:00 99.1 114 18 132/71 92 Room Air 01/08/17 20:00 99.5 104 18 127/80 95 Room Air Intake and Output 01/08/17 01/09/17 19:00 07:00 Intake Total 1150 ml 1730 ml Output Total 450 ml Balance 1150 ml 1280 ml Free Water 190 ml 200 ml IV Total 300 ml 750 ml Tube Feeding 660 ml 120 ml Other 660 ml Output Urine Total 450 ml # Voids 1 3 Objective General Appearance: WD/WN Lines, tubes and drains: peripheral, HEENT: normocephalic, atraumatic Neck: non-tender, normal alignment Respiratory/Chest: chest wall non-tender, lungs clear Heart: regular Ext: nos C/C/E Laboratory Tests 01/09/17 04:50: White Blood Count 11.1H, Red Blood Count 4.24L, Hemoglobin 13.1L, Hematocrit 38.9L, Mean Corpuscular Volume 92, Mean Corpuscular Hemoglobin 31.0, Mean Corpuscular Hemoglobin Concent 33.8, Red Cell Distribution Width 13.0, Platelet Count 306, Mean Platelet Volume 7.3, Neutrophils (%) (Auto) 70.6, Lymphocytes (% ) (Auto) 17.4L, Monocytes (%) (Auto) 9.8, Eosinophils (%) (Auto) 1.1, Basophils (%) (Auto) 1.1, Sodium Level 139, Potassium Level 4.0, Chloride Level 97L, Carbon Dioxide Level 27, Anion Gap 15, Blood Urea Nitrogen 16, Creatinine 0.6L, Estimat Glomerular Filtration Rate > 60, Glucose Level 140H, Calcium Level 9.1 Current Medications Medications (Trade) Dose Ordered Sig/Radha Route PRN Reason Start Time Stop Time Status Last Admin Dose Admin Acetaminophen (Tylenol) 650 mg Q4H PRN ORAL fever 12/28/16 14:30 01/27/17 14:29 01/09/17 12:31 Al Hydroxide/Mg Hydroxide (Mylanta II) 30 ml Q6H PRN ORAL dyspepsia 12/28/16 14:30 01/27/17 14:29 Aspirin (Ecotrin) 81 mg DAILY ORAL 12/29/16 09:00 01/28/17 08:59 01/09/17 08:30 Atorvastatin Calcium (Lipitor) 40 mg BEDTIME ORAL 12/28/16 21:00 01/27/17 20:59 01/08/17 20:46 Dextrose (Dextrose 50%) STAT PRN IV Hypoglycemia 12/28/16 14:45 01/27/17 14:44 Dextrose/Sodium Chloride (D5 0.45% NS) 1,000 ml @ 75 mls/hr [id number] IV 12/28/16 17:00 01/27/17 16:59 01/09/17 08:33 Heparin Sodium (Porcine) (Heparin 5000 units/ml) 5,000 units EVERY 12 HOURS SUBQ 12/28/16 21:00 01/27/17 20:59 01/09/17 08:31 Levetiracetam 1500 mg 1,500 mg Q12HR ORAL 12/28/16 21:00 01/27/17 20:59 01/09/17 08:30 Lorazepam (Ativan 2mg/ml 1ml) 2 mg Q1H PRN IV seizures 01/04/17 11:00 01/11/17 10:59 Morphine Sulfate (Morphine Sulfate) 1 mg Q4H PRN IVP For Pain 4-10 01/04/17 11:30 01/11/17 11:29 Ondansetron HCl (Zofran) 4 mg Q6H PRN IVP Nausea & Vomiting 12/28/16 15:30 01/27/17 15:29 01/01/17 03:38 Pantoprazole (Protonix) 40 mg EVERY 12 HOURS IVP 01/05/17 09:00 02/04/17 08:59 01/09/17 10:10 Phenytoin (Dilantin) 200 mg EVERY 12 HOURS ORAL 12/28/16 21:00 01/27/17 20:59 01/09/17 08:30 Polyethylene Glycol (Miralax) 17 gm HSPRN PRN ORAL Constipation 12/28/16 21:00 01/27/17 20:59 Sodium Phosphate (Fleet's Sodium Phosl Enema) 133 ml DAILYPRN PRN RECTAL constipation 01/06/17 09:45 02/05/17 09:44 Sorbitol (Sorbitol) 30 ml Q8H PRN NG constipation 01/05/17 09:45 02/04/17 09:44 01/09/17 12:30 Valproic Acid (Depakene) 1,000 mg EVERY 12 HOURS ORAL 12/28/16 21:30 01/27/17 21:29 01/09/17 08:30 Zolpidem Tartrate (Ambien) 5 mg HSPRN PRN ORAL Insomnia 12/28/16 21:00 01/27/17 20:59 LUKE ANDINO Jan 09, 2017 18:21
[2017-01-10 03:53] VITALS: BP 152/81
[2017-01-10 07:17] LABS: BASOPHILS % (AUTO) 0.6 % (0.0-2.0); EOSINOPHILS % (AUTO) 0.1 % (0.0-3.0); MEAN CORPUSCULAR HEMOGLOBIN 30.5 PG (27.0-31.0); MEAN CORPUSCULAR HGB CONC 33.2 G/DL (32.0-36.0); MEAN CORPUSCULAR VOLUME 92 FL (80-99); MEAN PLATELET VOLUME 6.9 FL (6.5-10.1); NEUTROPHILS % (AUTO) 78.4 % (45.0-75.0); PLATELET COUNT 332 K/UL (150-450); RED BLOOD COUNT 4.31 M/UL (4.70-6.10); RED CELL DISTRIBUTION WIDTH 12.8 % (11.6-14.8)
[2017-01-10 07:58] LABS: ANION GAP 16 (5-15); CARBON DIOXIDE 25 mEQ/L (20-30); CHLORIDE 95 mEQ/L (98-107); CREATININE 0.6 mg/dL (0.7-1.2); GLOMERULAR FILTRATION RATE > 60 mL/min (>60); HEMOLYSIS 9; SODIUM 136 mEQ/L (135-145)
[2017-01-10 08:21] VITALS: BP 157/92
[2017-01-10] MEDS: Phenytoin Susp 100mg/4ml ORAL SCH ×2 (08:35→20:41)
[2017-01-10] MEDS: Aspirin EC 81mg tab ORAL SCH (08:35)
[2017-01-10] MEDS: Valproic Acid 250mg/5ml Liquid ORAL SCH ×2 (08:35→20:41)
[2017-01-10] MEDS: levETIRAcetam 500mg/5ml Liquid ORAL SCH ×2 (08:36→20:42)
[2017-01-10] MEDS: Pantoprazole Inj IVP SCH (08:36)
[2017-01-10] MEDS: Heparin 5000 units/ml inj SUBQ SCH ×2 (08:37→20:43)
--- NOTE | 2017-01-10 10:56 | GI Progress Note ---
Assessment/Plan Problems: (1) Encounter for PEG (percutaneous endoscopic gastrostomy) ICD Codes: Z43.1 - Encounter for attention to gastrostomy SNOMED: 134064899, 107562125 (2) DM (diabetes mellitus) ICD Codes: E11.9 - Type 2 diabetes mellitus without complications SNOMED: 31223184 (3) Anemia ICD Codes: D64.9 - Anemia, unspecified SNOMED: 694105369 (4) Uncontrolled seizures ICD Codes: R56.9 - Unspecified convulsions SNOMED: 32940170 (5) Seizure disorder ICD Codes: G40.909 - Epilepsy, unspecified, not intractable, without status epilepticus SNOMED: 675133452 Status: stable Status Narrative Discussed with Dr. Campoverde. Assessment/Plan Status post successful percutaneous endoscopic gastrostomy placement. RECOMMENDATIONS: ok for DC per GI standpoint 1. Abdominal binder. 2. Elevate the head of the bed at all times. 3. G-tube flush. 4. G-tube care. 5. GTFs, tolerating Subjective Subjective limited Objective Last 24 Hour Vital Signs Date Time Temp Pulse Resp B/P Pulse Ox O2 Delivery O2 Flow Rate FiO2 01/10/17 08:21 98.4 108 20 157/92 94 Room Air 01/10/17 03:53 98.6 113 18 152/81 93 Room Air 18.0 01/09/17 23:40 101.2 120 18 158/86 92 Room Air 01/09/17 22:57 100.0 01/09/17 20:00 100.4 116 18 150/75 92 Room Air 01/09/17 16:15 112 01/09/17 16:00 98.1 120 20 150/89 92 Room Air 01/09/17 12:00 101.5 115 20 144/84 94 Room Air Intake and Output 01/09/17 01/10/17 19:00 07:00 Intake Total 1195 ml 1475 ml Output Total 1 ml Balance 1194 ml 1475 ml Free Water 130 ml 200 ml IV Total 525 ml 675 ml Tube Feeding 540 ml 600 ml Output Urine Total 1 ml # Voids 4 4 Laboratory Tests Test 01/10/17 05:00 White Blood Count 14.0 K/UL (4.8-10.8) H Red Blood Count 4.31 M/UL (4.70-6.10) L Hemoglobin 13.1 G/DL (14.2-18.0) L Hematocrit 39.6 % (42.0-52.0) L Mean Corpuscular Volume 92 FL (80-99) Mean Corpuscular Hemoglobin 30.5 PG (27.0-31.0) Mean Corpuscular Hemoglobin Concent 33.2 G/DL (32.0-36.0) Red Cell Distribution Width 12.8 % (11.6-14.8) Platelet Count 332 K/UL (150-450) Mean Platelet Volume 6.9 FL (6.5-10.1) Neutrophils (%) (Auto) 78.4 % (45.0-75.0) H Lymphocytes (%) (Auto) 9.0 % (20.0-45.0) L Monocytes (%) (Auto) 12.0 % (1.0-10.0) H Eosinophils (%) (Auto) 0.1 % (0.0-3.0) Basophils (%) (Auto) 0.6 % (0.0-2.0) Sodium Level 136 mEQ/L (135-145) Potassium Level 4.0 mEQ/L (3.4-4.9) Chloride Level 95 mEQ/L (98-107) L Carbon Dioxide Level 25 mEQ/L (20-30) Anion Gap 16 (5-15) H Blood Urea Nitrogen 17 mg/dL (7-23) Creatinine 0.6 mg/dL (0.7-1.2) L Estimat Glomerular Filtration Rate > 60 mL/min (>60) Glucose Level 227 mg/dL (74-106) H Calcium Level 9.0 mg/dL (8.6-10.2) Height (Feet): 5 Height (Inches): 3.00 Weight (Pounds): 142 General Appearance: no apparent distress, alert Cardiovascular: normal rate Respiratory/Chest: normal breath sounds, no respiratory distress Abdominal Exam: site - c/d/i Fe Rao N.P. Jan 10, 2017 10:56
[2017-01-10] MEDS: D5 1/2NS 1,000 ML IV SCH (11:30)
[2017-01-10 12:21] VITALS: BP 132/78
[2017-01-10] MEDS ORDERED: D5 1/2NS 1000ml IV ONE (13:16)
[2017-01-10 16:01] VITALS: BP 146/89
--- NOTE | 2017-01-10 19:17 | Pulmonology Progress Note ---
Assessment/Plan Problems: (1) Multi-infarct dementia (2) Uncontrolled seizures (3) Status post stroke (4) DM (diabetes mellitus) Assessment/Plan Neuro f/u adjust seizure meds pt/ot Gtube placed yesterday tolerating diet dc planning in process might go to rehab on [place] Subjective ROS Limited/Unobtainable: Yes Interval Events: looks comfortable Allergies: Coded Allergies: No Known Allergies (Unverified , 01/07/16) Objective Last 24 Hour Vital Signs Date Time Temp Pulse Resp B/P Pulse Ox O2 Delivery O2 Flow Rate FiO2 01/10/17 16:01 98.0 115 20 146/89 95 Room Air 01/10/17 12:21 98.6 119 20 132/78 95 Room Air 01/10/17 08:21 98.4 108 20 157/92 94 Room Air 01/10/17 03:53 98.6 113 18 152/81 93 Room Air 18.0 01/09/17 23:40 101.2 120 18 158/86 92 Room Air 01/09/17 22:57 100.0 01/09/17 20:00 100.4 116 18 150/75 92 Room Air Intake and Output 01/09/17 01/10/17 19:00 07:00 Intake Total 1195 ml 1475 ml Output Total 1 ml Balance 1194 ml 1475 ml Free Water 130 ml 200 ml IV Total 525 ml 675 ml Tube Feeding 540 ml 600 ml Output Urine Total 1 ml # Voids 4 4 Objective General Appearance: WD/WN Lines, tubes and drains: peripheral, HEENT: normocephalic, atraumatic Neck: non-tender, normal alignment Respiratory/Chest: chest wall non-tender, lungs clear Heart: regular Ext: nos C/C/E Laboratory Tests 01/10/17 05:00: White Blood Count 14.0H, Red Blood Count 4.31L, Hemoglobin 13.1L, Hematocrit 39.6L, Mean Corpuscular Volume 92, Mean Corpuscular Hemoglobin 30.5, Mean Corpuscular Hemoglobin Concent 33.2, Red Cell Distribution Width 12.8, Platelet Count 332, Mean Platelet Volume 6.9, Neutrophils (%) (Auto) 78.4H, Lymphocytes ( %) (Auto) 9.0L, Monocytes (%) (Auto) 12.0H, Eosinophils (%) (Auto) 0.1, Basophils (%) (Auto) 0.6, Sodium Level 136, Potassium Level 4.0, Chloride Level 95L, Carbon Dioxide Level 25, Anion Gap 16H, Blood Urea Nitrogen 17, Creatinine 0.6L, Estimat Glomerular Filtration Rate > 60, Glucose Level 227H, Calcium Level 9.0 Current Medications Medications (Trade) Dose Ordered Sig/Radha Route PRN Reason Start Time Stop Time Status Last Admin Dose Admin Acetaminophen (Tylenol) 650 mg Q4H PRN ORAL fever 12/28/16 14:30 01/27/17 14:29 01/09/17 21:58 Al Hydroxide/Mg Hydroxide (Mylanta II) 30 ml Q6H PRN ORAL dyspepsia 12/28/16 14:30 01/27/17 14:29 Aspirin (Ecotrin) 81 mg DAILY ORAL 12/29/16 09:00 01/28/17 08:59 01/10/17 08:35 Atorvastatin Calcium (Lipitor) 40 mg BEDTIME ORAL 12/28/16 21:00 01/27/17 20:59 01/09/17 20:31 Dextrose (Dextrose 50%) STAT PRN IV Hypoglycemia 12/28/16 14:45 01/27/17 14:44 Dextrose/Sodium Chloride (D5 0.45% NS) 1,000 ml @ 75 mls/hr [id number] IV 12/28/16 17:00 01/27/17 16:59 01/10/17 11:30 Heparin Sodium (Porcine) (Heparin 5000 units/ml) 5,000 units EVERY 12 HOURS SUBQ 12/28/16 21:00 01/27/17 20:59 01/10/17 08:37 Levetiracetam 1500 mg 1,500 mg Q12HR ORAL 12/28/16 21:00 01/27/17 20:59 01/10/17 08:36 Lorazepam (Ativan 2mg/ml 1ml) 2 mg Q1H PRN IV seizures 01/04/17 11:00 01/11/17 10:59 Morphine Sulfate (Morphine Sulfate) 1 mg Q4H PRN IVP For Pain 4-10 01/04/17 11:30 01/11/17 11:29 Ondansetron HCl (Zofran) 4 mg Q6H PRN IVP Nausea & Vomiting 12/28/16 15:30 01/27/17 15:29 01/01/17 03:38 Pantoprazole (Protonix) 40 mg Q12HR GT 01/10/17 21:00 02/09/17 20:59 Phenytoin (Dilantin) 200 mg EVERY 12 HOURS ORAL 12/28/16 21:00 01/27/17 20:59 01/10/17 08:35 Polyethylene Glycol (Miralax) 17 gm HSPRN PRN ORAL Constipation 12/28/16 21:00 01/27/17 20:59 Sodium Phosphate (Fleet's Sodium Phosl Enema) 133 ml DAILYPRN PRN RECTAL constipation 01/06/17 09:45 02/05/17 09:44 Sorbitol (Sorbitol) 30 ml Q8H PRN NG constipation 01/05/17 09:45 02/04/17 09:44 01/09/17 12:30 Valproic Acid (Depakene) 1,000 mg EVERY 12 HOURS ORAL 12/28/16 21:30 01/27/17 21:29 01/10/17 08:35 Zolpidem Tartrate (Ambien) 5 mg HSPRN PRN ORAL Insomnia 12/28/16 21:00 01/27/17 20:59 LUKE ANDINO Jan 10, 2017 19:17
[2017-01-10 20:00] VITALS: BP 142/83
[2017-01-10] MEDS: Pantoprazole 40mg pkt GT SCH (20:41)
[2017-01-11] VITALS: BP 141/83
[2017-01-11] MEDS: D5 1/2NS 1,000 ML IV SCH (00:05)
[2017-01-11 04:00] VITALS: BP 135/86
[2017-01-11 06:03] LABS: BASOPHILS % (AUTO) 1.2 % (0.0-2.0); EOSINOPHILS % (AUTO) 0.3 % (0.0-3.0); LYMPHOCYTES % (AUTO) 12.7 % (20.0-45.0); MEAN CORPUSCULAR HGB CONC 33.4 G/DL (32.0-36.0); MEAN CORPUSCULAR VOLUME 93 FL (80-99); MEAN PLATELET VOLUME 7.2 FL (6.5-10.1); MONOCYTES % (AUTO) 13.6 % (1.0-10.0); NEUTROPHILS % (AUTO) 72.2 % (45.0-75.0); PLATELET COUNT 315 K/UL (150-450); RED BLOOD COUNT 4.26 M/UL (4.70-6.10); RED CELL DISTRIBUTION WIDTH 13.1 % (11.6-14.8); WHITE BLOOD COUNT 13.2 K/UL (4.8-10.8)
[2017-01-11 06:26] LABS: ANION GAP 11 (5-15); CALCIUM 8.7 mg/dL (8.6-10.2); CARBON DIOXIDE 26 mEQ/L (20-30); CHLORIDE 96 mEQ/L (98-107); CREATININE 0.7 mg/dL (0.7-1.2); GLOMERULAR FILTRATION RATE > 60 mL/min (>60); HEMOLYSIS 13; POTASSIUM 4.7 mEQ/L (3.4-4.9); SODIUM 133 mEQ/L (135-145)
[2017-01-11 08:22] VITALS: BP 151/80
[2017-01-11] MEDS: Phenytoin Susp 100mg/4ml ORAL SCH (09:11)
[2017-01-11] MEDS: Pantoprazole 40mg pkt GT SCH (09:11)
[2017-01-11] MEDS: levETIRAcetam 500mg/5ml Liquid ORAL SCH (09:12)
[2017-01-11] MEDS: Valproic Acid 250mg/5ml Liquid ORAL SCH (09:12)
[2017-01-11] MEDS: Aspirin EC 81mg tab ORAL SCH (09:13)
[2017-01-11] MEDS: Heparin 5000 units/ml inj SUBQ SCH (09:15)
--- NOTE | 2017-01-11 10:24 | GI Progress Note ---
Assessment/Plan Problems: (1) Encounter for PEG (percutaneous endoscopic gastrostomy) ICD Codes: Z43.1 - Encounter for attention to gastrostomy SNOMED: 532632221, 766485774 (2) DM (diabetes mellitus) ICD Codes: E11.9 - Type 2 diabetes mellitus without complications SNOMED: 97755174 (3) Anemia ICD Codes: D64.9 - Anemia, unspecified SNOMED: 906621267 (4) Uncontrolled seizures ICD Codes: R56.9 - Unspecified convulsions SNOMED: 69102202 (5) Seizure disorder ICD Codes: G40.909 - Epilepsy, unspecified, not intractable, without status epilepticus SNOMED: 279084727 Status: unchanged Status Narrative Discussed with Dr. Campoverde. Assessment/Plan Status post successful percutaneous endoscopic gastrostomy placement. RECOMMENDATIONS: ok for DC per GI standpoint 1. Abdominal binder. 2. Elevate the head of the bed at all times. 3. G-tube flush. 4. G-tube care. 5. GTFs, tolerating 6. fu labs Subjective Subjective limited Objective Last 24 Hour Vital Signs Date Time Temp Pulse Resp B/P Pulse Ox O2 Delivery O2 Flow Rate FiO2 01/11/17 08:22 98.2 112 20 151/80 95 Room Air 01/11/17 04:00 98.2 116 22 135/86 96 01/11/17 01:30 99.0 01/11/17 00:00 101.8 135 22 141/83 89 Room Air 01/11/17 00:00 101.8 111 22 141/83 98 Room Air 01/10/17 20:00 97.9 121 22 142/83 92 Room Air 01/10/17 16:01 98.0 115 20 146/89 95 Room Air 01/10/17 12:21 98.6 119 20 132/78 95 Room Air Intake and Output 01/10/17 01/11/17 19:00 07:00 Intake Total 2440 ml 1400 ml Balance 2440 ml 1400 ml Free Water 1300 ml 100 ml IV Total 825 ml 900 ml Tube Feeding 315 ml 400 ml # Voids 4 3 Laboratory Tests Test 01/11/17 05:30 White Blood Count 13.2 K/UL (4.8-10.8) H Red Blood Count 4.26 M/UL (4.70-6.10) L Hemoglobin 13.2 G/DL (14.2-18.0) L Hematocrit 39.5 % (42.0-52.0) L Mean Corpuscular Volume 93 FL (80-99) Mean Corpuscular Hemoglobin 31.0 PG (27.0-31.0) Mean Corpuscular Hemoglobin Concent 33.4 G/DL (32.0-36.0) Red Cell Distribution Width 13.1 % (11.6-14.8) Platelet Count 315 K/UL (150-450) Mean Platelet Volume 7.2 FL (6.5-10.1) Neutrophils (%) (Auto) 72.2 % (45.0-75.0) Lymphocytes (%) (Auto) 12.7 % (20.0-45.0) L Monocytes (%) (Auto) 13.6 % (1.0-10.0) H Eosinophils (%) (Auto) 0.3 % (0.0-3.0) Basophils (%) (Auto) 1.2 % (0.0-2.0) Sodium Level 133 mEQ/L (135-145) L Potassium Level 4.7 mEQ/L (3.4-4.9) Chloride Level 96 mEQ/L (98-107) L Carbon Dioxide Level 26 mEQ/L (20-30) Anion Gap 11 (5-15) Blood Urea Nitrogen 18 mg/dL (7-23) Creatinine 0.7 mg/dL (0.7-1.2) Estimat Glomerular Filtration Rate > 60 mL/min (>60) Glucose Level 158 mg/dL (74-106) H Hemoglobin A1c 6.1 % (< 6.0) H Calcium Level 8.7 mg/dL (8.6-10.2) Height (Feet): 5 Height (Inches): 3.00 Weight (Pounds): 142 General Appearance: no apparent distress, alert Cardiovascular: normal rate Respiratory/Chest: normal breath sounds, no respiratory distress Abdominal Exam: site - c/d/Fe Ga N.P. Jan 11, 2017 10:24
[2017-01-11 11:53] VITALS: BP 146/82
[2017-01-11] MEDS ORDERED: D5 1/2NS 1000ml IV ONE (13:24)
--- NOTE | 2017-01-11 22:20 | Pulmonology Progress Note ---
Assessment/Plan Problems: (1) Multi-infarct dementia (2) Uncontrolled seizures (3) Status post stroke (4) DM (diabetes mellitus) Assessment/Plan Neuro f/u adjust seizure meds pt/ot Gtube placed yesterday tolerating diet dc planning in process might go to rehab on [place] Subjective Allergies: Coded Allergies: No Known Allergies (Unverified , 01/07/16) Objective Last 24 Hour Vital Signs Date Time Temp Pulse Resp B/P Pulse Ox O2 Delivery O2 Flow Rate FiO2 01/11/17 11:53 98.0 110 20 146/82 95 Room Air 01/11/17 08:22 98.2 112 20 151/80 95 Room Air 01/11/17 04:00 98.2 116 22 135/86 96 01/11/17 01:30 99.0 01/11/17 00:00 101.8 135 22 141/83 89 Room Air 01/11/17 00:00 101.8 111 22 141/83 98 Room Air Intake and Output 01/10/17 01/11/17 19:00 07:00 Intake Total 2440 ml 1400 ml Balance 2440 ml 1400 ml Free Water 1300 ml 100 ml IV Total 825 ml 900 ml Tube Feeding 315 ml 400 ml # Voids 4 3 Objective General Appearance: WD/WN Lines, tubes and drains: peripheral, HEENT: normocephalic, atraumatic Neck: non-tender, normal alignment Respiratory/Chest: chest wall non-tender, lungs clear Heart: regular Ext: nos C/C/E Laboratory Tests 01/11/17 05:30: White Blood Count 13.2H, Red Blood Count 4.26L, Hemoglobin 13.2L, Hematocrit 39.5L, Mean Corpuscular Volume 93, Mean Corpuscular Hemoglobin 31.0, Mean Corpuscular Hemoglobin Concent 33.4, Red Cell Distribution Width 13.1, Platelet Count 315, Mean Platelet Volume 7.2, Neutrophils (%) (Auto) 72.2, Lymphocytes (% ) (Auto) 12.7L, Monocytes (%) (Auto) 13.6H, Eosinophils (%) (Auto) 0.3, Basophils (%) (Auto) 1.2, Sodium Level 133L, Potassium Level 4.7, Chloride Level 96L, Carbon Dioxide Level 26, Anion Gap 11, Blood Urea Nitrogen 18, Creatinine 0.7, Estimat Glomerular Filtration Rate > 60, Glucose Level 158H, Hemoglobin A1c 6.1H, Calcium Level 8.7 LUKE ANDINO Jan 11, 2017 22:20
[2017-01-14] MEDS ORDERED: DEPAKOTE250 MG PO (08:05)
[2017-01-14] MEDS ORDERED: DILANTIN100 MG ORAL (08:08)
[2017-01-14] MEDS ORDERED: DEPAKOTE125 MG PO (08:08)
[2017-01-14] MEDS ORDERED: KEPPRA500 MG ORAL (08:08)
--- NOTE | 2017-01-14 08:41 | Discharge Summary ---
Discharge Summary Hospital Course Date of Admission Dec 27, 2016 at 23:00 Date of Discharge Jan 11, 2017 at 13:25 Admitting Diagnosis seizures HPI Gavin Kenyon is a 61 year old male who was admitted on Dec 27, 2016 at 23:00 for Seizures Hospital Course dc summary #[id number] Discharge Medications New Medications: Divalproex Sodium (Depakote) 125 Mg Tablet.dr 1000 MG PO BID, #60 TAB Levetiracetam (Keppra) 250 Mg Tablet 1500 MG ORAL EVERY 12 HOURS, #60 TAB 0 Refills Phenytoin Sodium Extended* (Dilantin*) 100 Mg Capsule 200 MG ORAL TWICE A DAY, #60 CAP 0 Refills Continued Medications: Aspirin* (Aspir 81*) 81 Mg Tablet.dr 81 MG ORAL DAILY, TAB Atorvastatin Calcium* (Lipitor*) 40 Mg Tablet 40 MG ORAL BEDTIME, #30 TAB 0 Refills Discontinued Medications: Calcium Carbonate/Vitamin D3 (Calcium 600 + Vit D 400 Tablet) 1 Each Tablet 1 EACH PO DAILY, TAB Diazepam (Diastat Acudial) 1 Each Kit 1 EACH RC ONCE, #1 KIT Divalproex Sodium (Divalproex Sodium Er) 500 Mg Tab.er.24h 500 MG ORAL EVERY 12 HOURS for 30 Days, TAB Donepezil Hcl (Aricept) 23 Mg Tablet 5 MG ORAL DAILY, TAB Swallow whole with water; do NOT crush or chew Levetiracetam* (Levetiracetam*) 500 Mg Tablet 500 MG ORAL TWICE A DAY, #60 TAB 0 Refills Multivitamins* (Multivitamins*) 1 Each Tablet 1 TAB ORAL DAILY, TAB 0 Refills Naproxen* (Naproxen*) 375 Mg Tablet.dr 220 MG ORAL TWICE A DAY, TAB Phenytoin Sodium Extended* (Dilantin*) 100 Mg Capsule 300 MG ORAL BEDTIME, #90 CAP Sertraline Hcl (Sertraline Hcl) 20 Mg/1 Ml Oral.conc 50 MG PO DAILY, ML [Levetiracetam] () 500 MG TAB 500 MG ORAL Q12HR, #60 Discharge Condition Upon Discharge: stable Discharge Disposition Patient was discharged to SNF/Subacute Facility(03) Discharge Diagnoses: Uriarte (Vanchtein),Edel RODRIGUEZ Jan 14, 2017 08:41
--- NOTE | 2017-01-14 22:08 | Discharge Summary 2 SIG ---
DATE OF ADMISSION: 12/27/2016 DATE OF DISCHARGE: 01/11/2017 REASON FOR ADMISSION: The patient is a 61-year-old male with past medical history of seizures and multiple CVA, who presented to emergency room for complaint of seizures x1 at home. The patient was unable to provide any information. The patient had multiple admissions in the past for the same reason. The patient is on Keppra and Dilantin at home. Reported compliant with medication. Questionable fall and head trauma. Upon arrival, the patient was unable to provide any information. No reported fever. No chills. No signs of distress. EKG revealed normal sinus rhythm. CT of the head revealed no acute intracranial pathology, but was consistent with old lacunar infarct. The loading dose of Dilantin was given. Keppra IV was given and the patient was admitted for further management. ADMITTING DIAGNOSES: 1. Chronic seizure disorder breakthrough activities. 2. Extensive ischemic cerebrovascular disease with multiple lacunar stroke. 3. Hypertension. 4. Hyperlipidemia. HOSPITAL STAY: The patient was admitted. Neurology consult was requested. Repeated CT of the head on 01/02/2017 again revealed no acute intracranial pathology. Seizure precaution was maintained. Dose of Dilantin and Keppra were both increased. The patient was started also on Depakote. Fall precautions were maintained. PT, OT and ST were ordered. However, the patient was not able to participate in PT, OT and ST activity initially. Swallow evaluation was failed. The speech therapist recommended NPO and nonoral feeding. The patient initially was on NG tube feeding with strict aspiration precaution. IV fluids were provided. The patient was on aspirin and statin. DVT prophylaxis was provided. GI consult was requested regarding G-tube placement. The family initially declined G-tube and later agreed to have a G-tube. The patient subsequently undergone EGD with placement of PEG on 01/07/2017. Abdominal binder was applied. Head of the bed was elevated. G-tube care was provided. G-tube feeding was slowly started. The patient was able to tolerate tube feeding. The family initially declined placement of patient to retirement facility. However, the patient needs strict close observation and monitoring for breakthrough seizure activity as well as the new G-tube placement so family finally agreed with the decision to transfer the patient to retirement facility. The placement was found and secured. On 01/11/2017, the patient was transferred to the retirement facility. DISCHARGE DIAGNOSES: 1. Chronic seizure disorder with refractory breakthrough episode. 2. Extensive ischemic cerebrovascular disease. 3. History of multiple old cerebrovascular accident. 4. Hypertension. 5. Hyperlipidemia. 6. Multi-infarct dementia/vascular dementia. 7. Dysphagia. 8. Status post esophagogastroduodenoscopy and percutaneous endoscopic gastrostomy placement. 9. Protein-calorie malnutrition. Of note, blood pressure was stable with the current regimen and not on any antihypertensive medication during the admission. Blood pressure was stable. Clonidine as needed. Closely watch blood pressure at the retirement facility and optimize antihypertensive regimen as needed. Closely watch blood sugar. The patient was noted to have hyperglycemia. Hemoglobin A1c was 6.1. May need to start sliding scale of insulin if hyperglycemia confirmed. DISCHARGE MEDICATIONS: See medication reconciliation list. DISCHARGE INSTRUCTIONS: The patient was discharged to retirement facility. FOLLOWUP: Follow up with medical doctor at the facility. Alli Chase M.D. I have been assigned to dictate discharge summary on this account and I was not involved in the patient's management. Edel Uriarte (vanchtein) N.PAlisa DR: ELENI JOB#: [id number] CC:
== END 2017-01-11 13:25 | DRG 53 ==
LOC: EDBD 19:53 → EMR 20:44 → 2E 23:00 → EDBEDREQ 12-28 01:32 → 2E 12-28 09:09 → 4W 12-28 13:58
PROC: 0DH63UZ Insertion of Feeding Device into Stomach, Percutaneous Approach (ICD-10-PCS; principal; 2017-01-07 12:18)
DX: G40.919 Epilepsy, unspecified, intractable, without status epilepticus (principal); G82.50 Quadriplegia, unspecified; E46 Unspecified protein-calorie malnutrition; R13.10 Dysphagia, unspecified; I10 Essential (primary) hypertension; Z86.73 Personal history of transient ischemic attack (TIA), and cerebral infarction without residual deficits; E11.9 Type 2 diabetes mellitus without complications; I69.365 Other paralytic syndrome following cerebral infarction, bilateral; E78.5 Hyperlipidemia, unspecified; F01.50 Vascular dementia, unspecified severity, without behavioral disturbance, psychotic disturbance, mood disturbance, and anxiety; R29.818 Other symptoms and signs involving the nervous system; E87.6 Hypokalemia
CPT/HCPCS: 36415; 70450; 74000; 74230; 80048; 80053; 80061; 80164; 80185; 80299; 82270; 82962; 83036; 83540; 83550; 83735; 84100; 84134; 85025; 85610; 85730; 86850; 86900; 86901; 93005; 94003; 94150; J1165; J2250; J2405